=== PATIENT | female | born 1950 | race Caucasian/White ===

== ENCOUNTER 2020-03-13 23:54 | Inpatient (IN) | payer OTHER, SELFPAY ==
--- NOTE | ~2020-03-13 | XR_ITS ---
XR wrist RT 2V DATE: 03/14/2020 13:12 INDICATION: Pain and swelling, rash. No injury. TECHNIQUE: AP and lateral views COMPARISON: None FINDINGS: Diffuse osteopenia. Osteoarthritic change at the first carpometacarpal joint, first digit interphalangeal joint. No fracture or dislocation, periosteal reaction or bone destruction. IMPRESSION: Diffuse osteopenia Osteoarthritis Reviewed, dictated and finalized at location A. INE OPERATOR
--- NOTE | ~2020-03-13 | US_ITS ---
EXAMINATION: US venous doppler UE RT DATE: 03/16/2020 09:18 INDICATION: Right upper limb pain and swelling. TECHNIQUE: Grayscale ultrasound images without and with compression and Doppler ultrasound images of the right upper extremity veins were obtained. COMPARISON: None. FINDINGS: The visualized portions of the right internal jugular vein, subclavian vein, axillary vein, brachial veins, basilic vein, cephalic vein, radial vein, and ulnar vein are patent. IMPRESSION: 1. No deep venous thrombosis. Reviewed, dictated and finalized at location A. STERED PHYSICAL THERAPIST
[2020-03-13 23:54] VITALS: BP 172/69; PULSE 91; RESP 18; TEMP 36.4; O2SAT 96
--- NOTE | 2020-03-14 00:01 | ED.SKABFB ---
HPI - Skin/Abscess/Foreign Bdy General Chief complaint: Skin/Abscess/Foreign Body Stated complaint: Right arm pain History of Present Illness HPI narrative: History limited by extremely poor historian. Brought in by EMS for hand pain. She reports that she has severe pain in the right hand for 1 day. She is not able to provide any further useful history. The snf provides somewhat inconsistent history. She is currently on what seems to be treatment for dermatitis. She may have been treated for cellulitis at some point. The snf reported that her hand was hot and painful, which was new tonight. Related Data Home Medications Medication Instructions Recorded Confirmed Medrol (Alejandro) 03/14/20 03/14/20 acetaminophen 325 mg PO PRN 03/14/20 albuterol sulfate 2.5 mg INHALATION Q4H PRN 03/14/20 aspirin mg PO 03/14/20 benzonatate 100 mg PO TID 03/14/20 benztropine 1 mg PO BID 03/14/20 cholecalciferol (vitamin D3) 125 mcg PO DAILY 03/14/20 [Vitamin D3] diphenhydramine HCl [Benadryl] 25 mg PO HS PRN 03/14/20 docusate sodium 100 mg PO BID 03/14/20 famotidine [Pepcid] 20 mg PO HS 03/14/20 fluoxetine 10 mg PO DAILY 03/14/20 fluticasone propionate [Flovent 1 puff INHALATION Q12H 03/14/20 HFA] furosemide 60 mg PO DAILY 03/14/20 hydroxyzine pamoate 25 mg PO HS 03/14/20 insulin glargine [Lantus Solostar SUBCUT 03/14/20 U-100 Insulin] insulin lispro 03/14/20 ipratropium-albuterol 3 ml INHALATION Q6H PRN 03/14/20 loperamide 2 mg PO Q6H PRN 03/14/20 losartan-hydrochlorothiazide tablet 03/14/20 meclizine 25 mg PO TID PRN 03/14/20 meloxicam 15 mg PO DAILY 03/14/20 montelukast 10 mg PO HS 03/14/20 nifedipine 30 mg PO DAILY 03/14/20 olanzapine 15 mg PO HS 03/14/20 omeprazole 20 mg PO DAILY 03/14/20 pen needle, diabetic [NovoFine 30] 03/14/20 03/14/20 potassium chloride 20 meq PO DAILY 03/14/20 pravastatin 40 mg PO HS 03/14/20 risperidone 6 mg PO HS 03/14/20 sodium chloride 1,000 mg PO DAILY 03/14/20 tetrahydrozoline [Visine] drp 03/14/20 Allergies Allergy/AdvReac Type Severity Reaction Status Date / Time No Known Allergies Allergy Verified 03/14/20 00:03 Review of Systems Review of Systems: All systems reviewed & are unremarkable except as noted in HPI and below Constitutional: Constitutional: Denies fever(s) Cardiovascular: Cardiovascular: Denies chest pain Respiratory: Respiratory: Denies dyspnea Gastrointestinal: Gastrointestinal: Denies nausea Integumentary/Breasts: Skin/Breast: Reports rash Neurologic: Denies numbness and Denies weakness [facility] Past Medical History Medical History (Updated 03/14/20 @ 02:33 by Matty France MD) Hypertension Schizophrenia Type 1 diabetes mellitus without complications Social History Social History (Updated 03/14/20 @ 01:25 by Matty France MD) Living arrangements: snf Exam Const: General: no acute distress and alert Orientation/consciousness: patient oriented x3 HENMT: Head: normal to inspection Resp: Effort & Inspection: normal respiratory effort Auscultation: clear to auscultation bilaterally Cardio: Rate: regular rate Rhythm: regular rhythm GI: GI Palp: Yes Soft to palpation and No Tenderness to palpation present (GI) Skin: Other: erythematous rash to hands and wrists bilaterally Course Vital Signs Vital signs: Vital Signs Temperature 36.4 C L 03/13/20 23:54 Pulse Rate 91 03/13/20 23:54 Respiratory Rate 18 03/13/20 23:54 Blood Pressure 172/69 H 03/13/20 23:54 Pulse Oximetry 96 03/13/20 23:54 Temperature 36.4 C L 03/13/20 23:54 Pulse Rate 72 03/14/20 01:47 Respiratory Rate 18 03/14/20 01:47 Blood Pressure 148/65 H 03/14/20 01:47 Pulse Oximetry 97 03/14/20 01:47 MDM - Skin/Abscess/Foreign Bdy MDM Narrative Medical decision making narrative: Exam more consistent with dermatitis than cellulitis, but given the unreliable history and report acute onse
--- NOTE | 2020-03-14 00:51 | PC.NURSE ---
This nurse contacted Leelee from patient's [place] to get info. She stated the patient has been treated for cellulitis with bactrim, cephalexin , hydrocortisone cream, steroids, benadryl , and doxycycline. Leelee stated the patient did not complain of any pain until tonight. She stated the patient was diagnosed 02/19/20 with cellulitis on her arms.
[2020-03-14 01:46] LABS: Anion Gap 7 mmol/L (8-16); Blood Urea Nitrogen 12 mg/dL (7-17); Calcium 9.6 mg/dL (8.4-10.2); Carbon Dioxide 36 mmol/L (22-30); Chloride 82 mmol/L (98-107); Estimated Glomerular Filt Rate > 60; Glucose 236 mg/dL (65-105); Potassium 4.6 mmol/L (3.4-5.0); Sodium 125 mmol/L (137-145)
[2020-03-14 01:47] VITALS: BP 148/65; PULSE 72; RESP 18; O2SAT 97
[2020-03-14 02:02] LABS: Basophils Absolute Auto 0.1 K/mm3 (0.0-0.1); Basophils Percent Auto 0.5 % (0.2-1.2); Eosinophils Absolute Auto 0.1 K/mm3 (0-0.3); Eosinophils Percent Auto 1.3 % (0-4.4); Hematocrit 38.8 % (37.0-47.0); Hemoglobin 12.7 g/dL (12.0-15.0); Immature Granulocyte Absolute 0.09 K/mm3 (0.00-0.031); Immature Granulocyte Percent A 0.9 % (0-0.5); Lymphocytes Absolute Auto 1.55 K/mm3 (0.9-3.2); Mean Corpuscular HGB Conc 32.7 g/dl (32-36); Mean Corpuscular Hemoglobin 26.1 pg (26-34); Mean Corpuscular Volume 79.8 fl (80-100); Mean Platelet Volume 9.5 fl (7.4-10.4); Monocytes Absolute Auto 0.6 K/mm3 (0.1-0.6); Monocytes Percent Auto 5.3 % (2.6-8.5); Platelet Count Result 352 k/mm3 (150-375); Red Blood Count 4.86 M/mm3 (4.2-5.4); Red Cell Distribution Width 12.6 % (11.5-14.5); White Blood Count 10.3 K/mm3 (4.5-10.0)
[2020-03-14 02:26] LABS: CRP < 0.5 mg/dL (<1.0)
[2020-03-14 03:05] VITALS: BP 153/66; PULSE 65; RESP 19; TEMP 36.7; O2SAT 97
[2020-03-14 03:11] LABS: Erythrocyte Sedimentation Rate 23 mm/hr (0-20)
[2020-03-14 03:15] VITALS: BP 163/63; PULSE 72; RESP 20; TEMP 36.1; O2SAT 93; BMI 40.6
--- NOTE | 2020-03-14 03:44 | ADMGEN ---
This patient, Nona Florez, was admitted to 2 Medical Room 259-. Patient/family oriented to hospital policies and general routines including ID bracelet, bed and alarms, visiting hours, pain management, procedures, bathroom and other care routines, personal items, smoking policy, room service/diet, and visiting hours. Information on how to activate the Rapid Response Team has been discussed. Patient/Family are encouraged to report perceived risks to care and to ask questions if they do not understand what they are told or what they should do.
[2020-03-14 07:57] LABS: Glucose Point of Care 144 (65-105)
--- NOTE | 2020-03-14 08:36 | PM.IMHP ---
H&P: HPI History of Present Illness Date/Time: 03/14/20 08:36 Chief Complaint: Bilateral arm rash Narrative: Nona Florez is a 69 year old female with a past medical history of diabetes, hypertension, schizophrenia, and hyperlipidemia who presented emergency room from [facility] due to erythema of her right arm. I spoke to the detention staff who states this started in the middle of February and she was initially prescribed doxycycline 100 mg b.i.d. and she completed 10 days of this. This did not help a rash so they started a Medrol Dosepak, Benadryl cream, and Pepcid which did not seem to help either. The ER reports that the patient has had severe pain for 1 day but the detention states this is not necessarily true and has been going on for a while. The detention does not think the rash has worsened, it just has not gotten better. The patient is a fair historian and but is not always able to tell me accurate information. She confirms that she has had this rash since last month but it just started hurting in the last few days. She says it itches and hurts bowl. It does not appear to be getting worse or better. She has not used any new products or medications that she is aware of. She has had no neck pain, neck stiffness, change in vision, nausea, vomiting, fevers, chills, abdominal pain, chest pain or shortness of breath. No signs of COVID-19. She had diarrhea yesterday but was only 1 occurrence and had has not recurred. She has no history of autoimmune disease although again, she is not the greatest historian. Review of Systems Review of Systems: All systems reviewed & are unremarkable except as noted in HPI and below PMFSH Past Medical History Medical History (Updated 03/14/20 @ 13:25 by Lynda Cuba PA-C) Asthma GERD (gastroesophageal reflux disease) Hyperlipemia Hypertension Schizophrenia Type 1 diabetes mellitus without complications Surgical History Surgical History (Updated 03/14/20 @ 13:20 by Lynda Cuba PA-C) History of cholecystectomy Family History Family History (Updated 03/14/20 @ 13:21 by Lynda Cuba PA-C) Mother , Patient states she diet pneumonia, unknown other family history including children. No problems noted. Social History Social History (Updated 03/14/20 @ 13:21 by Lynda Cuba PA-C) Social History: Patient does not smoke or drink. She would like to be a full code. She is a long-term resident of [facility] Smoking status: Never smoker Alcohol intake: never Substance use: never Substance use type: does not use Living arrangements: detention Spiritual care concerns: No Meds Home Medications and Allergies Home Medications Medication Instructions Recorded Confirmed Type Medrol (Alejandro) See Rx Instructions .ROUTE .COMPLEX 03/14/20 03/14/20 History acetaminophen 325 mg PO Q4-6H PRN 03/14/20 03/14/20 History albuterol sulfate 2.5 mg INHALATION Q4H PRN 03/14/20 03/14/20 History aspirin 81 mg PO DAILY 03/14/20 03/14/20 History benzonatate 100 mg PO TID 03/14/20 03/14/20 History benztropine 1 mg PO BID 03/14/20 03/14/20 History cholecalciferol (vitamin D3) 125 mcg PO DAILY 03/14/20 03/14/20 History [Vitamin D3] diphenhydramine HCl [Benadryl] 25 mg PO HS PRN 03/14/20 03/14/20 History docusate sodium 100 mg PO BID 03/14/20 03/14/20 History famotidine [Pepcid] 20 mg PO HS 03/14/20 03/14/20 History fluoxetine 10 mg PO DAILY 03/14/20 03/14/20 History fluticasone propionate [Flovent 1 puff INHALATION Q12H 03/14/20 03/14/20 History HFA] furosemide 60 mg PO DAILY 03/14/20 03/14/20 History hydroxyzine pamoate 25 mg PO HS 03/14/20 03/14/20 History insulin glargine [Lantus Solostar 55 unit SUBCUT QA 03/14/20 03/14/20 History U-100 Insulin] insulin glargine [Lantus Solostar 80 unit SUBCUT HS 03/14/20 03/14/20 History U-100 Insulin] insulin lispro See Rx Instructions .ROUTE .COMPLEX 03/14
[2020-03-14 09:24] LABS: Anion Gap 2 mmol/L (8-16); Blood Urea Nitrogen 12 mg/dL (7-17); Calcium 9.4 mg/dL (8.4-10.2); Carbon Dioxide 37 mmol/L (22-30); Chloride 86 mmol/L (98-107); Estimated CRCL calculation 96 ml/min; Estimated Glomerular Filt Rate > 60; Glucose 116 mg/dL (65-105); Hemoglobin A1C 8.4 % (<5.7); Potassium 4.1 mmol/L (3.4-5.0); Sodium 125 mmol/L (137-145)
[2020-03-14 12:06] LABS: Glucose Point of Care 181 (65-105)
[2020-03-14] MEDS: SODIUM CHLORIDE 1 GM TABLET PO (12:15)
[2020-03-14] MEDS: LOSARTAN POTASSIUM 100 MG TABLET PO (12:15)
[2020-03-14] MEDS: NIFEdipine 30 MG TAB.ER.24 PO (12:15)
[2020-03-14] MEDS: MELOXICAM 7.5 MG TABLET 15 MG PO (12:15)
[2020-03-14] MEDS: BENZTROPINE MESYLATE 1 MG TABLET PO ×2 (12:15→17:50)
[2020-03-14] MEDS: PANTOPRAZOLE 40 MG TABLET PO (12:15)
[2020-03-14] MEDS: ASPIRIN 81 MG ENTERIC TABLET PO (12:15)
[2020-03-14] MEDS: methylPREDNISolone 2 MG TABLET 4 MG PO (12:16)
[2020-03-14 13:50] VITALS: BP 169/69; PULSE 104; RESP 17; TEMP 36.7; O2SAT 92
[2020-03-14 16:57] LABS: Glucose Point of Care 200 (65-105)
--- NOTE | 2020-03-14 18:00 | PC.NURSE ---
Dr. Hernandez performed excisional skin biopsy of left arm at bedside. Patient tolerated procedure well. Specimen sent to pathology. Bandaid applied to site.
--- NOTE | 2020-03-14 18:23 | WPDCN ---
Assessment and Plan Assessment and plan (1) Rash of both hands: Code(s): R21 - Rash and other nonspecific skin eruption Status: Acute Assessment and Plan: Skin biopsy tonight. I will be available for additional evaluation if needed. HPI Data of Consult Date/Time: 03/14/20 18:23 Requesting Physician: Lynda Cuba PA-C Primary Care Provider: MANAGER CASE PHYSICIAN Consult Narrative Narrative: Nona Florez is a 69 year old very agreeable female from a [facility] who is admitted due to macular rash of the hands and forearms of unknown duration. The patient is not a good historian but seems to represent that this rash has been on her for months. She says the rash vee and is uncomfortable. She believes it is due to chemicals . She has not been Covi tested as far as I know. She has been treated with Doxycycline, Prednisone and Benadryl to no avail. She has a lengthy list of prescribed medications. Her CRP is 0.5. WBC is 10.3 with slight neutrophilia. I am requested to take a skin biopsy. The patient has no objections to that. She says she is right handed, but has been using her left hand to eat because the right hurts too much. She did not flinch when i briefly examined her right hand. X-ray report suggests only mild osteoarthritis as visible pathology. I agree. The rash encompasses both entire hands and most of the entire forearms, but diminishes proximally. Does not extend above the elbows. There are no sores. The skin is smooth. The color is slightly scott. The patient does not withdraw to exam. She has mild eczema of the palms. Nails are unremarkable. [facility] Past Medical History Medical History (Updated 03/14/20 @ 18:59 by Himanshu Hernandez MD) Asthma GERD (gastroesophageal reflux disease) Hyperlipemia Hypertension Rash of both hands Burning macular rash of both hands and forearms. Not responding to usual treatment. Distribution suggests contact by normal daily activities such as hand washing. Schizophrenia Type 1 diabetes mellitus without complications Surgical History Surgical History (Updated 03/14/20 @ 13:20 by Lynda Cuba PA-C) History of cholecystectomy Family History Family History (Updated 03/14/20 @ 13:21 by Lynda Cuab PA-C) Mother , Patient states she diet pneumonia, unknown other family history including children. No problems noted. Social History Social History (Updated 03/14/20 @ 13:21 by Lynda Cuba PA-C) Social History: Patient does not smoke or drink. She would like to be a full code. She is a long-term resident of [facility] Smoking status: Never smoker Alcohol intake: never Substance use: never Substance use type: does not use Living arrangements: [facility] Spiritual care concerns: No Meds Home Medications and Allergies Home Medications Medication Instructions Recorded Confirmed Type Medrol (Alejandro) See Rx Instructions .ROUTE .COMPLEX 03/14/20 03/14/20 History acetaminophen 325 mg PO Q4-6H PRN 03/14/20 03/14/20 History albuterol sulfate 2.5 mg INHALATION Q4H PRN 03/14/20 03/14/20 History aspirin 81 mg PO DAILY 03/14/20 03/14/20 History benzonatate 100 mg PO TID 03/14/20 03/14/20 History benztropine 1 mg PO BID 03/14/20 03/14/20 History cholecalciferol (vitamin D3) 125 mcg PO DAILY 03/14/20 03/14/20 History [Vitamin D3] diphenhydramine HCl [Benadryl] 25 mg PO HS PRN 03/14/20 03/14/20 History docusate sodium 100 mg PO BID 03/14/20 03/14/20 History famotidine [Pepcid] 20 mg PO HS 03/14/20 03/14/20 History fluoxetine 10 mg PO DAILY 03/14/20 03/14/20 History fluticasone propionate [Flovent 1 puff INHALATION Q12H 03/14/20 03/14/20 History HFA] furosemide 60 mg PO DAILY 03/14/20 03/14/20 History hydroxyzine pamoate 25 mg PO HS 03/14/20 03/14/20 History insulin glargine [Lantus Solostar 55 unit SUBCUT QAM 03/14/20 03/14/20 History U-100 Insulin] insulin glargine [Lantus S
--- NOTE | 2020-03-14 19:03 | PM.PROC ---
Procedure Note - Detailed Date of procedure: 03/14/20 Pre-op diagnosis: Dermatitis/cellulitis of hands Procedure performed: Open 1 x 0.5 cm skin biopsy from left extensor forearm at bedside. Description of procedure: The patient had signed consent for this biopsy. The skin was prepped with alcohol. Anesthesia was given with 1% lidocaine with epinephrine. The full thickness biopsy was taken with a #11 blade. The skin was closed with intradermal 4-0 Vicryl sutures. Tolerated well. Specimen sent to Pathology in [place]. Anesthesia: local Surgeon: Himanshu Hernandez MD
[2020-03-14 20:00] VITALS: PULSE 100; RESP 17; O2SAT 92
[2020-03-14] MEDS: FAMOTIDINE 20 MG TABLET PO (20:44)
[2020-03-14] MEDS: risperiDONE 1 MG TABLET 6 MG PO (20:44)
[2020-03-14] MEDS: PRAVASTATIN SODIUM 20 MG TABLET 40 MG PO (20:45)
[2020-03-14] MEDS: MONTELUKAST SODIUM 10 MG TABLET PO (20:45)
[2020-03-14] MEDS: diphenhydrAMINE HCl CAP 25 MG CAPSULE PO (20:48)
[2020-03-14 21:05] LABS: Glucose Point of Care 276 (65-105)
[2020-03-14] MEDS: INSULIN GLARGINE (*BKC) 100 UNITS/ML 55 UNITS SUB-Q (21:05)
[2020-03-14 21:42] VITALS: BP 157/65; PULSE 100; RESP 17; TEMP 36.7; O2SAT 92
[2020-03-15 05:40] LABS: Hemoglobin 12.2 g/dL (12.0-15.0); Mean Corpuscular HGB Conc 32.1 g/dl (32-36); Mean Corpuscular Hemoglobin 26.5 pg (26-34); Mean Corpuscular Volume 82.6 fl (80-100); Mean Platelet Volume 8.9 fl (7.4-10.4); Platelet Count Result 293 k/mm3 (150-375); White Blood Count 8.7 K/mm3 (4.5-10.0)
[2020-03-15 05:50] LABS: Alanine Aminotransferase 17 U/L (4-35); Albumin Level 3.6 g/dL (3.5-5.1); Alkaline Phosphatase 67 U/L (38-126); Anion Gap 3 mmol/L (8-16); Aspartate Amino Transferase 16 U/L (14-36); Bilirubin,Total 0.3 mg/dL (0.2-1.3); Blood Urea Nitrogen 15 mg/dL (7-17); CRP < 0.5 mg/dL (<1.0); Calcium 9.1 mg/dL (8.4-10.2); Carbon Dioxide 35 mmol/L (22-30); Chloride 88 mmol/L (98-107); Estimated CRCL calculation 96 ml/min; Estimated Glomerular Filt Rate > 60; Glucose 181 mg/dL (65-105); Potassium 4.2 mmol/L (3.4-5.0); Sodium 126 mmol/L (137-145)
[2020-03-15 05:56] VITALS: BP 149/64; PULSE 78; RESP 18; TEMP 36.5; O2SAT 94
[2020-03-15] MEDS: ASPIRIN 81 MG ENTERIC TABLET PO (08:41)
[2020-03-15] MEDS: BETAMETHASONE/CLOTRIMAZOLE CR 15 GM TUBE 1 APPLIC TOPICAL ×2 (08:42→20:13)
[2020-03-15] MEDS: BENZTROPINE MESYLATE 1 MG TABLET PO ×2 (08:42→17:23)
[2020-03-15] MEDS: SODIUM CHLORIDE 1 GM TABLET PO (08:42)
[2020-03-15] MEDS: LOSARTAN POTASSIUM 100 MG TABLET PO (08:43)
[2020-03-15] MEDS: PANTOPRAZOLE 40 MG TABLET PO (08:43)
[2020-03-15] MEDS: MELOXICAM 7.5 MG TABLET 15 MG PO (08:43)
[2020-03-15] MEDS: NIFEdipine 30 MG TAB.ER.24 PO (08:43)
[2020-03-15] MEDS: INSULIN GLARGINE (*BKC) 100 UNITS/ML 35 UNITS SUB-Q (08:54)
[2020-03-15 09:20] VITALS: O2SAT 96
--- NOTE | 2020-03-15 10:47 | PM.IMPN ---
Progress Note: A&P Assessment and Plan (1) Rash of both hands: Code(s): R21 - Rash and other nonspecific skin eruption Status: Acute Assessment and Plan: As stated above, the papular blanchable rash affects both of her upper extremities -unclear etiology at this time -patient states that she uses Dermasil that has done so for years. I advised her to stop using it at this time while we try to sort things out -according to the detention doxycycline, Benadryl, Pepcid and methylprednisone did not improve the rash -and the rash has many differentials which can include dermatitis, psoriasis, fungal infection, sweets etc -patient had an excisional biopsy by Plastic surgery, awaiting pathology -x-ray of the right wrist without osseous abnormalities -I do not suspect systemic infection since her CRP is normal, no fever, and white blood cell count is now normal -no new medications or products (2) Hyponatremia: Code(s): E87.1 - Hypo-osmolality and hyponatremia Status: Acute Assessment and Plan: Patient's sodium is 125 on admission and still 126 -this is actually what is keeping her hospitalized at this time -detention states that her sodium on March 06, 2020 was 131 -she is currently on salt tablets so I am going to continue with this at this time -I have held Lasix, hydrochlorothiazide and Prozac -will order urine sodium tomorrow once she has been off her diuretics -fluid restriction in place (3) Type 1 diabetes mellitus without complications: Code(s): E10.9 - Type 1 diabetes mellitus without complications Status: Inactive Assessment and Plan: Patient's last glucose was 181 -patient takes a high dose of Lantus: 55 units in the morning and 80 units at bedtime at home. Which have been confirmed -continue sliding scale insulin (will start lower than her normal but will likely have to increase) -adjust as necessary (4) Hypertension: Code(s): I10 - Essential (primary) hypertension Status: Inactive Assessment and Plan: Last blood pressure 149/64 -continue losartan and nifedipine -will hold hydrochlorothiazide and Lasix due to hyponatremia -hydralazine p.r.n. will be available as needed for systolic greater than 170 (5) Schizophrenia: Code(s): F20.9 - Schizophrenia, unspecified Status: Inactive Assessment and Plan: Chronic and stable -she has been in the detention since 2017 for this -continue benztropine, olanzapine, and risperidone -will hold the fluoxetine due to hyponatremia (6) GERD (gastroesophageal reflux disease): Code(s): K21.9 - Gastro-esophageal reflux disease without esophagitis Status: Acute Assessment and Plan: Continue Protonix (7) Asthma: Code(s): J45.909 - Unspecified asthma, uncomplicated Status: Inactive Assessment and Plan: Chronic and stable -p.r.n. Inhalers -continue singular Time Spent With Patient Time with patient: 25 - 35 minutes Subjective Date/time seen: 03/15/20 10:47 Interval history: Pt is a 69-year-old female here for hyponatremia and rash. Patient was seen today and states her right hand still feels very painful and she cannot do much with it. She says both arms do itch a little bit. They have not gotten better or worse. Pt denies nausea, vomiting, fevers, chills, constipation, diarrhea, chest pain, sob, cough, or abdominal pain. Review of Systems Review of Systems: All systems reviewed & are unremarkable except as noted in HPI and below Exam Narrative: Exam Narrative: General:Well developed well nourished patient HEENT: Normocephalic, atraumatic, PERRL, Sclerae anicteric, oral mucosa moist. Neck: Supple, no meningeal signs Resp: CTA Heart: RRR with no murmurs Abd: Soft, nontender. No pain to palpation. Positive bowel sounds Skin: Bilateral upper extremity rash. The rash appears papular and blanchable. D
[2020-03-15 11:53] LABS: Glucose Point of Care 371 (65-105)
[2020-03-15 11:53] LABS: Glucose Point of Care 162 (65-105)
[2020-03-15] MEDS: INSULIN ASPART (*BKC) 100 UNITS/ML SUB-Q ×2 (11:53→17:23)
[2020-03-15 14:00] VITALS: BP 134/59; PULSE 102; RESP 20; TEMP 36.6; O2SAT 95
[2020-03-15 17:27] LABS: Glucose Point of Care 270 (65-105)
[2020-03-15 18:11] LABS: SARS-CoV-2 RNA PCR Negative
[2020-03-15 20:00] VITALS: BP 144/56; PULSE 107; RESP 22; TEMP 37.3; O2SAT 92
[2020-03-15] MEDS: diphenhydrAMINE HCl CAP 25 MG CAPSULE PO ×2 (20:13→20:16)
[2020-03-15] MEDS: risperiDONE 1 MG TABLET 6 MG PO (20:13)
[2020-03-15] MEDS: MONTELUKAST SODIUM 10 MG TABLET PO (20:13)
[2020-03-15] MEDS: PRAVASTATIN SODIUM 20 MG TABLET 40 MG PO (20:14)
[2020-03-15] MEDS: FAMOTIDINE 20 MG TABLET PO (20:15)
[2020-03-15] MEDS: ACETAMINOPHEN 325 MG TABLET PO (20:16)
[2020-03-15] MEDS: INSULIN GLARGINE (*BKC) 100 UNITS/ML 55 UNITS SUB-Q (20:21)
[2020-03-15 20:36] LABS: Glucose Point of Care 233 (65-105)
[2020-03-16 04:00] VITALS: BP 162/79; PULSE 93; RESP 22; TEMP 36.1; O2SAT 92
[2020-03-16 06:46] LABS: Anion Gap 1 mmol/L (8-16); Blood Urea Nitrogen 14 mg/dL (7-17); Calcium 8.7 mg/dL (8.4-10.2); Carbon Dioxide 36 mmol/L (22-30); Chloride 92 mmol/L (98-107); Estimated CRCL calculation 96 ml/min; Estimated Glomerular Filt Rate > 60; Glucose 155 mg/dL (65-105); Potassium 4.3 mmol/L (3.4-5.0); Sodium 129 mmol/L (137-145)
[2020-03-16 08:55] LABS: Glucose Point of Care 157 (65-105)
[2020-03-16] MEDS: ASPIRIN 81 MG ENTERIC TABLET PO (09:28)
[2020-03-16] MEDS: MELOXICAM 7.5 MG TABLET 15 MG PO (09:29)
[2020-03-16] MEDS: LOSARTAN POTASSIUM 100 MG TABLET PO (09:29)
[2020-03-16] MEDS: PANTOPRAZOLE 40 MG TABLET PO (09:29)
[2020-03-16] MEDS: BETAMETHASONE/CLOTRIMAZOLE CR 15 GM TUBE 1 APPLIC TOPICAL ×2 (09:29→20:34)
[2020-03-16] MEDS: SODIUM CHLORIDE 1 GM TABLET PO (09:29)
[2020-03-16] MEDS: BENZTROPINE MESYLATE 1 MG TABLET PO ×2 (09:29→17:56)
[2020-03-16] MEDS: NIFEdipine 30 MG TAB.ER.24 PO (09:29)
[2020-03-16] MEDS: INSULIN GLARGINE (*BKC) 100 UNITS/ML 35 UNITS SUB-Q (09:35)
--- NOTE | 2020-03-16 10:13 | PM.IMPN ---
Progress Note: A&P Assessment and Plan (1) Rash of both hands: Code(s): R21 - Rash and other nonspecific skin eruption Status: Acute Assessment and Plan: As stated above, the papular blanchable rash affects both of her upper extremities -unclear etiology at this time -patient states that she uses Dermasil that has done so for years. I advised her to stop using it at this time while we try to sort things out -according to the correction doxycycline, Benadryl, Pepcid and methylprednisone did not improve the rash - the rash has many differentials which can include dermatitis, psoriasis, fungal infection, sweets etc -patient had an excisional biopsy by Plastic surgery, awaiting pathology -x-ray of the right wrist without osseous abnormalities and u/s shows no clot -I do think the pain is getting a little better. Will elevate -Continue ancef -I do not suspect systemic infection since her CRP is normal, no fever, and white blood cell count is now normal -no new medications or products (2) Hyponatremia: Code(s): E87.1 - Hypo-osmolality and hyponatremia Status: Acute Assessment and Plan: Patient's sodium is 125 on admission and better today at 129 -this is actually what is keeping her hospitalized at this time -correction states that her sodium on March 06, 2020 was 131 -she is currently on salt tablets so I am going to continue with this at this time -I have held Lasix, hydrochlorothiazide and Prozac -fluid restriction in place -no need for urine sodium at this time since it is improving and etiology likely from diuretics (3) Type 1 diabetes mellitus without complications: Code(s): E10.9 - Type 1 diabetes mellitus without complications Status: Inactive Assessment and Plan: Patient's last glucose was 157 -patient takes a high dose of Lantus: 55 units in the morning and 80 units at bedtime at home. Which have been confirmed -continue insulin but at a lower dose -continue sliding scale insulin -adjust as necessary (4) Hypertension: Code(s): I10 - Essential (primary) hypertension Status: Inactive Assessment and Plan: Last blood pressure 162/79 prior to home medications -continue losartan and nifedipine -will hold hydrochlorothiazide and Lasix due to hyponatremia -hydralazine p.r.n. will be available as needed for systolic greater than 170 (5) Schizophrenia: Code(s): F20.9 - Schizophrenia, unspecified Status: Inactive Assessment and Plan: Chronic and stable -she has been in the correction since 2017 for this -continue benztropine, olanzapine, and risperidone -will hold the fluoxetine due to hyponatremia (6) GERD (gastroesophageal reflux disease): Code(s): K21.9 - Gastro-esophageal reflux disease without esophagitis Status: Acute Assessment and Plan: Continue Protonix (7) Asthma: Code(s): J45.909 - Unspecified asthma, uncomplicated Status: Inactive Assessment and Plan: Chronic and stable -p.r.n. Inhalers -continue singular Additional Plan hopefully home in 1-2 days Subjective Date/time seen: 03/16/20 10:13 Interval history: Pt is a 69-year-old female here for hyponatremia and rash. Patient was seen today and states her right hand still feels very painful and itchy. She has not been keeping it elevated. She says the pain is slightly better than it was before. Pt denies nausea, vomiting, fevers, chills, constipation, diarrhea, chest pain, sob, cough, or abdominal pain. Exam Narrative: Exam Narrative: General:Well developed well nourished patient HEENT: Normocephalic, atraumatic, PERRL, Sclerae anicteric, oral mucosa moist. Neck: Supple, no meningeal signs Resp: CTA Heart: RRR with no murmurs Abd: Soft, nontender. No pain to palpation. Positive bowel sounds Skin: Bilateral upper extremity rash. The rash appears papular and blanchable. Desq
[2020-03-16 11:37] LABS: Glucose Point of Care 233 (65-105)
[2020-03-16] MEDS: INSULIN ASPART (*BKC) 100 UNITS/ML SUB-Q (11:38)
[2020-03-16 12:57] VITALS: PULSE 101; RESP 18; O2SAT 93
[2020-03-16 14:00] VITALS: BP 153/67; PULSE 101; RESP 20; TEMP 36.5; O2SAT 93
[2020-03-16 17:22] LABS: Glucose Point of Care 161 (65-105)
[2020-03-16 20:00] VITALS: BP 135/49; PULSE 79; RESP 22; TEMP 36.1; O2SAT 92
[2020-03-16] MEDS: risperiDONE 1 MG TABLET 6 MG PO (20:33)
[2020-03-16] MEDS: PRAVASTATIN SODIUM 20 MG TABLET 40 MG PO (20:33)
[2020-03-16] MEDS: FAMOTIDINE 20 MG TABLET PO (20:35)
[2020-03-16] MEDS: MONTELUKAST SODIUM 10 MG TABLET PO (20:36)
[2020-03-16] MEDS: INSULIN GLARGINE (*BKC) 100 UNITS/ML 55 UNITS SUB-Q (20:36)
[2020-03-16 20:45] LABS: Glucose Point of Care 144 (65-105)
[2020-03-17 04:00] VITALS: BP 156/63; PULSE 96; RESP 20; TEMP 36.5; O2SAT 94
[2020-03-17 06:00] LABS: Anion Gap 0 mmol/L (8-16); Blood Urea Nitrogen 12 mg/dL (7-17); Calcium 8.8 mg/dL (8.4-10.2); Carbon Dioxide 38 mmol/L (22-30); Chloride 95 mmol/L (98-107); Estimated CRCL calculation 82 ml/min; Estimated Glomerular Filt Rate > 60; Glucose 98 mg/dL (65-105); Potassium 4.1 mmol/L (3.4-5.0); Sodium 133 mmol/L (137-145)
[2020-03-17 07:45] LABS: Glucose Point of Care 95 (65-105)
[2020-03-17] MEDS: ASPIRIN 81 MG ENTERIC TABLET PO (08:03)
[2020-03-17] MEDS: BETAMETHASONE/CLOTRIMAZOLE CR 15 GM TUBE 1 APPLIC TOPICAL (08:04)
[2020-03-17] MEDS: LOSARTAN POTASSIUM 100 MG TABLET PO (08:04)
[2020-03-17] MEDS: SODIUM CHLORIDE 1 GM TABLET PO (08:04)
[2020-03-17] MEDS: PANTOPRAZOLE 40 MG TABLET PO (08:04)
[2020-03-17] MEDS: MELOXICAM 7.5 MG TABLET 15 MG PO (08:04)
[2020-03-17] MEDS: NIFEdipine 30 MG TAB.ER.24 PO (08:04)
[2020-03-17] MEDS: BENZTROPINE MESYLATE 1 MG TABLET PO (08:04)
[2020-03-17] MEDS: INSULIN GLARGINE (*BKC) 100 UNITS/ML 35 UNITS SUB-Q (08:13)
--- NOTE | 2020-03-17 09:02 | PM.DS ---
DS: Admitting Diagnosis Admitting Diagnosis Admitting Diagnosis: Rash, hyponatremia DS: Discharge Diagnosis Discharge Diagnosis (1) Rash of both hands: Code(s): R21 - Rash and other nonspecific skin eruption Status: Acute Assessment and Plan: As stated above, the papular blanchable rash affects both of her upper extremities -unclear etiology at this time but it did improve with Lotrisone, suspect fungal. -patient states that she uses Dermasil that has done so for years. I advised her to stop using it at this time while we try to sort things out -according to the long-term doxycycline, Benadryl, Pepcid and methylprednisone did not improve the rash - the rash has many differentials which can include dermatitis, psoriasis, fungal infection, sweets etc -patient had an excisional biopsy by Plastic surgery, awaiting pathology -x-ray of the right wrist without osseous abnormalities and u/s shows no clot -I do think the pain is getting a little better and improved with elevation -covered with ancef while here, no need for further abx -I do not suspect systemic infection since her CRP is normal, no fever, and white blood cell count is normal -no new medications or products (2) Hyponatremia: Code(s): E87.1 - Hypo-osmolality and hyponatremia Status: Acute Assessment and Plan: Patient's sodium is 125 on admission and better today at 133 -long-term states that her sodium on March 06, 2020 was 131 -she is currently on salt tablets so I am going to continue with this at this time -I have discontinued hctz and continue lasix and prozac -I have asked the NH to repeat the sodium in one week (3) Type 1 diabetes mellitus without complications: Code(s): E10.9 - Type 1 diabetes mellitus without complications Status: Inactive Assessment and Plan: Patient's last glucose was 163 -continue home insulin -A1c 8.4 (4) Hypertension: Code(s): I10 - Essential (primary) hypertension Status: Inactive Assessment and Plan: Last blood pressure 156/63 -continue losartan, lasix and nifedipine (5) Schizophrenia: Code(s): F20.9 - Schizophrenia, unspecified Status: Inactive Assessment and Plan: Chronic and stable -she has been in the long-term since 2017 for this -continue benztropine, olanzapine, and risperidone -will hold the fluoxetine due to hyponatremia (6) GERD (gastroesophageal reflux disease): Code(s): K21.9 - Gastro-esophageal reflux disease without esophagitis Status: Acute Assessment and Plan: Continue Protonix (7) Asthma: Code(s): J45.909 - Unspecified asthma, uncomplicated Status: Inactive Assessment and Plan: Chronic and stable -continue home treatment DS: Summary Hospital Course Hospital Course: Pt is a 69 y/o female who presented to the ED for arm pain and rash found to have hyponatremia. Vitals in the ER was temp 36.4, pulse 91, RR 18, bp 172/69, pulse 96. WBC 10.3, 12.7 hgb hct 38.8, platelets 352. Sodium 125, potassium 4.6, cl 82, co2 36, bun 12, cr 0.5, glucose 236. CRP normal. Patient was admitted to the hospitalist service and started on Ancef and was given antifungal cream with steroid cream. She underwent a right wrist x-ray as well as the right arm ultrasound to evaluate for DVTs and both were negative for acute pathology. The antifungal and steroid cream, as well as elevation, did help improve the pain and the erythema. A biopsy was taken but is still pending. As for her hyponatremia, her Lasix, Prozac, and hydrochlorothiazide was held and her sodium improved to 133 at the day of discharge. Because she was on Lasix and hydrochlorothiazide, the hydrochlorothiazide was discontinued and she should continue Lasix as well as her Prozac. I recommended her get a repeat sodium in 1 week and adjust medications further as needed. I do not think she need any more
[2020-03-17] MEDS: INSULIN GLARGINE (*BKC) 100 UNITS/ML 20 UNITS SUB-Q (10:32)
[2020-03-17 12:09] LABS: Glucose Point of Care 163 (65-105)
== END 2020-03-17 12:47 | DRG 426 ==
LOC: ANHED 03-14 02:33 → ANH2MED 03-14 02:45
PROVIDERS: Internal Medicine; Physician Assistant; Admitting Provider Family Medicine; Emergency Provider Emergency Medicine; Visit Provider Internal Medicine
DX: E87.1 Hypo-osmolality and hyponatremia (principal); B36.9 Superficial mycosis, unspecified; Z20.822 Contact with and (suspected) exposure to COVID-19; E10.9 Type 1 diabetes mellitus without complications; I10 Essential (primary) hypertension; F20.9 Schizophrenia, unspecified; K21.9 Gastro-esophageal reflux disease without esophagitis; J45.909 Unspecified asthma, uncomplicated; E78.5 Hyperlipidemia, unspecified; Z28.21 Immunization not carried out because of patient refusal; Z79.4 Long term (current) use of insulin; Z79.82 Long term (current) use of aspirin
CPT/HCPCS: 36415; 73100; 80048; 80076; 82948; 83036; 85025; 85027; 85652; 86140; 87040; 88305; 88312; 93971; 96365; 96366; 96367; 96376; 97110; 97116; 97161; 97165; 97530; 97535; 99285; A9270; C9803; G0378; G0379; J0131; J0690; J1815; U0003; U0005

== ENCOUNTER 2020-05-10 22:28 | Inpatient (IN) | payer OTHER, SELFPAY ==
--- NOTE | ~2020-05-10 | XR_ITS ---
EXAMINATION: XR chest 1V portable DATE: 05/10/2020 23:34 INDICATION: Shortness of breath. TECHNIQUE: A single frontal view of the chest was obtained. COMPARISON: None. FINDINGS: There are mild airspace opacities in the mid and lower lung zones. No pleural effusion or p neumothorax. Cardiomegaly is noted. IMPRESSION: 1. Mild airspace opacities in the mid and lower lung zones, consistent with atelectasis versus pneumo omar. 2. Cardiomegaly. Reviewed, dictated and finalized at location A. IMPRESSION: 1. Mild airspace opacities in the mid and lower lung zones, consistent with ate lectasis versus pneumonia. 2. Cardiomegaly.
[2020-05-10 22:30] VITALS: BP 142/59; PULSE 96; RESP 25; O2SAT 99
[2020-05-10 22:39] VITALS: BP 142/59; PULSE 95; RESP 25; O2SAT 97; O2SAT 98
--- NOTE | 2020-05-10 22:50 | ECG_ITS ---
Measurements Intervals [place] Rate: 96 P: 50 OR: 172 QRS: -45 QRSD: 92 T: 48 QT: 337 QTc: 427 Interpretive Statements SINUS RHYTHM VENTRICULAR PREMATURE COMPLEX AND FREQUENT ATRIAL PREMATURE COMPLEXES LOW QRS VOLTAGE IN PRECORDIAL LEADS ANTEROSEPTAL INFARCT, AGE INDETERMINATE INFERIOR INFARCT, AGE INDETERMINATE ABNORMAL ECG Electronically Signed On 05-11-2020 7:22:15 CDT by Ignacio Claire D.O.
[2020-05-10 22:51] VITALS: PULSE 96; RESP 22
--- NOTE | 2020-05-10 22:51 | ED.SOB ---
HPI - SOB/Dyspnea General Chief Complaint: Shortness of Breath/Dyspnea Stated Complaint: difficulty breathing Time Seen by Provider: 05/10/20 22:38 History of Present Illness HPI Narrative: History limited by poor historian. 69 yo female w/ h/o COPD, schizophrenia, hyponatremia brought in by EMS from care home for SOB. She reports that she has been SOB for at least 1 month. Much worse over the past few days. Primary with exertion. She also is not able to tolerate prone position. She does have a mild cough. She also reports worsening emeda throughout BLE and into her abdomen. No CP. She is on a salt pill as well as diuretics. She reports that she used to be on supplemental oxygen, but she does not need it any more. Related Data Home Medications Medication Instructions Recorded Confirmed Flovent HFA 1 puff INHALATION Q12H 03/14/20 03/14/20 Lantus Solostar U-100 Insulin 55 unit SUBCUT QA 03/14/20 03/14/20 Lantus Solostar U-100 Insulin 80 unit SUBCUT HS 03/14/20 03/14/20 acetaminophen 325 mg PO Q4-6H PRN 03/14/20 03/14/20 albuterol sulfate 2.5 mg INHALATION Q4H PRN 03/14/20 03/14/20 aspirin 81 mg PO DAILY 03/14/20 03/14/20 benzonatate 100 mg PO TID 03/14/20 03/14/20 benztropine 1 mg PO BID 03/14/20 03/14/20 cholecalciferol (vitamin D3) 125 mcg PO DAILY 03/14/20 03/14/20 [Vitamin D3] diphenhydramine HCl [Benadryl] 25 mg PO HS PRN 03/14/20 03/14/20 docusate sodium 100 mg PO BID 03/14/20 03/14/20 famotidine [Pepcid] 20 mg PO HS 03/14/20 03/14/20 fluoxetine 10 mg PO DAILY 03/14/20 03/14/20 hydroxyzine pamoate 25 mg PO HS 03/14/20 03/14/20 insulin lispro See Rx Instructions .ROUTE .COMPLEX 03/14/20 03/14/20 ipratropium-albuterol 3 ml INHALATION Q6H PRN 03/14/20 03/14/20 loperamide 2 mg PO Q6H PRN 03/14/20 03/14/20 meclizine 25 mg PO TID PRN 03/14/20 03/14/20 meloxicam 15 mg PO DAILY 03/14/20 03/14/20 montelukast 10 mg PO HS 03/14/20 03/14/20 nifedipine 30 mg PO DAILY 03/14/20 03/14/20 olanzapine 15 mg PO HS 03/14/20 03/14/20 omeprazole 20 mg PO DAILY 03/14/20 03/14/20 pen needle, diabetic 03/14/20 03/14/20 potassium chloride 20 meq PO DAILY 03/14/20 03/14/20 pravastatin 40 mg PO HS 03/14/20 03/14/20 risperidone 6 mg PO HS 03/14/20 03/14/20 sodium chloride 1,000 mg PO DAILY 03/14/20 03/14/20 tetrahydrozoline 1 drp EACH EYE DIRECTED 03/14/20 03/14/20 Allergies Allergy/AdvReac Type Severity Reaction Status Date / Time No Known Allergies Allergy Verified 03/14/20 00:03 Review of Systems Review of Systems: All systems reviewed & are unremarkable except as noted in HPI and below Constitutional: Constitutional: Reports fatigue, Denies fever(s) and Reports weakness Cardiovascular: Cardiovascular: Denies chest pain Respiratory: Respiratory: Reports cough and Reports dyspnea Gastrointestinal: Gastrointestinal: Denies abdominal pain, Reports bloating, Denies nausea and Denies vomiting Genitourinary: Genitourinary: Reports no additional female genitourinary complaints Musculoskeletal: Musculoskeletal: Denies back pain Neurologic: Reports system reviewed and no additional complaints, except as documented PMF Past Medical History Medical History Asthma GERD (gastroesophageal reflux disease) Hyperlipemia Hypertension Rash of both hands Burning macular rash of both hands and forearms. Not responding to usual treatment. Distribution suggests contact by normal daily activities such as hand washing. Schizophrenia Type 1 diabetes mellitus without complications Surgical History Surgical History History of cholecystectomy Family History Family History Mother , Patient states she diet pneumonia, unknown other family history including children. No problems noted. Social History Social History (Reviewed 05/11/20 @ 02:31 by Matty Kirby
[2020-05-10] MEDS: ALBUTEROL SULFATE NEB 2.5 MG/0.5 ML INH 5 MG INHALATION (23:04)
[2020-05-10] MEDS: IPRATROPIUM BR 0.02% INH SOLN 0.5 MG/2.5 ML VIAL INHALATION (23:04)
[2020-05-10 23:13] LABS: Alveolar/Arterial O2 Gradient 57.4 mmHg; Base Excess ABG 2.8 mEq/l (+/-2.0); Carboxyhemoglobin 0.8 % THb (0-2.0); Fractional Inspired Oxygen 28 %; HCO3 ABG 28.4 mEq/l (22.0-26.0); Methemoglobin ABG 0.4 %THb (0-1.5); Oxygen Content ABG 16.2 %vol (16.0-22.0); Oxygen Saturation ABG 96.4 % (95.0-100.0); PCO2 ABG 47.7 mmHg (35.0-45.0); PO2 FiO2 Ratio Arterial Blood 3.07 %; Reduced Hemoglobin 3.8 %THb (0-5.0); Total Hemoglobin 12.1 g/dL (12.0-18.0); pH ABG 7.392 (7.350-7.450)
[2020-05-10 23:14] LABS: Basophils Percent Auto 0.3 % (0.2-1.2); Eosinophils Absolute Auto 0.4 K/mm3 (0-0.3); Eosinophils Percent Auto 3.7 % (0-4.4); Hematocrit 35.9 % (37.0-47.0); Hemoglobin 11.2 g/dL (12.0-15.0); Immature Granulocyte Absolute 0.04 K/mm3 (0.00-0.031); Immature Granulocyte Percent A 0.3 % (0-0.5); Lymphocytes Absolute Auto 2.97 K/mm3 (0.9-3.2); Lymphocytes Percent Auto 25.1 % (18.3-44.2); Mean Corpuscular HGB Conc 31.2 g/dl (32-36); Mean Corpuscular Hemoglobin 26.2 pg (26-34); Mean Corpuscular Volume 84.1 fl (80-100); Mean Platelet Volume 9.7 fl (7.4-10.4); Monocytes Absolute Auto 0.8 K/mm3 (0.1-0.6); Monocytes Percent Auto 6.9 % (2.6-8.5); Neutrophils Absolute Auto 7.5 K/mm3 (1.3-6.7); Neutrophils Percent Auto 63.7 % (45.5-73.1); Platelet Count Result 241 k/mm3 (150-375); Red Blood Count 4.27 M/mm3 (4.2-5.4); Red Cell Distribution Width 12.7 % (11.5-14.5); White Blood Count 11.9 K/mm3 (4.5-10.0)
[2020-05-10 23:14] LABS: Device NASAL CANNULA; Modified Allen's Test Pass; Site Drawn RIGHT RADIAL
[2020-05-10 23:16] VITALS: PULSE 96; RESP 24
[2020-05-10 23:24] LABS: INR 0.9; Prothrombin Time 12.2 Seconds (11.1-14.7)
[2020-05-10 23:25] LABS: Partial Thromboplastin Time 45.3 SECONDS (22.3-36.8)
[2020-05-10 23:27] LABS: Anion Gap 5 mmol/L (8-16); Blood Urea Nitrogen 12 mg/dL (7-17); Carbon Dioxide 32 mmol/L (22-30); Chloride 91 mmol/L (98-107); Estimated CRCL calculation 74 ml/min; Estimated Glomerular Filt Rate > 60; Glucose 323 mg/dL (65-105); Potassium 3.9 mmol/L (3.4-5.0); Sodium 128 mmol/L (137-145)
[2020-05-10 23:39] LABS: NT Pro B Type Natriuretic Pept 24 PG/ML (5-100); Troponin I < 0.012 ng/mL (0.000-0.034)
[2020-05-11] VITALS (14 sets, daily range): BP systolic 111–183; BP diastolic 59–74; PULSE 79–114; RESP 17–24; TEMP 36.1–36.5; O2SAT 95–99; BMI 43.3
[2020-05-11 04:08] LABS: Glucose Point of Care 229 (65-105)
--- NOTE | 2020-05-11 04:17 | ADMGEN ---
This patient, Nona Florez, was admitted to Medical Room 348-. Patient/family oriented to hospital policies and general routines including ID bracelet, bed and alarms, visiting hours, pain management, procedures, bathroom and other care routines, personal items, smoking policy, room service/diet, and visiting hours. Information on how to activate the Rapid Response Team has been discussed. Patient/Family are encouraged to report perceived risks to care and to ask questions if they do not understand what they are told or what they should do.
[2020-05-11 08:40] LABS: Glucose Point of Care 149 (65-105)
[2020-05-11] MEDS: BENZONATATE 100 MG CAPSULE PO ×2 (10:16→17:26)
[2020-05-11] MEDS: ASPIRIN 81 MG ENTERIC TABLET PO (10:16)
[2020-05-11] MEDS: FLUTICASONE PROP 220 MCG (*SP) 12 GM INHALER 1 PUFF INHALATION ×2 (10:16→21:36)
[2020-05-11] MEDS: BENZTROPINE MESYLATE 1 MG TABLET PO ×2 (10:16→17:26)
[2020-05-11] MEDS: FUROSEMIDE INJ 40 MG/4 ML VIAL IV PUSH (10:17)
[2020-05-11] MEDS: DOCUSATE SODIUM 100 MG CAPSULE PO ×2 (10:17→17:26)
[2020-05-11] MEDS: MELOXICAM 7.5 MG TABLET 15 MG PO (10:17)
[2020-05-11] MEDS: FLUoxetine HCL 10 MG CAPSULE PO (10:17)
[2020-05-11] MEDS: CHOLECALCIFEROL 1,000 UNITS TABLET 5000 UNITS PO (10:17)
[2020-05-11] MEDS: PANTOPRAZOLE 40 MG TABLET PO (10:18)
[2020-05-11] MEDS: NIFEdipine 30 MG TAB.ER.24 PO (10:19)
[2020-05-11] MEDS: POTASSIUM CHLORIDE 20 MEQ PACKET (FOR LIQUID) PO (10:21)
[2020-05-11 12:04] LABS: Glucose Point of Care 161 (65-105)
[2020-05-11 12:22] LABS: Alveolar/Arterial O2 Gradient 63.6 mmHg; Base Excess ABG 8.4 mEq/l (+/-2.0); Fractional Inspired Oxygen 28 %; HCO3 ABG 34.7 mEq/l (22.0-26.0); Oxygen Content ABG 17.4 %vol (16.0-22.0); Oxygen Saturation ABG 94.2 % (95.0-100.0); Oxyhemoglobin 94.2 % THb (90.0-100.0); PCO2 ABG 55.2 mmHg (35.0-45.0); PO2 ABG 70.9 mmHg (80.0-100.0); PO2 FiO2 Ratio Arterial Blood 2.53 %; Total Hemoglobin 13.1 g/dL (12.0-18.0); pH ABG 7.416 (7.350-7.450)
[2020-05-11 12:24] LABS: Device NASAL CANNULA; Modified Allen's Test Pass; Site Drawn RIGHT RADIAL
--- NOTE | 2020-05-11 12:44 | PM.IMHP ---
H&P: HPI History of Present Illness Date/Time: 05/11/20 12:44 patient is 69-year-old female with history schizophrenia, morbidly obese, sleep apnea on CPAP presented to emergency department with a complaint shortness of breath patient been persisting for over a month and now getting progressively worse with exertion, patient denies any chest pain, shortness of breath, palpitation fever or chills, patient states see uses CPAP at a [facility], suspect most likely patient congestive heart failure I have started the patient on IV Lasix will do the cardiac echo to further evaluate, will continue to monitor. Chief Complaint: Shortness of breath Review of Systems Review of Systems: All systems reviewed & are unremarkable except as noted in HPI and below PMFSH Past Medical History Medical History Asthma GERD (gastroesophageal reflux disease) Hyperlipemia Hypertension Rash of both hands Burning macular rash of both hands and forearms. Not responding to usual treatment. Distribution suggests contact by normal daily activities such as hand washing. Schizophrenia Type 1 diabetes mellitus without complications Surgical History Surgical History History of cholecystectomy Family History Family History Mother , Patient states she diet pneumonia, unknown other family history including children. No problems noted. Social History Social History Social History: Patient does not smoke or drink. She would like to be a full code. She is a long-term resident of [facility] Smoking status: Never smoker Alcohol intake: never Substance use: never Substance use type: does not use Gender identity (if verbalized by the patient): Female Spiritual care concerns: No Meds Home Medications and Allergies Home Medications Medication Instructions Recorded Confirmed Type Flovent HFA 1 puff INHALATION Q12H 03/14/20 05/11/20 History Lantus Solostar U-100 Insulin 55 unit SUBCUT QAM 03/14/20 05/11/20 History Lantus Solostar U-100 Insulin 80 unit SUBCUT HS 03/14/20 05/11/20 History acetaminophen 325 mg PO Q4-6H PRN 03/14/20 05/11/20 History albuterol sulfate 2.5 mg INHALATION Q4H PRN 03/14/20 05/11/20 History aspirin 81 mg PO DAILY 03/14/20 05/11/20 History benzonatate 100 mg PO TID 03/14/20 05/11/20 History benztropine 1 mg PO BID 03/14/20 05/11/20 History cholecalciferol (vitamin D3) 125 mcg PO DAILY 03/14/20 05/11/20 History [Vitamin D3] diphenhydramine HCl [Benadryl] 25 mg PO HS PRN 03/14/20 05/11/20 History docusate sodium 100 mg PO BID 03/14/20 05/11/20 History famotidine [Pepcid] 20 mg PO HS 03/14/20 05/11/20 History fluoxetine 10 mg PO DAILY 03/14/20 05/11/20 History hydroxyzine pamoate 25 mg PO HS 03/14/20 05/11/20 History insulin lispro See Rx Instructions .ROUTE .COMPLEX 03/14/20 05/11/20 History ipratropium-albuterol 3 ml INHALATION Q6H PRN 03/14/20 05/11/20 History loperamide 2 mg PO Q6H PRN 03/14/20 05/11/20 History meclizine 25 mg PO TID PRN 03/14/20 05/11/20 History meloxicam 15 mg PO DAILY 03/14/20 05/11/20 History montelukast 10 mg PO HS 03/14/20 05/11/20 History nifedipine 30 mg PO DAILY 03/14/20 05/11/20 History olanzapine 15 mg PO HS 03/14/20 05/11/20 History omeprazole 20 mg PO DAILY 03/14/20 05/11/20 History potassium chloride 20 meq PO DAILY 03/14/20 05/11/20 History pravastatin 40 mg PO HS 03/14/20 05/11/20 History risperidone 6 mg PO HS 03/14/20 05/11/20 History sodium chloride 1,000 mg PO DAILY 03/14/20 05/11/20 History tetrahydrozoline 1 drp EACH EYE DIRECTED 03/14/20 05/11/20 History furosemide 40 mg PO DAILY #0 tablet 03/17/20 05/11/20 Rx Allergies Allergy/AdvReac Type Severity Reaction Status Date / Time No Known Allergies Allergy Verified
[2020-05-11] MEDS: ENOXAPARIN 40 MG/0.4 ML SYRINGE SUB-Q (15:32)
[2020-05-11 16:11] LABS: Glucose Point of Care 235 (65-105)
[2020-05-11] MEDS: INSULIN ASPART (*BKC) 100 UNITS/ML SUB-Q (16:21)
[2020-05-11] MEDS: MECLIZINE HCL 25 MG TABLET PO (21:28)
[2020-05-11] MEDS: MONTELUKAST SODIUM 10 MG TABLET PO (21:28)
[2020-05-11] MEDS: hydrOXYzine pamoate 25 MG CAPSULE PO (21:28)
[2020-05-11] MEDS: FAMOTIDINE 20 MG TABLET PO (21:29)
[2020-05-11] MEDS: PRAVASTATIN SODIUM 20 MG TABLET 40 MG PO (21:29)
[2020-05-11] MEDS: risperiDONE 1 MG TABLET 6 MG PO (21:30)
[2020-05-11] MEDS: INSULIN GLARGINE (*BKC) 100 UNITS/ML 16 UNITS SUB-Q (21:40)
[2020-05-11 21:43] LABS: Glucose Point of Care 120 (65-105)
[2020-05-11 22:40] LABS: SARS-CoV-2 RNA PCR Negative
[2020-05-12] VITALS (12 sets, daily range): BP systolic 122–132; BP diastolic 62–78; PULSE 84–121; RESP 18; TEMP 35.9–36.6; O2SAT 94–97
[2020-05-12 08:20] LABS: Hematocrit 39.6 % (37.0-47.0); Hemoglobin 12.2 g/dL (12.0-15.0); Mean Corpuscular HGB Conc 30.8 g/dl (32-36); Mean Corpuscular Hemoglobin 26.3 pg (26-34); Mean Corpuscular Volume 85.3 fl (80-100); Mean Platelet Volume 9.4 fl (7.4-10.4); Platelet Count Result 243 k/mm3 (150-375); Red Blood Count 4.64 M/mm3 (4.2-5.4); Red Cell Distribution Width 12.9 % (11.5-14.5)
[2020-05-12 08:33] LABS: Anion Gap 2 mmol/L (8-16); Blood Urea Nitrogen 14 mg/dL (7-17); Carbon Dioxide 38 mmol/L (22-30); Chloride 95 mmol/L (98-107); Estimated CRCL calculation 100 ml/min; Estimated Glomerular Filt Rate > 60; Glucose 133 mg/dL (65-105); Magnesium 1.7 mg/dL (1.6-2.3); Sodium 135 mmol/L (137-145)
[2020-05-12] MEDS: FLUTICASONE PROP 220 MCG (*SP) 12 GM INHALER 1 PUFF INHALATION ×2 (08:37→20:06)
[2020-05-12] MEDS: ENOXAPARIN 40 MG/0.4 ML SYRINGE SUB-Q (08:38)
[2020-05-12] MEDS: FUROSEMIDE INJ 40 MG/4 ML VIAL IV PUSH (08:38)
[2020-05-12] MEDS: ASPIRIN 81 MG ENTERIC TABLET PO (08:39)
[2020-05-12] MEDS: BENZTROPINE MESYLATE 1 MG TABLET PO ×2 (08:39→16:30)
[2020-05-12] MEDS: CHOLECALCIFEROL 1,000 UNITS TABLET 5000 UNITS PO (08:39)
[2020-05-12] MEDS: NIFEdipine 30 MG TAB.ER.24 PO (08:39)
[2020-05-12] MEDS: DOCUSATE SODIUM 100 MG CAPSULE PO ×2 (08:39→16:30)
[2020-05-12] MEDS: FLUoxetine HCL 10 MG CAPSULE PO (08:39)
[2020-05-12] MEDS: BENZONATATE 100 MG CAPSULE PO ×3 (08:39→16:30)
[2020-05-12] MEDS: MELOXICAM 7.5 MG TABLET 15 MG PO (08:39)
[2020-05-12] MEDS: PANTOPRAZOLE 40 MG TABLET PO (08:39)
[2020-05-12] MEDS: POTASSIUM CHLORIDE 20 MEQ PACKET (FOR LIQUID) PO (08:40)
[2020-05-12 08:50] LABS: Glucose Point of Care 138 (65-105)
--- NOTE | 2020-05-12 10:23 | PM.IMPN ---
Progress Note: A&P Assessment and Plan (1) Shortness of breath on exertion: Code(s): R06.02 - Shortness of breath Status: Acute Assessment and Plan: 05/12/20 10:23 05/11 patient is 69-year-old female with history schizophrenia, morbidly obese, sleep apnea on CPAP presented to emergency department with a complaint shortness of breath patient been persisting for over a month and now getting progressively worse with exertion, patient denies any chest pain, shortness of breath, palpitation fever or chills, patient states see uses CPAP at a senior care, suspect most likely patient congestive heart failure I have started the patient on IV Lasix will do the cardiac echo to further evaluate, will continue to monitor. 05/12 patient refused to wear CPAP last night, however is feeling not as short of breath, patient being diuresed with IV Lasix 40 mg q.day and urinated 6.6 L of urine, will follow-up on a cardiac echo to further evaluate, will continue present management, patient is encouraged to wear her CPAP, will have a PT OT evaluate the patient and further recommendation to follow. Patient with psychiatrist illness patient is mildly mentally challenged. Patient with hyponatremia most likely secondary to psychiatric medication however sodium level is improving. (2) COPD (chronic obstructive pulmonary disease): Code(s): J44.9 - Chronic obstructive pulmonary disease, unspecified Status: Acute Assessment and Plan: Will continue updraft and monitor (3) Hyponatremia: Code(s): E87.1 - Hypo-osmolality and hyponatremia Status: Acute Assessment and Plan: Chronic most likely secondary to psychotic medication will continue to monitor (4) Diabetes: Code(s): E11.9 - Type 2 diabetes mellitus without complications Status: Acute Assessment and Plan: Will resume home medication and monitor with sliding scale Subjective Date/time seen: 05/12/20 10:23 05/11 patient is 69-year-old female with history schizophrenia, morbidly obese, sleep apnea on CPAP presented to emergency department with a complaint shortness of breath patient been persisting for over a month and now getting progressively worse with exertion, patient denies any chest pain, shortness of breath, palpitation fever or chills, patient states see uses CPAP at a senior care, suspect most likely patient congestive heart failure I have started the patient on IV Lasix will do the cardiac echo to further evaluate, will continue to monitor. 05/12 patient refused to wear CPAP last night, however is feeling not as short of breath, patient being diuresed with IV Lasix 40 mg q.day and urinated 6.6 L of urine, will follow-up on a cardiac echo to further evaluate, will continue present management, patient is encouraged to wear her CPAP, will have a PT OT evaluate the patient and further recommendation to follow. Patient with psychiatrist illness patient is mildly mentally challenged. Review of Systems Review of Systems: All systems reviewed & are unremarkable except as noted in HPI and below Exam Narrative: Exam Narrative: Morbidly obese Patient is comfortable, NAD HEENT: eyes are clear and none icteric LUNGS:Bilateral fair air entry with rales and rhonchi HEART: RR S1S2 ABD: BS+, Soft and nontender Lower extremities: no edema SKIN: nonjaundiced Neuro: grossly intact. Objective Data Vital Signs Vital Signs: Vital Signs - 24 hr 05/11/20 12:00 05/11/20 14:00 05/11/20 16:00 Temperature 97.0 F L Pulse Rate 114 H 87 108 H Respiratory Rate 18 Blood Pressure 133/64 Pulse Oximetry 98 05/11/20 20:00 05/11/20 21:35 05/12/20 00:00 Temperature 97.5 F L Pulse Rate 111 H 108 H Respiratory Rate 18 Blood Pressure 144/68 H Pulse Oximetry 95 95 05/12/20 03:23 05/12/20 04:00 05/12/20 06:00 Temperature 96.7 F L Pulse Rate 105 H 112 H Respiratory Rate 18 Blood Pressure 122/62 Pulse Oxi
[2020-05-12 11:28] LABS: Glucose Point of Care 298 (65-105)
[2020-05-12] MEDS: INSULIN ASPART (*BKC) 100 UNITS/ML SUB-Q ×2 (11:29→16:30)
[2020-05-12 17:07] LABS: Glucose Point of Care 230 (65-105)
[2020-05-12] MEDS: INSULIN GLARGINE (*BKC) 100 UNITS/ML 16 UNITS SUB-Q (20:05)
[2020-05-12] MEDS: FAMOTIDINE 20 MG TABLET PO (20:05)
[2020-05-12] MEDS: MONTELUKAST SODIUM 10 MG TABLET PO (20:05)
[2020-05-12] MEDS: hydrOXYzine pamoate 25 MG CAPSULE PO (20:05)
[2020-05-12] MEDS: risperiDONE 1 MG TABLET 6 MG PO (20:05)
[2020-05-12] MEDS: PRAVASTATIN SODIUM 20 MG TABLET 40 MG PO (20:05)
[2020-05-12 20:15] LABS: Glucose Point of Care 237 (65-105)
[2020-05-13] VITALS (14 sets, daily range): BP systolic 118–155; BP diastolic 55–85; PULSE 77–105; RESP 13–20; TEMP 35.7–36.6; O2SAT 92–98
--- NOTE | 2020-05-13 | ECHO_ITS ---
Patient Info Name: Nona Florez Age: 69 years : 1950 Gender: Female Ht: 61 in Wt: 229 lbs BSA: 2.18 m2 HR: 82 bpm BP: 155 / 82 mmHg Technical Quality: Good Exam Date: 05/13/2020 10:07 AM Exam Location: [facility] Patient Status: Inpatient Admit Date: 05/12/2020 Staff Ordering Physician: Sheila Oliva MD Class A Regional Truck Driver: Izaeblla Shelton RDCS Attending Provider: Brenden Macias MD Exam Type: CA echo doppler color flow Study Info Indications R06.02 - Shortness of breath Complete two-dimensional, color flow and Doppler transthoracic echocardiogram is performed. Summary 1. Complete two-dimensional, color flow and Doppler transthoracic echocardiogram is performed. 2. Left ventricular chamber dimension is normal. 3. Left ventricular systolic function is normal, estimated at 60-65%. 4. The left ventricular diastolic function is grade II diastolic dysfunction. 5. E/e' 13 is mildly elevated. 6. Global longitudinal strain is abnormal at -14.2%. 7. The mitral valve has mildly calcified annulus. 8. No pulmonary hypertension, estimated pulmonary arterial systolic pressure is 17 mmHg. Left Ventricle E/e' 13 is mildly elevated. Global longitudinal strain is abnormal at -14.2%. Left ventricular chamber dimension is normal. Left ventricular systolic function is normal, estimated at 60-65%. The left ventricular diastolic function is grade II diastolic dysfunction. Right Ventricle Right ventricular chamber dimension is normal. Right ventricular systolic function is normal. Left Atria Left atrial chamber dimension is normal. Right Atria Right atrial chamber dimension is normal. Aortic Valve The aortic valve is trileaflet. There is no aortic valve stenosis. There is no aortic valve regurgitation. Pulmonic Valve There is no pulmonic regurgitation. Mitral Valve The mitral valve has mildly calcified annulus. There is no mitral valve stenosis. There is no mitral valve regurgitation. Tricuspid Valve There is no tricuspid valve regurgitation. No pulmonary hypertension, estimated pulmonary arterial systolic pressure is 17 mmHg. Pericardium/Pleural There is no pericardial effusion. Inferior Vena Cava Normal inferior vena cava with >50% collapse upon inspiration consistent with normal right atrial pressure, 5 mmHg. Aorta The aortic root size at the sinus of Valsalva is normal. Left Ventricular Outflow Tract Name Value Normal LVOT 2D LVOT Diameter 1.9 cm LVOT Doppler LVOT Peak Gradient 5 mmHg LVOT Mean Gradient 3 mmHg LVOT VTI 25 cm LVOT VTI/AV VTI Ratio 0.8 LVOT Stroke Volume 71 ml LVOT CO 5.7 l/min LVOT CI 2.6 l/min/m2 Pulmonic Valve Name Value Normal RVOT Doppler
[2020-05-13 05:50] LABS: Hemoglobin 11.9 g/dL (12.0-15.0); Mean Corpuscular HGB Conc 30.5 g/dl (32-36); Mean Corpuscular Hemoglobin 26.3 pg (26-34); Mean Corpuscular Volume 86.1 fl (80-100); Mean Platelet Volume 9.4 fl (7.4-10.4); Platelet Count Result 232 k/mm3 (150-375); Red Blood Count 4.53 M/mm3 (4.2-5.4); Red Cell Distribution Width 12.8 % (11.5-14.5); White Blood Count 8.7 K/mm3 (4.5-10.0)
[2020-05-13 06:06] LABS: Potassium 3.8 mmol/L (3.4-5.0)
[2020-05-13 06:10] LABS: Anion Gap 2 mmol/L (8-16); Blood Urea Nitrogen 18 mg/dL (7-17); Carbon Dioxide 39 mmol/L (22-30); Chloride 98 mmol/L (98-107); Estimated CRCL calculation 85 ml/min; Estimated Glomerular Filt Rate > 60; Glucose 191 mg/dL (65-105); Sodium 139 mmol/L (137-145)
[2020-05-13 07:26] LABS: Glucose Point of Care 184 (65-105)
[2020-05-13] MEDS: FLUTICASONE PROP 220 MCG (*SP) 12 GM INHALER 1 PUFF INHALATION ×2 (09:17→20:07)
[2020-05-13] MEDS: ASPIRIN 81 MG ENTERIC TABLET PO (09:19)
[2020-05-13] MEDS: NIFEdipine 30 MG TAB.ER.24 PO (09:19)
[2020-05-13] MEDS: BENZONATATE 100 MG CAPSULE PO ×3 (09:19→16:49)
[2020-05-13] MEDS: POTASSIUM CHLORIDE 20 MEQ PACKET (FOR LIQUID) PO (09:19)
[2020-05-13] MEDS: CHOLECALCIFEROL 1,000 UNITS TABLET 5000 UNITS PO (09:19)
[2020-05-13] MEDS: FLUoxetine HCL 10 MG CAPSULE PO (09:19)
[2020-05-13] MEDS: BENZTROPINE MESYLATE 1 MG TABLET PO ×2 (09:19→16:49)
[2020-05-13] MEDS: DOCUSATE SODIUM 100 MG CAPSULE PO ×2 (09:19→16:49)
[2020-05-13] MEDS: acetaZOLAMIDE TAB 250 MG TABLET PO (09:19)
[2020-05-13] MEDS: PANTOPRAZOLE 40 MG TABLET PO (09:19)
[2020-05-13] MEDS: FUROSEMIDE INJ 40 MG/4 ML VIAL IV PUSH (09:20)
[2020-05-13] MEDS: MELOXICAM 7.5 MG TABLET 15 MG PO (09:20)
[2020-05-13] MEDS: ENOXAPARIN 40 MG/0.4 ML SYRINGE SUB-Q (09:20)
--- NOTE | 2020-05-13 10:07 | PCOTNOTE ---
Attempted OT evaluation, patient getting ECHO at this time, will attempt at later time
--- NOTE | 2020-05-13 10:15 | PCPTNOTE ---
Attempted to see patient this AM for PT evaluation, patient just starting ECHO will attempt later.
[2020-05-13] MEDS: ALBUTEROL SULFATE NEB 2.5 MG/3 ML INH INHALATION (11:12)
[2020-05-13 11:59] LABS: Glucose Point of Care 249 (65-105)
[2020-05-13] MEDS: INSULIN ASPART (*BKC) 100 UNITS/ML SUB-Q ×2 (12:11→17:02)
--- NOTE | 2020-05-13 13:07 | PM.IMPN ---
Progress Note: A&P Assessment and Plan (1) Shortness of breath on exertion: Code(s): R06.02 - Shortness of breath Status: Acute Assessment and Plan: 05/13/20 13:07 05/11 patient is 69-year-old female with history schizophrenia, morbidly obese, sleep apnea on CPAP presented to emergency department with a complaint shortness of breath patient been persisting for over a month and now getting progressively worse with exertion, patient denies any chest pain, shortness of breath, palpitation fever or chills, patient states see uses CPAP at a long term, suspect most likely patient congestive heart failure I have started the patient on IV Lasix will do the cardiac echo to further evaluate, will continue to monitor. 05/12 patient refused to wear CPAP last night, however is feeling not as short of breath, patient being diuresed with IV Lasix 40 mg q.day and urinated 6.6 L of urine, will follow-up on a cardiac echo to further evaluate, will continue present management, patient is encouraged to wear her CPAP, will have a PT OT evaluate the patient and further recommendation to follow. Patient with psychiatrist illness patient is mildly mentally challenged. Patient with hyponatremia most likely secondary to psychiatric medication however sodium level is improving. 05/13 patient wore her CPAP last night, patient is being diuresed and has urinated close to 12 L of urine and states feeling much better not a short of breath, her BUN and creatinine remains stable her sodium is close to normal, will continue present managed will continue to diurese as patient can tolerate and her kidney function remains stable, will continue PT OT and further recommendation to follow (2) COPD (chronic obstructive pulmonary disease): Code(s): J44.9 - Chronic obstructive pulmonary disease, unspecified Status: Acute Assessment and Plan: Will continue updraft and monitor (3) Hyponatremia: Code(s): E87.1 - Hypo-osmolality and hyponatremia Status: Acute Assessment and Plan: Chronic most likely secondary to psychotic medication will continue to monitor (4) Diabetes: Code(s): E11.9 - Type 2 diabetes mellitus without complications Status: Acute Assessment and Plan: Will resume home medication and monitor with sliding scale Subjective Date/time seen: 05/13/20 13:07 05/11 patient is 69-year-old female with history schizophrenia, morbidly obese, sleep apnea on CPAP presented to emergency department with a complaint shortness of breath patient been persisting for over a month and now getting progressively worse with exertion, patient denies any chest pain, shortness of breath, palpitation fever or chills, patient states see uses CPAP at a long term, suspect most likely patient congestive heart failure I have started the patient on IV Lasix will do the cardiac echo to further evaluate, will continue to monitor. 05/12 patient refused to wear CPAP last night, however is feeling not as short of breath, patient being diuresed with IV Lasix 40 mg q.day and urinated 6.6 L of urine, will follow-up on a cardiac echo to further evaluate, will continue present management, patient is encouraged to wear her CPAP, will have a PT OT evaluate the patient and further recommendation to follow. Patient with psychiatrist illness patient is mildly mentally challenged. Patient with hyponatremia most likely secondary to psychiatric medication however sodium level is improving. 05/13 patient wore her CPAP last night, patient is being diuresed and has urinated close to 12 L of urine and states feeling much better not a short of breath, her BUN and creatinine remains stable her sodium is close to normal, will continue present managed will continue to diurese as patient can tolerate and her kidney function remains stable, will continue PT OT and further recommendation to follow Review of Systems Review of Systems: All systems re
[2020-05-13 17:02] LABS: Glucose Point of Care 256 (65-105)
[2020-05-13] MEDS: risperiDONE 1 MG TABLET 6 MG PO (20:08)
[2020-05-13] MEDS: hydrOXYzine pamoate 25 MG CAPSULE PO (20:08)
[2020-05-13] MEDS: PRAVASTATIN SODIUM 20 MG TABLET 40 MG PO (20:08)
[2020-05-13] MEDS: MONTELUKAST SODIUM 10 MG TABLET PO (20:08)
[2020-05-13] MEDS: FAMOTIDINE 20 MG TABLET PO (20:08)
[2020-05-13] MEDS: INSULIN GLARGINE (*BKC) 100 UNITS/ML 16 UNITS SUB-Q (20:10)
[2020-05-13 20:15] LABS: Glucose Point of Care 245 (65-105)
[2020-05-14] VITALS: PULSE 97
[2020-05-14 00:42] LABS: SARS-CoV-2 RNA PCR Negative
[2020-05-14 04:00] VITALS: PULSE 80
[2020-05-14 05:48] VITALS: BP 151/71; PULSE 88; RESP 16; TEMP 36.4; O2SAT 91
[2020-05-14 05:51] LABS: Hematocrit 39.7 % (37.0-47.0); Mean Corpuscular HGB Conc 30.2 g/dl (32-36); Mean Corpuscular Hemoglobin 25.5 pg (26-34); Mean Corpuscular Volume 84.5 fl (80-100); Mean Platelet Volume 9.6 fl (7.4-10.4); Platelet Count Result 252 k/mm3 (150-375); Red Cell Distribution Width 12.4 % (11.5-14.5); White Blood Count 9.2 K/mm3 (4.5-10.0)
[2020-05-14 06:06] LABS: Anion Gap 4 mmol/L (8-16); Blood Urea Nitrogen 22 mg/dL (7-17); Calcium 9.4 mg/dL (8.4-10.2); Carbon Dioxide 33 mmol/L (22-30); Chloride 99 mmol/L (98-107); Estimated CRCL calculation 85 ml/min; Estimated Glomerular Filt Rate > 60; Glucose 252 mg/dL (65-105); Sodium 136 mmol/L (137-145)
[2020-05-14 08:00] VITALS: PULSE 97
[2020-05-14 08:11] LABS: Glucose Point of Care 272 (65-105)
[2020-05-14] MEDS: ENOXAPARIN 40 MG/0.4 ML SYRINGE SUB-Q (08:25)
[2020-05-14] MEDS: PANTOPRAZOLE 40 MG TABLET PO (08:26)
[2020-05-14] MEDS: POTASSIUM CHLORIDE 20 MEQ PACKET (FOR LIQUID) PO (08:26)
[2020-05-14] MEDS: NIFEdipine 30 MG TAB.ER.24 PO (08:26)
[2020-05-14] MEDS: DOCUSATE SODIUM 100 MG CAPSULE PO (08:26)
[2020-05-14] MEDS: BENZTROPINE MESYLATE 1 MG TABLET PO (08:27)
[2020-05-14] MEDS: BENZONATATE 100 MG CAPSULE PO ×2 (08:27→12:16)
[2020-05-14] MEDS: ASPIRIN 81 MG ENTERIC TABLET PO (08:27)
[2020-05-14] MEDS: FLUoxetine HCL 10 MG CAPSULE PO (08:27)
[2020-05-14] MEDS: MELOXICAM 7.5 MG TABLET 15 MG PO (08:27)
[2020-05-14] MEDS: CHOLECALCIFEROL 1,000 UNITS TABLET 5000 UNITS PO (08:27)
[2020-05-14] MEDS: FUROSEMIDE INJ 40 MG/4 ML VIAL IV PUSH (08:28)
[2020-05-14] MEDS: FLUTICASONE PROP 220 MCG (*SP) 12 GM INHALER 1 PUFF INHALATION (08:28)
[2020-05-14] MEDS: INSULIN ASPART (*BKC) 100 UNITS/ML SUB-Q ×2 (08:35→12:16)
--- NOTE | 2020-05-14 09:34 | PM.DS ---
DS: Admitting Diagnosis Admitting Diagnosis Admitting Diagnosis: Chief Complaint: Shortness of breath DS: Discharge Diagnosis Discharge Diagnosis (1) Shortness of breath on exertion: Code(s): R06.02 - Shortness of breath Status: Acute Assessment and Plan: 05/13/20 13:07 05/11 patient is 69-year-old female with history schizophrenia, morbidly obese, sleep apnea on CPAP presented to emergency department with a complaint shortness of breath patient been persisting for over a month and now getting progressively worse with exertion, patient denies any chest pain, shortness of breath, palpitation fever or chills, patient states see uses CPAP at a assisted, suspect most likely patient congestive heart failure I have started the patient on IV Lasix will do the cardiac echo to further evaluate, will continue to monitor. 05/12 patient refused to wear CPAP last night, however is feeling not as short of breath, patient being diuresed with IV Lasix 40 mg q.day and urinated 6.6 L of urine, will follow-up on a cardiac echo to further evaluate, will continue present management, patient is encouraged to wear her CPAP, will have a PT OT evaluate the patient and further recommendation to follow. Patient with psychiatrist illness patient is mildly mentally challenged. Patient with hyponatremia most likely secondary to psychiatric medication however sodium level is improving. 05/13 patient wore her CPAP last night, patient is being diuresed and has urinated close to 12 L of urine and states feeling much better not a short of breath, her BUN and creatinine remains stable her sodium is close to normal, will continue present managed will continue to diurese as patient can tolerate and her kidney function remains stable, will continue PT OT and further recommendation to follow (2) COPD (chronic obstructive pulmonary disease): Code(s): J44.9 - Chronic obstructive pulmonary disease, unspecified Status: Acute Assessment and Plan: Will continue updraft and monitor (3) Hyponatremia: Code(s): E87.1 - Hypo-osmolality and hyponatremia Status: Acute Assessment and Plan: Chronic most likely secondary to psychotic medication will continue to monitor (4) Diabetes: Code(s): E11.9 - Type 2 diabetes mellitus without complications Status: Acute Assessment and Plan: Will resume home medication and monitor with sliding scale DS: Summary Hospital Course Reason for hospitalization: patient is 69-year-old female with history schizophrenia, morbidly obese, sleep apnea on CPAP presented to emergency department with a complaint shortness of breath patient been persisting for over a month and now getting progressively worse with exertion, patient denies any chest pain, shortness of breath, palpitation fever or chills, patient states see uses CPAP at a assisted, suspect most likely patient congestive heart failure I have started the patient on IV Lasix will do the cardiac echo to further evaluate, will continue to monitor. Chief Complaint: Shortness of breath Hospital Course: patient is 69-year-old female with history schizophrenia, morbidly obese, sleep apnea on CPAP presented to emergency department with a complaint shortness of breath patient been persisting for over a month and now getting progressively worse with exertion, patient denies any chest pain, shortness of breath, palpitation fever or chills, patient states see uses CPAP at a assisted, suspect most likely patient congestive heart failure I have started the patient on IV Lasix will do the cardiac echo to further evaluate, will continue to monitor. 05/12 patient refused to wear CPAP last night, however is feeling not as short of breath, patient being diuresed with IV Lasix 40 mg q.day and urinated 6.6 L of urine, will follow-up on a cardiac echo to further evaluate, will continue present management, patient is encouraged to wear her CPAP
[2020-05-14 12:13] LABS: Glucose Point of Care 315 (65-105)
== END 2020-05-14 13:32 | DRG 194 ==
LOC: ANHED 05-11 02:07 → ANH3MED 05-11 02:15
PROVIDERS: Physician Assistant; Admitting Provider Family Medicine; Emergency Provider Emergency Medicine; Visit Provider Family Medicine
DX: I11.0 Hypertensive heart disease with heart failure (principal); I50.33 Acute on chronic diastolic (congestive) heart failure; J44.9 Chronic obstructive pulmonary disease, unspecified; Z20.828 Contact with and (suspected) exposure to other viral communicable diseases; E87.1 Hypo-osmolality and hyponatremia; T43.505A Adverse effect of unspecified antipsychotics and neuroleptics, initial encounter; E11.9 Type 2 diabetes mellitus without complications; F20.9 Schizophrenia, unspecified; G47.30 Sleep apnea, unspecified; F70 Mild intellectual disabilities; E66.01 Morbid (severe) obesity due to excess calories; Z68.41 Body mass index [BMI] 40.0-44.9, adult
CPT/HCPCS: 36415; 36600; 71045; 80048; 82375; 82805; 83050; 83735; 83880; 84484; 85025; 85027; 85610; 85730; 93005; 93306; 94640; 94667; 96372; 96374; 97110; 97116; 97161; 97165; 99285; A9270; C9803; G0378; G0379; J1650; J1815; J1940; U0003; U0005

== ENCOUNTER 2020-06-07 08:16 | Outpatient (CLI) | payer OTHER, SELFPAY ==
--- NOTE | ~2020-06-07 | MM_ITS ---
EXAMINATION: MM screening anne BI w diamond HISTORY: Screening mammogram TECHNIQUE: Craniocaudal and mediolateral oblique 3-D tomosynthesis images were obtained and synthetic 2-D images were generated. CAD analysis was submitted and interpreted. COMPARISON: No prior mammogram is available for comparison at this institution. BREAST PARENCHYMAL COMPOSITION: There are scattered areas of fibroglandular density. FINDINGS: There are scattered bilateral benign calcifications. There are scattered bilateral small nodular densities. Bilateral diagnostic mammography and breast ul trasound examination are recommended. IMPRESSION: 1. Scattered bilateral nodular densities 2. Bilateral diagnostic mammography and breast ultrasound examination are recommended. BI-RADS Category 0: Incomplete: Needs additional imaging evaluation. Reviewed, dictated and finalized at location A. IMPRESSION: 1. Scattered bilateral nodular densities 2. Bilateral diagnostic mammography and breast ultrasound examination are recom mended. BI-RADS Category 0: Incomplete: Needs additional imaging evaluation.
== END 2020-06-07 08:17 | disposition home or self-care (01) ==
LOC: ANHIMG 08:19
DX: Z12.31 Encounter for screening mammogram for malignant neoplasm of breast (principal); R92.8 Other abnormal and inconclusive findings on diagnostic imaging of breast
CPT/HCPCS: 77063; 77067

== ENCOUNTER 2020-09-03 22:21 | Emergency (ER) | payer OTHER, SELFPAY ==
--- NOTE | ~2020-09-03 | XR_ITS ---
EXAMINATION: XR chest 1V portable INDICATION: Shortness of breath TECHNIQUE: Portable AP chest at 2235 hours COMPARISON: None available FINDINGS: Cardiomegaly is noted. There is a mild diffuse interstitial pattern. No pleural effusion or pneumothorax is identified. An azygos fissure is noted. IMPRESSION: 1. Cardiomegaly with likely mild pulmonary edema. Reviewed, dictated and finalized at location A.
--- NOTE | 2020-09-03 22:21 | ECG_ITS ---
Measurements Intervals [place] Rate: 83 P: -11 FL: 152 QRS: -46 QRSD: 93 T: 32 QT: 361 QTc: 425 Interpretive Statements SINUS OR ECTOPIC ATRIAL RHYTHM ATRIAL PREMATURE COMPLEX ANTEROSEPTAL INFARCT, AGE INDETERMINATE INFERIOR INFARCT, AGE INDETERMINATE BASELINE WANDER- I, II, III, AVR, AVL, AVF, V1-V3 ABNORMAL ECG Electronically Signed On 09-04-2020 6:19:51 CDT by Ignacio Claire D.O.
--- NOTE | 2020-09-03 22:23 | ED.SOB ---
HPI - SOB/Dyspnea General Chief Complaint: Shortness of Breath/Dyspnea Stated Complaint: COPD EXAC History of Present Illness HPI Narrative: 69 yo female w/ h/i COPD presents to the ED c/o SOB. SOB for the past few days. Associated with cough. Not improving with COPD meds. No fever, nausea, vomiting, chest pain. Review of Systems Review of Systems: All systems reviewed & are unremarkable except as noted in HPI and below PMFSH Past Medical History Medical History (Updated 09/12/20 @ 07:28 by Matty France MD) COPD (chronic obstructive pulmonary disease) Social History Social History (Updated 09/12/20 @ 07:29 by Matty France MD) Gender identity (if verbalized by the patient): Female Exam Const: General: no acute distress and alert Orientation/consciousness: patient oriented x3 HENMT: Head: normal to inspection Neck: Neck: normal visual inspection and no lymphadenopathy Resp: Effort & Inspection: normal respiratory effort Auscultation: rhonchi Cardio: Jugular venous distension: no JVD Rate: regular rate Rhythm: regular rhythm Heart sounds: no murmurs GI: Inspection: non-distended GI Palp: Yes Soft to palpation and No Tenderness to palpation present (GI) Skin: General skin exam: normal color Neuro: General: patient oriented x3 and moves all extremities Speech: normal speech Psych: Appearance: well kempt Affect: normal affect Course Vital Signs Vital signs: Vital Signs Temperature 36.6 C 09/03/20 22:24 Pulse Rate 83 09/03/20 22:24 Respiratory Rate 20 09/03/20 22:24 Blood Pressure 123/61 09/03/20 22:24 Pulse Oximetry 94 09/03/20 22:24 Temperature 36.6 C 09/03/20 22:24 Pulse Rate 77 09/04/20 10:01 Respiratory Rate 18 09/04/20 10:01 Blood Pressure 134/54 L 09/04/20 10:01 Pulse Oximetry 97 09/04/20 10:01 MDM - SOB/Dyspnea Differential Diagnosis Differential diagnosis: Likely acute exacerbation of chronic obstructive airways disease, congestive heart failure and community acquired pneumonia Medical Records Attestation: I reviewed the patient's medical records. Lab Data Attestation: I reviewed the patient's lab results. Result diagrams: 09/03/20 22:43 09/03/20 22:43 Labs: Lab Results 09/03/20 09/03/20 09/03/20 Range/Units 22:43 22:43 22:43 WBC 8.7 (4.5-10.0) K/mm3 RBC 5.07 (4.2-5.4) M/mm3 Hgb 12.7 (12.0-15.0) g/dL Hct 42.9 (37.0-47.0) % MCV 84.6 (80-100) fl MCH 25.0 L (26-34) pg MCHC 29.6 L (32-36) g/dl RDW 13.4 (11.5-14.5) % Plt Count 242 (150-375) k/mm3 MPV 10.0 (7.4-10.4) fl Immature Gran % (Auto) 0.2 (0-0.5) % Neut % (Auto) 61.8 (45.5-73.1) % Lymph % (Auto) 25.0 (18.3-44.2) % Keith % (Auto) 7.3 (2.6-8.5) % Eos % (Auto) 5.1 H (0-4.4) % Baso % (Auto) 0.6 (0.2-1.2) % Lymph # (Auto) 2.18 (0.9-3.2) K/mm3 Keith # (Auto) 0.6 (0.1-0.6) K/mm3 Eos # (Auto) 0.4 H (0-0.3) K/mm3 Baso # (Auto) 0.1 (0.0-0.1) K/mm3 Abs Immat Gran (auto) 0.02 (0.00-0.031) K/mm3 Absolute Neuts (auto) 5.4 (1.3-6.7) K/mm3 Absolute Nucleated RBC 0.0 (0.0-0.012) K/mm3 Nucleated RBC % 0.0 (0.0-0.2) % PT 11.7 (11.1-14.7) Seconds INR 0.9 APTT 43.5 H (22.3-36.8) SECONDS Sodium 136 L (137-145) mmol/L Potassium 4.0 (3.4-5.0) mmol/L Chloride 94 L (98-107) mmol/L Carbon Dioxide 35 H (22-30) mmol/L Anion Gap 7 L (8-16) mmol/L BUN 18 H (7-17) mg/dL Creatinine 0.70 (0.7-1.0) mg/dL Estim Creat Clear Calc 73 ml/min Estimated GFR > 60 (59 - ) Glucose 275 H (65-110) mg/dL Calcium 9.5 (8.4-10.2) mg/dL Troponin I < 0.012 (0.000-0.034) ng/mL NT-Pro-B Natriuret Pep 25 (5-100) pg/mL Imaging Data Radiologist's impression: ITS Impressions Chest X-Ray 09/03/20 22:49 IMPRESSION: 1. Cardiomegaly with likely mild pulmonary edema. Discharge Pl
[2020-09-03 22:24] VITALS: BP 123/61; PULSE 83; RESP 20; TEMP 36.6; O2SAT 94
[2020-09-03 22:51] LABS: Basophils Absolute Auto 0.1 K/mm3 (0.0-0.1); Basophils Percent Auto 0.6 % (0.2-1.2); Eosinophils Absolute Auto 0.4 K/mm3 (0-0.3); Eosinophils Percent Auto 5.1 % (0-4.4); Hematocrit 42.9 % (37.0-47.0); Hemoglobin 12.7 g/dL (12.0-15.0); Immature Granulocyte Absolute 0.02 K/mm3 (0.00-0.031); Immature Granulocyte Percent A 0.2 % (0-0.5); Lymphocytes Absolute Auto 2.18 K/mm3 (0.9-3.2); Mean Corpuscular HGB Conc 29.6 g/dl (32-36); Mean Corpuscular Volume 84.6 fl (80-100); Monocytes Absolute Auto 0.6 K/mm3 (0.1-0.6); Monocytes Percent Auto 7.3 % (2.6-8.5); Neutrophils Absolute Auto 5.4 K/mm3 (1.3-6.7); Neutrophils Percent Auto 61.8 % (45.5-73.1); Platelet Count Result 242 k/mm3 (150-375); Red Blood Count 5.07 M/mm3 (4.2-5.4); Red Cell Distribution Width 13.4 % (11.5-14.5); White Blood Count 8.7 K/mm3 (4.5-10.0)
[2020-09-03 23:26] LABS: INR 0.9; Prothrombin Time 11.7 Seconds (11.1-14.7)
[2020-09-03 23:27] LABS: Partial Thromboplastin Time 43.5 SECONDS (22.3-36.8)
[2020-09-03 23:28] LABS: Anion Gap 7 mmol/L (8-16); Blood Urea Nitrogen 18 mg/dL (7-17); Calcium 9.5 mg/dL (8.4-10.2); Carbon Dioxide 35 mmol/L (22-30); Chloride 94 mmol/L (98-107); Estimated CRCL calculation 73 ml/min; Estimated Glomerular Filt Rate > 60; Glucose 275 mg/dL (65-110); Sodium 136 mmol/L (137-145)
[2020-09-03 23:40] LABS: NT Pro B Type Natriuretic Pept 25 pg/mL (5-100); Troponin I < 0.012 ng/mL (0.000-0.034)
[2020-09-03] MEDS: FUROSEMIDE INJ 40 MG/4 ML VIAL IV PUSH (23:46)
[2020-09-04] VITALS (7 sets, daily range): BP systolic 100–134; BP diastolic 46–67; PULSE 74–87; RESP 18–20; O2SAT 94–97
--- NOTE | 2020-09-04 02:07 | PC.NURSE ---
pt walk with pulse-ox ra @ 91
--- NOTE | 2020-09-04 02:46 | PC.NURSE ---
Addendum entered by Luna Cantu 09/04/20 02:47: made contact with shirley to transfer pt back to [facility] eta [id number] Original Note: made contact with shirley to transfer
== END 2020-09-04 10:00 ==
PROVIDERS: Emergency Provider Emergency Medicine
DX: J44.9 Chronic obstructive pulmonary disease, unspecified (principal); I51.7 Cardiomegaly; I49.1 Atrial premature depolarization; R94.31 Abnormal electrocardiogram [ECG] [EKG]
CPT/HCPCS: 36415; 71045; 80048; 83880; 84484; 85025; 85610; 85730; 93005; 96365; 96366; 96375; 99284; J0131; J1940

== ENCOUNTER 2020-09-26 11:52 | Inpatient (IN) | payer OTHER, SELFPAY ==
--- NOTE | ~2020-09-26 | XR_ITS ---
XR chest 1V portable DATE: 09/28/2020 10:26 INDICATION: Chest pain, shortness of breath, difficulty breathing TECHNIQUE: Portable upright AP views on 09/28/2020 at 1019 hours COMPARISON: 09/26/2020 AP and lateral chest 09/26/2020 CT pulmonary scan FINDINGS: Cardiomegaly. There is pulmonary vascular redistribution suggesting pulmonary venous hypert ension. There is mild prominence of the minor fissure. There is mild atelectasis in the lower lung zones. The lungs otherwise appear clear of infiltrate or consolidation. No pleural effusion or pneumothorax is detected. Azygos lobe, normal variant. Degenerative spurring of the thoracic spine. Diffuse osteopenia. IMPRESSION: Cardiomegaly, pulmonary vascular redistribution, mild prominence of minor fissure; these findings may be consistent with mild congestive heart failure Mild atelectasis in the lower lung zones Reviewed, dictated and finalized at location A. IMPRESSION: Cardiomegaly, pulmonary vascular redistribution, mild prominence of minor fissure; these findings may be consistent with mild congestive heart ida lure Mild atelectasis in the lower lung zones
--- NOTE | ~2020-09-26 | CT_ITS ---
EXAMINATION: CTA chest PE protocol DATE: 09/26/2020 17:20 INDICATION: Shortness of breath TECHNIQUE: Computed tomography angiography (CTA) of the chest was performed with 100 mL Omnipaque-350 intravenous contrast timed to evaluate the pulmonary arteries. Coronal maximum intensity projection 3D-reconstructions were created by the technologist. Automated exposure control and iterative reconst ruction technique were employed. Exam dose: 694.50 mGy-cm total exam DLP. COMPARISON: 09/26/2020 2 view chest FINDINGS: There is diagnostic contrast enhancement of the pulmonary arteries and no evidence of pulmo nary embolism. Cardiomegaly. Coronary artery calcifications. No pericardial effusion. No thoracic aortic aneurysm or dissection. No hilar or mediastinal mass lesion or lymphadenopathy. Azygos lobe, normal variant. Scattered up to approximately 12 mm thyroid masses are suggested. Scattered patchy groundglass infiltrates may represent mild bilateral pneumonia versus small airways disease. There is mild discoid atelectasis or scarring at the lingula. Small sliding hiatal hernia. Degenerative spurring of the cervical and thoracic spine; diffuse idiopathic skeletal hyperostosis of the thoracic spine.. No suspicious osteolytic or osteoblastic lesions are noted. IMPRESSION: Cardiomegaly Patchy bilateral groundglass infiltrates which may be secondary to mild pneumonitis or small airways disease Reviewed, dictated and finalized at Location A. Reviewed, dictated and finalized at location A. IMPRESSION: Cardiomegaly Patchy bilateral groundglass infiltrates which may be secondary to mild pneumon itis or small airways disease
--- NOTE | ~2020-09-26 | XR_ITS ---
EXAMINATION: XR chest 2V DATE: 09/26/2020 14:09 INDICATION: Dyspnea on exertion. TECHNIQUE: Frontal and lateral views of the chest were obtained. COMPARISON: Chest single view 09/03/2020 FINDINGS: Sensitivity is decreased by obesity. There is no pneumonia, pleural effusion, or pneumothor ax. Cardiomegaly is noted. IMPRESSION: 1. Cardiomegaly. Reviewed, dictated and finalized at location B. IMPRESSION: 1. Cardiomegaly.
--- NOTE | ~2020-09-26 | XR_ITS ---
XR abdomen/kub 1V DATE: 10/01/2020 16:58 INDICATION: Abdominal distention TECHNIQUE: Supine AP views COMPARISON: 09/30/2020 KUB FINDINGS: The abdomen is relatively gasless, limiting evaluation of the intestinal tract. No apparent visceromegaly is noted. No intraperitoneal free air is detected. IMPRESSION: Relatively gasless abdomen Reviewed, dictated and finalized at Location A. Reviewed, dictated and finalized at location A. IMPRESSION: Relatively gasless abdomen
--- NOTE | ~2020-09-26 | XR_ITS ---
EXAMINATION: XR chest 2V DATE: 09/30/2020 11:17 INDICATION: Pneumonia. Difficulty breathing. TECHNIQUE: frontal and lateral views of the chest were obtained. COMPARISON: Chest radiograph dated 09/28/2020 FINDINGS: Sensitivity decreased by obesity. Azygos lobe and fissure. No definitive airspace opacities, pulmonar y edema, pleural effusion or pneumothorax. Cardiomegaly. IMPRESSION: 1. Cardiomegaly. Reviewed, dictated and finalized at location B. IMPRESSION: 1. Cardiomegaly.
--- NOTE | ~2020-09-26 | XR_ITS ---
EXAMINATION: XR abdomen/kub 1V DATE: 09/30/2020 14:20 INDICATION: Distended abdomen. TECHNIQUE: A supine view of the abdomen on 2 radiographs was obtained. COMPARISON: Chest CT 09/26/2020 FINDINGS: There are no dilated loops of small or large bowel. There is a paucity of stool in the colo n. The stomach is distended, new from 09/26/2020. IMPRESSION: 1. Distended stomach, new from 09/26/2020. Reviewed, dictated and finalized at location A.
--- NOTE | 2020-09-26 12:46 | ECG_ITS ---
Measurements Intervals [place] Rate: 83 P: -32 AR: 152 QRS: -44 QRSD: 98 T: 19 QT: 342 QTc: 403 Interpretive Statements SINUS OR ECTOPIC ATRIAL RHYTHM ANTEROSEPTAL INFARCT, AGE INDETERMINATE INFERIOR INFARCT, AGE INDETERMINATE BASELINE ARTIFACT- I, III, AVR, AVL, AVF, V1-V3 ABNORMAL ECG Electronically Signed On 09-26-2020 13:04:35 CDT by Ignacio Claire D.O.
[2020-09-26 12:58] VITALS: BP 147/41; PULSE 82; RESP 18; TEMP 36.8; O2SAT 98
[2020-09-26 15:04] VITALS: BP 161/68; PULSE 79; RESP 24; O2SAT 96
--- NOTE | 2020-09-26 15:21 | ED.GENADULT ---
HPI - General Adult General Chief complaint: Shortness of Breath/Dyspnea <Aung Metz PA-C - Last Filed: 09/26/20 19:49> Stated complaint: SOB <Aung Metz PA-C - Last Filed: 09/26/20 19:49> Time Seen by Provider: 09/26/20 15:18 <Aung Metz PA-C - Last Filed: 09/26/20 19:49> History of Present Illness HPI narrative: Patient is a 69-year-old female with history of chronic respiratory failure on 3 L nasal cannula chronically, COPD, diabetes who comes to the emergency room today complaining of shortness of breath. She is somewhat of a poor historian. Says that the shortness of breath has been present for a while but she came to the emergency room today because it became worse over the last couple days. Shortness of breath is much worse with exertion, patient says that she can barely walk from her room to another without needing to take a break. There is no chest pain. No lower extremity edema. No coughing or fevers. Denies any other symptoms or concerns. <CJ Liu Last Filed: 09/26/20 19:49> Related Data Home medications: Home Medications Medication Instructions Recorded Confirmed Flovent HFA 1 puff INHALATION Q12H 03/14/20 09/26/20 Lantus Solostar U-100 Insulin 55 unit SUBCUT QAM 03/14/20 09/26/20 Lantus Solostar U-100 Insulin 80 unit SUBCUT HS 03/14/20 09/26/20 acetaminophen 325 mg PO Q4-6H PRN 03/14/20 09/26/20 benzonatate 100 mg PO TID 03/14/20 09/26/20 benztropine 1 mg PO BID 03/14/20 09/26/20 cholecalciferol (vitamin D3) 125 mcg PO DAILY 03/14/20 09/26/20 [Vitamin D3] diphenhydramine HCl [Benadryl] 50 mg PO HS PRN 03/14/20 09/26/20 docusate sodium 100 mg PO BID 03/14/20 09/26/20 famotidine [Pepcid] 20 mg PO HS 03/14/20 09/26/20 hydroxyzine pamoate 25 mg PO HS 03/14/20 09/26/20 insulin lispro See Rx Instructions .ROUTE .COMPLEX 03/14/20 09/26/20 ipratropium-albuterol 3 ml INHALATION Q6H PRN 03/14/20 09/26/20 loperamide 2 mg PO Q6H PRN 03/14/20 09/26/20 meclizine 25 mg PO TID PRN 03/14/20 09/26/20 meloxicam 15 mg PO DAILY 03/14/20 09/26/20 montelukast 10 mg PO HS 03/14/20 09/26/20 nifedipine 30 mg PO DAILY 03/14/20 09/26/20 olanzapine 15 mg PO HS 03/14/20 09/26/20 omeprazole 20 mg PO DAILY 03/14/20 09/26/20 potassium chloride 20 meq PO DAILY 03/14/20 09/26/20 pravastatin 40 mg PO HS 03/14/20 09/26/20 risperidone 6 mg PO HS 03/14/20 09/26/20 sodium chloride 1,000 mg PO DAILY 03/14/20 09/26/20 tetrahydrozoline 1 drp EACH EYE BID PRN 03/14/20 09/26/20 aspirin [Adult Aspirin] 81 mg PO DAILY 09/26/20 09/26/20 furosemide 40 mg PO BID 09/26/20 09/26/20 hydrocortisone 2.5 applic TOPICAL BID PRN 09/26/20 09/26/20 lisinopril 5 mg PO DAILY 09/26/20 09/26/20 losartan 100 mg PO DAILY 09/26/20 09/26/20 nystatin [Nystop] 1 applic TOPICAL TID PRN 09/26/20 09/26/20 triamcinolone acetonide 0.1 applic TOPICAL DAILY PRN 09/26/20 09/26/20 <Aung Metz PA-C - Last Filed: 09/26/20 19:49> Allergies/adverse reactions: Allergies Allergy/AdvReac Type Severity Reaction Status Date / Time No Known Allergies Allergy Verified 03/14/20 00:03 <Aung Metz PA-C - Last Filed: 09/26/20 19:49> Review of Systems Constitutional: Constitutional: Reports as per HPI, Denies fever(s), Denies night sweats and Denies weakness <CJ Liu Last Filed: 09/26/20 19:49> Cardiovascular: Cardiovascular: Denies chest pain, Denies edema, Denies leg edema, Denies dyspnea and Denies orthopnea <CJ Liu Last Filed: 09/26/20 19:49> Respiratory: Respiratory: Reports as per HPI, Denies cough and Reports dyspnea <CJ Liu Last Filed: 09/26/20 19:49> Comments: See HPI for shortness of breath. <CJ Liu Last Filed: 09/26/20 19:49> Gastrointestinal: Gastrointestinal: Denies abdominal pain, Denies constipation, Denies diarrhea, Denies nausea and Denies vomiting <CJ Liu Roberto
[2020-09-26 15:27] LABS: Basophils Absolute Auto 0.1 K/mm3 (0.0-0.1); Basophils Percent Auto 0.8 % (0.2-1.2); Eosinophils Absolute Auto 0.5 K/mm3 (0-0.3); Hemoglobin 13.5 g/dL (12.0-15.0); Immature Granulocyte Absolute 0.03 K/mm3 (0.00-0.031); Immature Granulocyte Percent A 0.3 % (0-0.5); Lymphocytes Absolute Auto 2.21 K/mm3 (0.9-3.2); Lymphocytes Percent Auto 24.3 % (18.3-44.2); Mean Corpuscular HGB Conc 29.3 g/dl (32-36); Mean Corpuscular Hemoglobin 25.2 pg (26-34); Mean Corpuscular Volume 85.8 fl (80-100); Monocytes Absolute Auto 0.6 K/mm3 (0.1-0.6); Monocytes Percent Auto 6.6 % (2.6-8.5); Neutrophils Absolute Auto 5.7 K/mm3 (1.3-6.7); Platelet Count Result 237 k/mm3 (150-375); Red Blood Count 5.36 M/mm3 (4.2-5.4); Red Cell Distribution Width 13.4 % (11.5-14.5); White Blood Count 9.1 K/mm3 (4.5-10.0)
[2020-09-26 15:44] LABS: Anion Gap 4 mmol/L (8-16); Blood Urea Nitrogen 19 mg/dL (7-17); Calcium 9.9 mg/dL (8.4-10.2); Carbon Dioxide 39 mmol/L (22-30); Chloride 90 mmol/L (98-107); Estimated CRCL calculation 85 ml/min; Estimated Glomerular Filt Rate > 60; Glucose 241 mg/dL (65-110); Sodium 133 mmol/L (137-145)
[2020-09-26 16:03] LABS: Hypochromasia 1+ (NORMAL); Platelet Estimate Adequate (Adequate)
[2020-09-26 16:51] LABS: Alveolar/Arterial O2 Gradient 19.4 mmHg; Base Excess ABG 8.5 mEq/l (+/-2.0); Fractional Inspired Oxygen 32 %; HCO3 ABG 34.9 mEq/l (22.0-26.0); Oxygen Content ABG 19.3 %vol (16.0-22.0); Oxygen Saturation ABG 98.8 % (95.0-100.0); Oxyhemoglobin 97.5 % THb (90.0-100.0); PCO2 ABG 55.1 mmHg (35.0-45.0); PO2 ABG 144.3 mmHg (80.0-100.0); PO2 FiO2 Ratio Arterial Blood 4.51 %; Total Hemoglobin 13.9 g/dL (12.0-18.0); pH ABG 7.419 (7.350-7.450)
[2020-09-26 16:52] LABS: Device NASAL CANNULA; Modified Allen's Test Pass; Site Drawn RIGHT RADIAL
[2020-09-26 16:55] VITALS: PULSE 68; RESP 20
[2020-09-26] MEDS: ALBUTEROL SULFATE NEB 2.5 MG/3 ML INH 1.25 MG INHALATION (16:55)
[2020-09-26 16:56] LABS: Add Urine Microscopic? YES; Appearance Urine Clear (Clear); Bacteria Urine Trace /hpf; Bilirubin Urine Negative (Negative); Blood Urine Negative (Negative); Color Urine Yellow (Yellow); Glucose Urine UA 2+ mg/dL (Negative); Ketones Urine Negative (Negative); Leukocyte Esterase Ur Negative LEU/UL (Negative); Mucus Urine Rare /lpf; Nitrate Urine Negative (Negative); Protein Urine Negative (Negative); Specific Grav Ur 1.015 (1.001-1.035); Squamous Epithelial Cell Urine Few /hpf (Few); Urobilinogen Urine Negative mg/dL (<2.0); WBC Urine 0-3 /hpf
[2020-09-26 17:04] VITALS: PULSE 75; RESP 20
[2020-09-26 17:16] LABS: NT Pro B Type Natriuretic Pept 23 pg/mL (5-100); Troponin I < 0.012 ng/mL (0.000-0.034)
[2020-09-26 17:27] VITALS: BP 126/86; PULSE 84; RESP 20; O2SAT 97
[2020-09-26] MEDS: methylPREDNISolone SOD SUCC 40 MG VIAL IV PUSH ×2 (19:06→23:48)
[2020-09-26 20:06] LABS: EDCOVIDSCREEN Negative (Negative)
--- NOTE | 2020-09-26 20:40 | PM.IMHP ---
H&P: HPI History of Present Illness Date/Time: 09/26/20 20:40 Chief Complaint: Shortness of breath Narrative: This is a 69-year-old female with past medical history significant for COPD/emphysema, bipolar disorder, dyslipidemia, hypertension, type 2 diabetes mellitus insulin dependent, on supplemental home oxygen 3 L, GERD. Patient presented to the emergency room due to worsening shortness of breath for a week or so but worse in the last couple of days cough productive of clear phlegm. Shortness of breath is worse at exertion even when walking short distances within the house has to stop to take a break. She denies any fevers rigors or chills, no nausea no vomiting no abdominal pain no diarrhea, no leg swelling. Preliminary workup was significant for infiltrates present on CT PE protocol which was negative for acute PE. In emergency room patient got nebulizer treatment and states that she feels much better. Review of Systems Review of Systems: Worsening shortness of breath productive cough of clear phlegm Constitutional: Constitutional: Denies chills, Denies fatigue, Denies fever(s), Denies poor appetite and Denies weakness Eyes: Eyes: Denies change in vision ENT: Denies dysphagia, Denies nasal congestion, Denies nasal discharge, Denies nasal obstruction and Denies odynophagia Cardiovascular: Cardiovascular: Denies chest pain, Denies irregular heart rhythm, Denies claudication, Denies lightheadedness, Denies radiating jaw, neck or arm pain and Denies palpitations Respiratory: Respiratory: Denies change in phlegm color, Reports cough, Reports excessive phlegm production and Reports dyspnea Gastrointestinal: Gastrointestinal: Denies abdominal pain, Denies diarrhea, Denies nausea and Denies vomiting Genitourinary: Genitourinary: Reports no additional female genitourinary complaints Musculoskeletal: Musculoskeletal: Reports no additional musculoskeletal complaints Integumentary/Breasts: Skin/Breast: Reports system reviewed and no additional complaints, except as docu Neurologic: Reports system reviewed and no additional complaints, except as documented Psychiatric: Psychiatric: Reports no additional psychiatric complaints Endocrine: Endocrine: Reports no additional endocrine complaints Hematologic/Lymphatic: Hematologic/Lymphatic: Reports no additional hematologic/lymphatic complaints Allergic/Immunologic: Allergic/Immunologic: Reports no additional allergic/immunologic complaints PMFSH Past Medical History Medical History (Updated 09/26/20 @ 22:24 by Isis Cristobal MD) Asthma Back pain Diabetes GERD (gastroesophageal reflux disease) Hyperlipemia Hypertension Rash of both hands Burning macular rash of both hands and forearms. Not responding to usual treatment. Distribution suggests contact by normal daily activities such as hand washing. Schizophrenia Type 1 diabetes mellitus without complications Surgical History Surgical History History of cholecystectomy Family History Family History Mother , Patient states she diet pneumonia, unknown other family history including children. No problems noted. Social History Social History Social History: Patient does not smoke or drink. She would like to be a full code. She is a long-term resident of [facility] Smoking status: Former smoker Alcohol intake: former Substance use: never Substance use type: does not use Gender identity (if verbalized by the patient): Female Spiritual care concerns: No Meds Home Medications and Allergies Home Medications Medication Instructions Recorded Confirmed Type Flovent HFA 1 puff INHALATION Q12H 03/14/20 05/11/20 History Lantus Solostar U-100 Insulin 55 unit SUBCUT QAM 03/14/20 05/11/20 History Lantus Solo
--- NOTE | 2020-09-26 22:02 | ADMGEN ---
This patient, Nona Florez, was admitted to [facility] Surg Room 310-01. Patient/family oriented to hospital policies and general routines including ID bracelet, bed and alarms, visiting hours, pain management, procedures, bathroom and other care routines, personal items, smoking policy, room service/diet, and visiting hours. Information on how to activate the Rapid Response Team has been discussed. Patient/Family are encouraged to report perceived risks to care and to ask questions if they do not understand what they are told or what they should do.
[2020-09-26 23:06] VITALS: PULSE 92; RESP 20
[2020-09-26] MEDS: IPRATROPIUM BR 0.02% INH SOLN 0.5 MG/2.5 ML VIAL 1.5 MG INHALATION (23:06)
[2020-09-27] VITALS (11 sets, daily range): BP systolic 124–140; BP diastolic 49–68; PULSE 61–91; RESP 14–24; TEMP 36.1–36.8; O2SAT 91–97
[2020-09-27 01:23] LABS: Glucose Point of Care 213 mg/dl (65-105)
[2020-09-27] MEDS: ACETAMINOPHEN 325 MG TABLET PO (03:31)
[2020-09-27] MEDS: methylPREDNISolone SOD SUCC 40 MG VIAL IV PUSH ×3 (05:33→17:34)
[2020-09-27] MEDS: ALBUTEROL SULFATE NEB 2.5 MG/0.5 ML INH INHALATION ×3 (08:43→21:47)
[2020-09-27] MEDS: IPRATROPIUM BR 0.02% INH SOLN 0.5 MG/2.5 ML VIAL INHALATION ×3 (08:44→21:47)
[2020-09-27 08:59] LABS: Glucose Point of Care 292 mg/dl (65-105)
[2020-09-27] MEDS: DOCUSATE SODIUM 100 MG CAPSULE PO ×2 (09:20→16:05)
[2020-09-27] MEDS: INSULIN ASPART (*BKC) 100 UNITS/ML SUB-Q ×3 (09:55→17:32)
[2020-09-27] MEDS: BENZTROPINE MESYLATE 1 MG TABLET PO ×2 (09:56→16:06)
[2020-09-27] MEDS: CHOLECALCIFEROL 1,000 UNITS TABLET 5000 UNITS PO (09:56)
[2020-09-27] MEDS: INSULIN GLARGINE (*BKC) 100 UNITS/ML 45 UNITS SUB-Q (09:57)
[2020-09-27] MEDS: BENZONATATE 100 MG CAPSULE PO ×3 (09:59→16:05)
[2020-09-27] MEDS: ASPIRIN 81 MG CHEWABLE TABLET PO (09:59)
[2020-09-27] MEDS: NIFEdipine 30 MG TAB.ER.24 PO (09:59)
[2020-09-27] MEDS: MELOXICAM 7.5 MG TABLET 15 MG PO (09:59)
[2020-09-27] MEDS: FUROSEMIDE 40 MG TABLET PO ×2 (10:00→16:05)
[2020-09-27] MEDS: POTASSIUM CHLORIDE 20 MEQ TABLET.ER PO (10:00)
[2020-09-27] MEDS: lisinopriL 5 MG TABLET PO (10:00)
[2020-09-27] MEDS: SODIUM CHLORIDE 1 GM TABLET PO (10:00)
[2020-09-27] MEDS: PANTOPRAZOLE 40 MG TABLET PO (10:00)
[2020-09-27] MEDS: LOSARTAN POTASSIUM 100 MG TABLET PO (10:00)
--- NOTE | 2020-09-27 12:37 | PM.IMPN ---
Progress Note: A&P Assessment and Plan (1) Pneumonia: Code(s): J18.9 - Pneumonia, unspecified organism Status: Acute Assessment and Plan: Patient with any shortness of breath over the last 3 days and CTA of her chest showing patchy bilateral groundglass infiltrates which may be secondary to mild pneumonitis or small airways disease. She had a rapid COVID swab in the emergency room which was negative. The patient does states she was vaccinated for COVID since he lives in a living facility. Concerned could be caused from aspiration. Will order a bedside swallow evaluation from speech therapy. Will continue Levaquin that was started by the admitting provider and had metronidazole for aspiration coverage. Will order aspiration precautions Will obtain sputum culture Blood cultures pending Breathing treatments will be switched from p.r.n. to every 6 hours. P.r.n. Tessalon Perles for cough. Continue monitoring respiratory symptoms and status. Currently she is 91% on her home 3 L. (2) COPD exacerbation: Code(s): J44.1 - Chronic obstructive pulmonary disease with (acute) exacerbation Status: Acute Assessment and Plan: She was placed on IV Solu-Medrol from the emergency room 40 mg q.6 hours. Will wean as tolerated Continue DuoNeb treatments. Continue monitoring respiratory status. Consider pulmonology consultation if she has no improvement with therapy. (3) GERD (gastroesophageal reflux disease): Code(s): K21.9 - Gastro-esophageal reflux disease without esophagitis Status: Acute Assessment and Plan: Continue pantoprazole (4) Diabetes: Code(s): E11.9 - Type 2 diabetes mellitus without complications Status: Acute Assessment and Plan: Will continue patient's Lantus twice daily and sliding scale insulin with meals. Will decrease them slightly due to hospitalization and controlling her diet. Continue Accu-Cheks AC and HS. Sliding scale insulin ordered. Hypoglycemic protocol in place. (5) Hypertension: Code(s): I10 - Essential (primary) hypertension Status: Acute Assessment and Plan: Blood pressure this morning was 136/49. Stable Continue home meds. Continue to monitor Time Spent With Patient Time with patient: 25 - 35 minutes Subjective Date/time seen: 09/27/20 12:37 Interval history: Date of service 09/27/2020: Patient reports not much change her breathing since arrival. She reports not sleeping well last night because she was up coughing. She denies any productive miss to her cough, but does feel like she has slight chest congestion. She denies any fevers, chills. Patient reported having loose stools 1 last night and this morning and she received Imodium for this this morning. She does report a little more abdominal distension She denies any chest pain, nausea, vomiting, abdominal pain, leg swelling, calf pain, any other symptoms at this time. Review of Systems Review of Systems: All systems reviewed & are unremarkable except as noted in HPI and below Exam Narrative: General: 69-year-old woman laying flat in bed with elevation at 30 degrees. Appears slightly dyspnic with conversation, able to talk in 3-4 word sentences. Otherwise comfortable. In no acute respiratory distress. Skin: No jaundice or cyanosis. Good skin turgor. Neck: Full range of motion. Supple. Respiratory: Decrease breath sounds to bilateral lung ward. Little air movement noted. No significant wheezing, rales or rhonchi auscultated. No bony chest wall tenderness. Cardiovascular: The heart has a regular rate and rhythm without murmur. Lower extremities: No lower extremity edema. Distal pulses are easily palpate
[2020-09-27 12:41] LABS: Glucose Point of Care 367 mg/dl (65-105)
[2020-09-27 13:41] LABS: Anion Gap 7 mmol/L (8-16); Blood Urea Nitrogen 21 mg/dL (7-17); Calcium 10.2 mg/dL (8.4-10.2); Carbon Dioxide 35 mmol/L (22-30); Chloride 93 mmol/L (98-107); Estimated CRCL calculation 74 ml/min; Estimated Glomerular Filt Rate > 60; Glucose 330 mg/dL (65-110); Potassium 4.5 mmol/L (3.4-5.0); Sodium 135 mmol/L (137-145)
--- NOTE | 2020-09-27 14:52 | PCSTNOTE ---
Please refer to the Bedside Swallow Evaluation in the EMR. Please note, silent aspiration cannot be ruled out at bedside.
[2020-09-27] MEDS: metroNIDAZOLE 500 MG/ISO 100ML 500 MG/100 ML BAG 100 MG IVPB ×2 (16:00→18:32)
[2020-09-27] MEDS: ENOXAPARIN 40 MG/0.4 ML SYRINGE SUB-Q (16:00)
[2020-09-27 17:29] LABS: Glucose Point of Care 261 mg/dl (65-105)
[2020-09-27] MEDS: risperiDONE 1 MG TABLET 6 MG PO (20:37)
[2020-09-27] MEDS: MONTELUKAST SODIUM 10 MG TABLET PO (20:38)
[2020-09-27] MEDS: OLANZapine 5 MG TABLET 15 MG PO (20:38)
[2020-09-27] MEDS: PRAVASTATIN SODIUM 20 MG TABLET 40 MG PO (20:38)
[2020-09-27] MEDS: FAMOTIDINE 20 MG TABLET PO (20:38)
[2020-09-27] MEDS: hydrOXYzine pamoate 25 MG CAPSULE PO (20:38)
[2020-09-27] MEDS: INSULIN GLARGINE (*BKC) 100 UNITS/ML 80 UNITS SUB-Q (20:46)
[2020-09-27] MEDS: FLUTICASONE PROP 220 MCG (*SP) 12 GM INHALER 1 PUFF INHALATION ×2 (21:30→21:47)
[2020-09-27 21:38] LABS: Glucose Point of Care 253 mg/dl (65-105)
[2020-09-28] VITALS (15 sets, daily range): BP systolic 121–135; BP diastolic 47–61; PULSE 68–88; RESP 14–22; TEMP 36.8–37.1; O2SAT 95–97
[2020-09-28] MEDS: methylPREDNISolone SOD SUCC 40 MG VIAL IV PUSH ×2 (00:40→11:47)
[2020-09-28] MEDS: metroNIDAZOLE 500 MG/ISO 100ML 500 MG/100 ML BAG 100 MG IVPB ×3 (00:41→17:00)
[2020-09-28] MEDS: ALBUTEROL SULFATE NEB 2.5 MG/0.5 ML INH INHALATION ×2 (02:12→08:51)
[2020-09-28] MEDS: IPRATROPIUM BR 0.02% INH SOLN 0.5 MG/2.5 ML VIAL INHALATION ×4 (02:12→20:08)
[2020-09-28 06:53] LABS: Hematocrit 39.9 % (37.0-47.0); Mean Corpuscular HGB Conc 30.1 g/dl (32-36); Mean Corpuscular Volume 83.1 fl (80-100); Mean Platelet Volume 10.4 fl (7.4-10.4); Platelet Count Result 256 k/mm3 (150-375); Red Cell Distribution Width 13.2 % (11.5-14.5); White Blood Count 8.3 K/mm3 (4.5-10.0)
[2020-09-28 07:08] LABS: Anion Gap 10 mmol/L (8-16); Blood Urea Nitrogen 29 mg/dL (7-17); Calcium 9.9 mg/dL (8.4-10.2); Carbon Dioxide 31 mmol/L (22-30); Chloride 90 mmol/L (98-107); Estimated CRCL calculation 74 ml/min; Estimated Glomerular Filt Rate > 60; Glucose 361 mg/dL (65-110); Potassium 4.4 mmol/L (3.4-5.0); Sodium 131 mmol/L (137-145)
[2020-09-28 08:16] LABS: Glucose Point of Care 363 mg/dl (65-105)
[2020-09-28] MEDS: CHOLECALCIFEROL 1,000 UNITS TABLET 5000 UNITS PO (08:49)
[2020-09-28] MEDS: BENZONATATE 100 MG CAPSULE PO ×3 (08:50→16:51)
[2020-09-28] MEDS: POTASSIUM CHLORIDE 20 MEQ TABLET.ER PO (08:50)
[2020-09-28] MEDS: MELOXICAM 7.5 MG TABLET 15 MG PO (08:50)
[2020-09-28] MEDS: BENZTROPINE MESYLATE 1 MG TABLET PO ×2 (08:50→16:52)
[2020-09-28] MEDS: ASPIRIN 81 MG CHEWABLE TABLET PO (08:51)
[2020-09-28] MEDS: lisinopriL 5 MG TABLET PO (08:51)
[2020-09-28] MEDS: NIFEdipine 30 MG TAB.ER.24 PO (08:51)
[2020-09-28] MEDS: PANTOPRAZOLE 40 MG TABLET PO (08:51)
[2020-09-28] MEDS: SODIUM CHLORIDE 1 GM TABLET PO (08:51)
[2020-09-28] MEDS: FLUTICASONE PROP 220 MCG (*SP) 12 GM INHALER 1 PUFF INHALATION (08:51)
[2020-09-28] MEDS: LOSARTAN POTASSIUM 100 MG TABLET PO (08:51)
[2020-09-28] MEDS: ENOXAPARIN 40 MG/0.4 ML SYRINGE SUB-Q (08:52)
[2020-09-28] MEDS: INSULIN ASPART (*BKC) 100 UNITS/ML SUB-Q ×2 (08:52→11:42)
[2020-09-28] MEDS: FUROSEMIDE 40 MG TABLET PO ×2 (08:52→16:53)
[2020-09-28] MEDS: DOCUSATE SODIUM 100 MG CAPSULE PO (08:52)
[2020-09-28] MEDS: INSULIN GLARGINE (*BKC) 100 UNITS/ML 55 UNITS SUB-Q (08:54)
--- NOTE | 2020-09-28 10:12 | ECG_ITS ---
Measurements Intervals [place] Rate: 153 P: [place]: 0 QRS: -42 QRSD: 86 T: 59 QT: 255 QTc: 408 Interpretive Statements ATRIAL FIBRILLATION WITH RAPID VENTRICULAR RESPONSE CONSIDER INFERIOR INFARCT, AGE INDETERMINATE ANTEROSEPTAL INFARCT, AGE INDETERMINATE BASELINE ARTIFACT- I, III, AVL ABNORMAL ECG Electronically Signed On 09-28-2020 16:10:49 CDT by Ignacio Claire D.O.
--- NOTE | 2020-09-28 10:15 | PM.IMPN ---
Progress Note: A&P Assessment and Plan (1) Atrial fibrillation with RVR: Code(s): I48.91 - Unspecified atrial fibrillation Status: Acute Assessment and Plan: Due to the patient's shortness of breath and chest pain I ordered a stat EKG, troponin, chest x-ray, ABG. EKG showed atrial fibrillation with RVR with heart rate 153 beats per minute. By the time the placed was placed on telemetry she had converted back into normal sinus rhythm with few PVCs and PACs with a normal heart rate. She did not receive any intervention before she had converted. Repeat EKG showed normal sinus rhythm with HR 90 bpm with few PAC. I consult cardiology for further evaluation and monitoring. I talked to Dr. Charla Ray who will come see the patient. Continue Tele. Appreciate cardiology input. (2) Chest pain: Code(s): R07.9 - Chest pain, unspecified Status: Acute Assessment and Plan: Patient reported chest pain which is tender to palpation. Will give Tylenol as needed for chest pain Could be from atrial fibrillation with RVR CXR showed Cardiomegaly, pulmonary vascular redistribution, mild prominence of minor fissure; these findings may be consistent with mild congestive heart failure Mild atelectasis in the lower lung zones Troponin was normal. Continue monitoring. Appreciate cardiology's input. (3) Pneumonia: Code(s): J18.9 - Pneumonia, unspecified organism Status: Acute Assessment and Plan: Patient with any shortness of breath over the last 3 days and CTA of her chest showing patchy bilateral groundglass infiltrates which may be secondary to mild pneumonitis or small airways disease. She had a rapid COVID swab in the emergency room which was negative. The patient does states she was vaccinated for COVID since he lives in a living facility. Concerned could be caused from aspiration, but bedside swallow evaluation from speech therapy was normal Continue Levaquin that was started by the admitting provider and had metronidazole (#2) for aspiration coverage. Will order aspiration precautions Will obtain sputum culture not completed. Blood cultures were never completed. Breathing treatments will be switched from p.r.n. to every 6 hours. P.r.n. Tessalon Perles for cough. Continue monitoring respiratory symptoms and status. Currently she is 91% on her home 3 L. (4) COPD exacerbation: Code(s): J44.1 - Chronic obstructive pulmonary disease with (acute) exacerbation Status: Acute Assessment and Plan: She was placed on IV Solu-Medrol from the emergency room 40 mg q.6 hours. Will wean as tolerated Continue DuoNeb treatments. Continue monitoring respiratory status. Consider pulmonology consultation if she has no improvement with therapy. (5) GERD (gastroesophageal reflux disease): Code(s): K21.9 - Gastro-esophageal reflux disease without esophagitis Status: Acute Assessment and Plan: Continue pantoprazole (6) Diabetes: Code(s): E11.9 - Type 2 diabetes mellitus without complications Status: Acute Assessment and Plan: Will continue patient's Lantus twice daily and sliding scale insulin with meals. Will decrease them slightly due to hospitalization and controlling her diet. Elevated glucose from IV Solu-medrol. She is on Home Insulin a this time. Solu-medrol was stopped and now started on oral prednisone. Continue Accu-Cheks AC and HS. Sliding scale insulin ordered. Hypoglycemic protocol in place. (7) Hypertension: Code(s): I10 - Essential (primary) hypertension Status: Acute Assessment and Plan: Blood pressure this morning was 1
[2020-09-28 10:49] LABS: Alveolar/Arterial O2 Gradient 97.2 mmHg; Base Excess ABG 4.4 mEq/l (+/-2.0); Carboxyhemoglobin 0.3 % THb (0-2.0); Fractional Inspired Oxygen 32 %; HCO3 ABG 30.4 mEq/l (22.0-26.0); Methemoglobin ABG 0.4 %THb (0-1.5); Oxygen Content ABG 17.8 %vol (16.0-22.0); Oxyhemoglobin 93.1 % THb (90.0-100.0); PCO2 ABG 51.1 mmHg (35.0-45.0); PO2 ABG 71.2 mmHg (80.0-100.0); PO2 FiO2 Ratio Arterial Blood 2.22 %; Reduced Hemoglobin 6.2 %THb (0-5.0); Total Hemoglobin 13.6 g/dL (12.0-18.0); pH ABG 7.393 (7.350-7.450)
[2020-09-28 10:50] LABS: Device NASAL CANNULA; Site Drawn LEFT BRACHIAL
[2020-09-28 10:58] LABS: Troponin I < 0.012 ng/mL (0.000-0.034)
--- NOTE | 2020-09-28 11:02 | ECG_ITS ---
Measurements Intervals [place] Rate: 90 P: 50 NV: 169 QRS: -37 QRSD: 89 T: 19 QT: 340 QTc: 416 Interpretive Statements SINUS RHYTHM SUPRAVENTRICULAR TRIGEMINY POOR R WAVE PROGRESSION, ANTERIOR LEADS INFERIOR INFARCT, AGE INDETERMINATE BASELINE WANDER- I, III, AVL ABNORMAL ECG Electronically Signed On 09-28-2020 16:11:48 CDT by Ignacio Claire D.O.
[2020-09-28 11:36] LABS: Glucose Point of Care 369 mg/dl (65-105)
[2020-09-28] MEDS: ACETAMINOPHEN 325 MG TABLET 650 MG PO (11:40)
--- NOTE | 2020-09-28 12:25 | PM.CNPUL ---
Assessment and Plan Assessment and plan (1) Shortness of breath: Code(s): R06.02 - Shortness of breath Status: Acute Assessment and Plan: Patient's complaint is shortness of breath and this is been going on for years and worse over the last 2 weeks. Patient carries a history of hypoxemic respiratory [facility] Patient also carries a history of COPD and asthma which are both written in the chart. Patient denies having COPD or asthma or ever been told she has COPD or asthma to me today. She has a minimal smoking history of 3 pack years with secondhand exposure from her father and from a live-in partner for 10 years up until 20 years ago and none in the last 20 years. etiology of patient's shortness of breath includes asthma exacerbation, pneumonia, Afib/RVR, fluid overload on todays CXR, COPD morbid obesity. I am not convinced she has COPD as there are no emphysematous changes on her CT scan of the chest. I have no PFTs at this time. asthma has been written in the chart and she does have 5% eosinophils on presentation with a total eosinophil count of 455 per micro L. At this time I will change her Solu-Medrol (started 09/26) to prednisone 40 mg p.o. q.day and continue her ipratropium nebulizers at 0.5 mg nebs q.6 hours. Given that she has a tachyarrhythmia will discontinue all beta agonist. Will DC flovent as on systemic steroids. She has diffuse ground-glass infiltrates throughout her chest on CT scan from 09/26/2020 with no white blood cell count and no fevers, cough and minimal phlegm production. Possible pneumonia, COVDI negative and no cultures obtained. Patient is currently on Levaquin and Flagyl at this time (antibiotics started 09/26) and will add back ceftriaixone. ABG performed today demonstrates a pH of 7.39/51/71 on 3 L nasal cannula. There is mild chronic hypercarbic respiratory failure from COPD or obesity hypoventilation syndrome but at this time she would not qualify for or BiPAP or noninvasive ventilation. Patient carries a diagnosis of obstructive sleep apnea and was prescribed CPAP in the past. I have no records supporting this and patient does not know where she had her sleep study. She will need an outpatient sleep study. Discussed wtjulia Whittington, will follow with you. History of Present Illness History of Present Illness Consult date: 09/28/20 Reason for consult: dyspnea Chief complaint: SOB Narrative: 09/28/2020 this is a new Pulmonary consult for shortness of breath 69-year-old woman with a history of schizophrenia, bipolar, hypertension, diabetes, asthma, COPD on 3L NC, obstructive sleep apnea prescribed CPAP in the past but not using it now presented to the hospital for shortness of breath. patient is unable to verify her past medical history and she tells me no one has ever told her she has had asthma or COPD. Patient did tell me she did a sleep study in the past and that she was prescribed a CPAP mask. She does not know where this study was performed but stated that she only wear the mask for few weeks and then she was told that she should just wear oxygen. Patient does not know who told her this. 09/26/20 Presented to the ER with shortness of breath. Patient has had shortness of breath for many years but states that it has been worse over the last 2 weeks. Patient denies any fever, chills, rigors, phlegm production or hemoptysis. Patient does states she has a dry cough that occurs maybe once an hour in the morning. Patient presented to the emergency department on 09/26 with shortness of breath, and was found to have wheezing on exam. Her white blood cell count was 9.1K, blood gas on 3 L nasal cannula was 7.42/55 / 144. she was COVID negative by rapid test. Her CT angiogram showed no PE but diffuse ground-glass infiltrates and she was given ceftriaxone and azithromycin in the emergency department and admitted to the floor. Ish
[2020-09-28] MEDS: predniSONE 20 MG TABLET 40 MG PO (15:13)
[2020-09-28 16:56] LABS: Glucose Point of Care 187 mg/dl (65-105)
[2020-09-28] MEDS: risperiDONE 1 MG TABLET 6 MG PO (20:43)
[2020-09-28] MEDS: FAMOTIDINE 20 MG TABLET PO (20:44)
[2020-09-28] MEDS: APIXABAN 5 MG TABLET PO (20:45)
[2020-09-28] MEDS: hydrOXYzine pamoate 25 MG CAPSULE PO (20:47)
[2020-09-28] MEDS: INSULIN GLARGINE (*BKC) 100 UNITS/ML 80 UNITS SUB-Q (20:47)
[2020-09-28] MEDS: PRAVASTATIN SODIUM 20 MG TABLET 40 MG PO (20:48)
[2020-09-28] MEDS: MONTELUKAST SODIUM 10 MG TABLET PO (20:48)
[2020-09-28] MEDS: OLANZapine 5 MG TABLET 15 MG PO (20:48)
[2020-09-28 21:35] LABS: Glucose Point of Care 239 mg/dl (65-105)
[2020-09-29] VITALS (20 sets, daily range): BP systolic 107–123; BP diastolic 63–84; PULSE 62–92; RESP 14–24; TEMP 36.3–36.7; O2SAT 85–100
--- NOTE | 2020-09-29 | ECHO_ITS ---
Patient Info Name: Nona Florez Age: 69 years : 1950 Gender: Female Ht: 61 in Wt: 219 lbs BSA: 2.12 m2 HR: 74 bpm BP: 123 / 63 mmHg Heart Rhythm: Sinus Rhythm Technical Quality: Poor Exam Date: 09/29/2020 8:08 AM Exam Location: [facility] Pulmonary Patient Status: Inpatient Admit Date: 09/28/2020 Staff Ordering Physician: Roberto Edward MD [place]er Pick: Jagruti Morillo RDCS Attending Provider: Nelsy Joseph PA-C Exam Type: CA echo dop color flow w con Study Info Indications I48.1 - Persistent atrial fibrillation R06.02 - Shortness of breath Complete two-dimensional, color flow and Doppler transthoracic echocardiogram is performed with contrast to opacify the left ventricle and to improve the deliniation of the left ventricle endocardial borders. Contrast/Agitated Saline Contrast/Ag. Saline: Definity Amount: 4.00 ml Reason for Poor Study: patient body habitus Summary 1. Left ventricular chamber dimension is normal. 2. Left ventricular systolic function is normal, estimated at 55-60%. 3. Right ventricular chamber dimension is normal. 4. Normal atrial dimension. 5. No valvular abnormalities. Left Ventricle Left ventricular chamber dimension is normal. Left ventricular systolic function is normal, estimated at 55-60%. The left ventricular diastolic function is normal. Right Ventricle Right ventricular chamber dimension is normal. Left Atria Left atrial chamber dimension is normal. Right Atria Right atrial chamber dimension is normal. Aortic Valve The aortic valve is normal. Pulmonic Valve The pulmonic valve is not well visualized. Mitral Valve The mitral valve has normal leaflets. Tricuspid Valve The tricuspid valve leaflets are not well visualized. Pericardium/Pleural The pericardium appears normal. Aorta The aortic root size at the sinus of Valsalva is normal. Left Ventricular Outflow Tract Name Value Normal LVOT 2D LVOT Diameter 1.96 cm LVOT Doppler LVOT Peak Gradient 2 mmHg LVOT Mean Gradient 1 mmHg LVOT VTI 17.96 cm LVOT VTI/AV VTI Ratio 0.92 LVOT Stroke Volume 54.37 ml LVOT CO 3.09 l/min LVOT CI 1.46 L/min/m2 Pulmonic Valve Name Value Normal PV Doppler PV Peak Gradient 5 mmHg Mitral Valve Name Value Normal MV Doppler MV Decel Mckenzie 849.68 cm/s2 M
[2020-09-29] MEDS: metroNIDAZOLE 500 MG/ISO 100ML 500 MG/100 ML BAG 100 MG IVPB ×4 (01:20→17:14)
[2020-09-29] MEDS: IPRATROPIUM BR 0.02% INH SOLN 0.5 MG/2.5 ML VIAL INHALATION ×4 (02:15→20:52)
[2020-09-29] MEDS: ACETAMINOPHEN 325 MG TABLET 650 MG PO (03:27)
--- NOTE | 2020-09-29 07:21 | PM.CNCAR ---
Assessment and Plan Additional Plan paroxysmal AF, patient may have similar episodes in past, it could have been triggered by current medical illness or therapy including nebulized therapy, morbid obesity, [id number] score 4, HTN, DM, plan start oral anticoagulation and observe in tele, may consider event monitor on D/C to assess AF burden, TTE, stop ASA since started on OAC, don't see reason for having ARB and ACEI at same time, cont oral lasix and CCB History of Present Illness History of Present Illness Consult date/time: 09/29/20 07:21 Consult reason: atrial fibrillation Reason For Visit: SOB Narrative: Patient presented to hospital with progressive SOB for last 2 week and has been SOB with mild activity and sometimes while at rest in bed, associated with cough that is dry. She had no chest pain or palpitations on admission. Her SOB has been chronic symptom for her. She had no fever, cough or exposure to infected personnel. She was admitted with Dx of COPD exacerbation and had partial improvement in her symptoms with nebulizer therapy, however yesterday she developed feeling of palpitations that was mild and noted to have AF with RVR on Tele. HR was upto 150 bpm. This lasted for 30 to 45 min and resolved spontaneously. She doesn't recall similar symptoms but not sure. Review of Systems Review of Systems: All systems reviewed & are unremarkable except as noted in HPI and below PMFSH Past Medical History Medical History (Updated 09/28/20 @ 13:20 by Nelsy Joseph PA-C) Asthma Back pain Diabetes GERD (gastroesophageal reflux disease) Hyperlipemia Hypertension Rash of both hands Burning macular rash of both hands and forearms. Not responding to usual treatment. Distribution suggests contact by normal daily activities such as hand washing. Schizophrenia Type 1 diabetes mellitus without complications Surgical History Surgical History History of cholecystectomy Family History Family History Mother , Patient states she diet pneumonia, unknown other family history including children. No problems noted. Social History Social History Social History: Patient does not smoke or drink. She would like to be a full code. She is a long-term resident of [facility] Smoking status: Former smoker Alcohol intake: former Substance use: never Substance use type: does not use Gender identity (if verbalized by the patient): Female Spiritual care concerns: No Meds Home Medications and Allergies Home Medications Medication Instructions Recorded Confirmed Type Flovent HFA 1 puff INHALATION Q12H 03/14/20 09/26/20 History Lantus Solostar U-100 Insulin 55 unit SUBCUT QA 03/14/20 09/26/20 History Lantus Solostar U-100 Insulin 80 unit SUBCUT HS 03/14/20 09/26/20 History acetaminophen 325 mg PO Q4-6H PRN 03/14/20 09/26/20 History benzonatate 100 mg PO TID 03/14/20 09/26/20 History benztropine 1 mg PO BID 03/14/20 09/26/20 History cholecalciferol (vitamin D3) 125 mcg PO DAILY 03/14/20 09/26/20 History [Vitamin D3] diphenhydramine HCl [Benadryl] 50 mg PO HS PRN 03/14/20 09/26/20 History docusate sodium 100 mg PO BID 03/14/20 09/26/20 History famotidine [Pepcid] 20 mg PO HS 03/14/20 09/26/20 History hydroxyzine pamoate 25 mg PO HS 03/14/20 09/26/20 History insulin lispro See Rx Instructions .ROUTE .COMPLEX 03/14/20 09/26/20 History ipratropium-albuterol 3 ml INHALATION Q6H PRN 03/14/20 09/26/20 History loperamide 2 mg PO Q6H PRN 03/14/20 09/26/20 History meclizine 25 mg PO TID PRN 03/14/20 09/26/20 History meloxicam 15 mg PO DAILY 03/14/20 09/26/20 History montelukast 10 mg PO HS 03/14/20 09/26/20 History nifedipine 30 mg PO DAILY 03/14/20 09/26/20 History olanzapine 15 mg PO HS 03/14/20 09/26/20 History omeprazole 20 mg
[2020-09-29 07:43] LABS: Hematocrit 42.3 % (37.0-47.0); Hemoglobin 12.5 g/dL (12.0-15.0); Mean Corpuscular HGB Conc 29.6 g/dl (32-36); Mean Corpuscular Volume 84.4 fl (80-100); Mean Platelet Volume 10.2 fl (7.4-10.4); Platelet Count Result 227 k/mm3 (150-375); Red Blood Count 5.01 M/mm3 (4.2-5.4); Red Cell Distribution Width 13.5 % (11.5-14.5); White Blood Count 9.8 K/mm3 (4.5-10.0)
[2020-09-29 08:09] LABS: Anion Gap 5 mmol/L (8-16); Blood Urea Nitrogen 35 mg/dL (7-17); Calcium 9.9 mg/dL (8.4-10.2); Carbon Dioxide 34 mmol/L (22-30); Chloride 92 mmol/L (98-107); Estimated CRCL calculation 74 ml/min; Estimated Glomerular Filt Rate > 60; Glucose 241 mg/dL (65-110); Potassium 4.1 mmol/L (3.4-5.0); Sodium 131 mmol/L (137-145)
--- NOTE | 2020-09-29 08:23 | PM.PNPUL ---
Progress Note: A&P Assessment and Plan (1) Shortness of breath: Code(s): R06.02 - Shortness of breath Status: Acute Assessment and Plan: 09/28 Patient's complaint is shortness of breath and this is been going on for years and worse over the last 2 weeks. Patient carries a history of hypoxemic respiratory failure on 3 L nasal cannula at the care home. Patient also carries a history of COPD and asthma which are both written in the chart. Patient denies having COPD or asthma or never been told she has COPD or asthma. She has a minimal smoking history of 3 pack years (quit at age 20) with secondhand exposure from her father and from a live-in partner for 10 years up until 20 years ago and none in the last 20 years. She tells me she had no asthma like symptoms as a child and only started having shortness of breath over the last few years. etiology of patient's shortness of breath includes asthma exacerbation, pneumonia, Afib/RVR, fluid overload on todays CXR, COPD morbid obesity. I am not convinced she has COPD as there are no emphysematous changes on her CT scan of the chest. I have no PFTs at this time. asthma has been written in the chart and she does have 5% eosinophils on presentation with a total eosinophil count of 455 per micro L. At this time I will change her Solu-Medrol (started 09/26) to prednisone 40 mg p.o. q.day and continue her ipratropium nebulizers at 0.5 mg nebs q.6 hours. Given that she has a tachyarrhythmia will discontinue all beta agonist. Will DC flovent as on systemic steroids. She has diffuse ground-glass infiltrates throughout her chest on CT scan from 09/26/2020 with no white blood cell count and no fevers, cough and minimal phlegm production. Possible pneumonia, COVDI negative and no cultures obtained. Patient is currently on Levaquin and Flagyl at this time (antibiotics started 09/26) and will add back ceftriaixone. ABG performed today demonstrates a pH of 7.39/51/71 on 3 L nasal cannula. There is mild chronic hypercarbic respiratory failure from COPD or obesity hypoventilation syndrome but at this time she would not qualify for or BiPAP or noninvasive ventilation. Patient carries a diagnosis of obstructive sleep apnea and was prescribed CPAP in the past. I have no records supporting this and patient does not know where she had her sleep study. She will need an outpatient sleep study. 09/29 patient states that she is breathing little bit better. She states that she still has dyspnea on exertion and mild shortness of breath at rest. Current saturations on 3 L were 100%. I placed her on room air and her saturations were 94%. No wheezes on exam. she is on day 4 antibiotics, will check a chest x-ray in the morning and if she is clinically stable will consider deescalation of antibiotics on 09/30. Today is day 4 of systemic steroids and patient has no wheezing today. Will add moderate dose ICS with fluticasone propionate 110 mcg at 2 puffs q.12 hours in anticipation of discontinuing systemic steroids on 09/30. Continue ipratropium 0.5 mg nebs q.6 hours and avoid beta agonists as has tachyarrhythmia this admission. Patient was apparently on 3 L nasal nasal cannula 247 at the care home and currently is on room air with sats 94%. I will obtain an overnight oximetry on room air to assess her oxygen needs at night. She will ultimately need an outpatient sleep study to assess for obstructive sleep apnea. Will follow with you. Subjective Date/time seen: 09/29/20 08:23 Interval history: 09/28/2020 this is a new Pulmonary consult for shortness of breath 69-year-old woman with a history of schizophrenia, bipolar, hypertension, diabetes, asthma, COPD on 3L NC, obstructive sleep apnea prescribed CPAP in the past but not using it now presented to the hospital for shortness of breath. patient is unable to verify her past medical history and she tells me no one has ever told he
--- NOTE | 2020-09-29 08:25 | PCOTNOTE ---
Attempted OT evaluation. Pt in ECHO procedure. Will continue to attempt.
[2020-09-29 08:35] LABS: Glucose Point of Care 218 mg/dl (65-105)
[2020-09-29] MEDS: INSULIN ASPART (*BKC) 100 UNITS/ML SUB-Q ×3 (08:58→17:13)
[2020-09-29] MEDS: APIXABAN 5 MG TABLET PO ×2 (08:59→20:32)
[2020-09-29] MEDS: DOCUSATE SODIUM 100 MG CAPSULE PO ×2 (08:59→16:17)
[2020-09-29] MEDS: BENZTROPINE MESYLATE 1 MG TABLET PO ×2 (08:59→16:16)
[2020-09-29] MEDS: CHOLECALCIFEROL 1,000 UNITS TABLET 5000 UNITS PO (08:59)
[2020-09-29] MEDS: SODIUM CHLORIDE 1 GM TABLET PO (08:59)
[2020-09-29] MEDS: NIFEdipine 30 MG TAB.ER.24 PO (09:00)
[2020-09-29] MEDS: BENZONATATE 100 MG CAPSULE PO ×3 (09:00→16:16)
[2020-09-29] MEDS: predniSONE 20 MG TABLET 40 MG PO (09:00)
[2020-09-29] MEDS: PANTOPRAZOLE 40 MG TABLET PO (09:00)
[2020-09-29] MEDS: LOSARTAN POTASSIUM 100 MG TABLET PO (09:01)
[2020-09-29] MEDS: POTASSIUM CHLORIDE 20 MEQ TABLET.ER PO (09:01)
[2020-09-29] MEDS: FUROSEMIDE 40 MG TABLET PO ×2 (09:01→16:17)
[2020-09-29] MEDS: INSULIN GLARGINE (*BKC) 100 UNITS/ML 55 UNITS SUB-Q (09:09)
[2020-09-29 12:04] LABS: Glucose Point of Care 294 mg/dl (65-105)
--- NOTE | 2020-09-29 13:07 | P.PNIM_ITS ---
Progress Note: A&P Assessment and Plan (1) Atrial fibrillation with RVR: Code(s): I48.91 - Unspecified atrial fibrillation Status: Acute Assessment and Plan: Due to the patient's shortness of breath and chest pain I ordered a stat EKG, troponin, chest x-ray, ABG. * EKG showed atrial fibrillation with RVR with heart rate 153 beats per minute. By the time the placed was placed on telemetry she had converted back into normal sinus rhythm with few PVCs and PACs with a normal heart rate. * She did not receive any intervention before she had converted. * Repeat EKG showed normal sinus rhythm with HR 90 bpm with few PAC. * Cardiology evaluated the patient in reports paroxysmal atrial fibrillation. He states she has had a similar episode in the past and could been triggered by her nebulizer treatment. Patient's chads Vasc score is 4. He did recommend starting on anticoagulation so Eliquis was initiated. Cardiology wants patient's aspirin to be stopped since starting Eliquis. * Do monitoring on telemetry for any more episodes of AFib. * Recommends continuing on her nifedipine for rate control without any adjustments at this time * She will need outpatient follow-up with possible Holter monitor upon discharge to continue monitoring how many times she goes in and out of AFib. Continue Tele. Appreciate cardiology input. (2) Chest pain: Code(s): R07.9 - Chest pain, unspecified Status: Acute Assessment and Plan: Patient reported chest pain which is tender to palpation. Will give Tylenol as needed for chest pain * Could be from atrial fibrillation with RVR * CXR showed Cardiomegaly, pulmonary vascular redistribution, mild prominence of minor fissure; these findings may be consistent with mild congestive heart failure * Mild atelectasis in the lower lung zones * Troponin was normal. Continue monitoring. Appreciate cardiology's input. (3) Pneumonia: Code(s): J18.9 - Pneumonia, unspecified organism Status: Acute Assessment and Plan: Patient with any shortness of breath over the last 3 days and CTA of her chest showing patchy bilateral groundglass infiltrates which may be secondary to mild pneumonitis or small airways disease. * She had a rapid COVID swab in the emergency room which was negative. The patient does states she was vaccinated for COVID since he lives in a living facility. * Concerned could be caused from aspiration, but bedside swallow evaluation from speech therapy was normal * Continue Levaquin that was started by the admitting provider and had metronidazole (#3) for aspiration coverage. * Will order aspiration precautions * Will obtain sputum culture not completed. * Blood cultures were never completed. * Breathing treatments will be switched from p.r.n. to every 6 hours. * P.r.n. Tessalon Perles for cough. * * pulmonology would like to get a repeat chest x-ray in the morning and will consider deescalating antibiotics at that time Continue monitoring respiratory symptoms and status. Currently she is 91% on her home 3 L. (4) COPD exacerbation: Code(s): J44.1 - Chronic obstructive pulmonary disease with (acute) exacerbation Status: Acute Assessment and Plan: She was placed on IV Solu-Medrol from the emergency room 40 mg q.6 hours. * Will wean oxygen as tolerated * Since the patient wanted AFib RVR, pulmonology discontinue the patient's albuterol. Continued ipratropium q.6 hours. Switch the patient's s
--- NOTE | 2020-09-29 13:07 | PM.IMPN ---
Progress Note: A&P Assessment and Plan (1) Atrial fibrillation with RVR: Code(s): I48.91 - Unspecified atrial fibrillation Status: Acute Assessment and Plan: Due to the patient's shortness of breath and chest pain I ordered a stat EKG, troponin, chest x-ray, ABG. EKG showed atrial fibrillation with RVR with heart rate 153 beats per minute. By the time the placed was placed on telemetry she had converted back into normal sinus rhythm with few PVCs and PACs with a normal heart rate. She did not receive any intervention before she had converted. Repeat EKG showed normal sinus rhythm with HR 90 bpm with few PAC. Cardiology evaluated the patient in reports paroxysmal atrial fibrillation. He states she has had a similar episode in the past and could been triggered by her nebulizer treatment. Patient's chads Vasc score is 4. He did recommend starting on anticoagulation so Eliquis was initiated. Cardiology wants patient's aspirin to be stopped since starting Eliquis. Do monitoring on telemetry for any more episodes of AFib. Recommends continuing on her nifedipine for rate control without any adjustments at this time She will need outpatient follow-up with possible Holter monitor upon discharge to continue monitoring how many times she goes in and out of AFib. Continue Tele. Appreciate cardiology input. (2) Chest pain: Code(s): R07.9 - Chest pain, unspecified Status: Acute Assessment and Plan: Patient reported chest pain which is tender to palpation. Will give Tylenol as needed for chest pain Could be from atrial fibrillation with RVR CXR showed Cardiomegaly, pulmonary vascular redistribution, mild prominence of minor fissure; these findings may be consistent with mild congestive heart failure Mild atelectasis in the lower lung zones Troponin was normal. Continue monitoring. Appreciate cardiology's input. (3) Pneumonia: Code(s): J18.9 - Pneumonia, unspecified organism Status: Acute Assessment and Plan: Patient with any shortness of breath over the last 3 days and CTA of her chest showing patchy bilateral groundglass infiltrates which may be secondary to mild pneumonitis or small airways disease. She had a rapid COVID swab in the emergency room which was negative. The patient does states she was vaccinated for COVID since he lives in a living facility. Concerned could be caused from aspiration, but bedside swallow evaluation from speech therapy was normal Continue Levaquin that was started by the admitting provider and had metronidazole (#3) for aspiration coverage. Will order aspiration precautions Will obtain sputum culture not completed. Blood cultures were never completed. Breathing treatments will be switched from p.r.n. to every 6 hours. P.r.n. Tessalon Perles for cough. * pulmonology would like to get a repeat chest x-ray in the morning and will consider deescalating antibiotics at that time Continue monitoring respiratory symptoms and status. Currently she is 91% on her home 3 L. (4) COPD exacerbation: Code(s): J44.1 - Chronic obstructive pulmonary disease with (acute) exacerbation Status: Acute Assessment and Plan: She was placed on IV Solu-Medrol from the emergency room 40 mg q.6 hours. Will wean oxygen as tolerated Since the patient wanted AFib RVR, pulmonology discontinue the patient's albuterol. Continued ipratropium q.6 hours. Switch the patient's steroids from IV Solu-Medrol 40 Q 6 to oral prednisone 40 mg. Pulmonology added moderate dose ICS with fluticasone propionate 110 mcg at 2 puffs q.12 hours in anticipation of discontinuing systemic steroids on 09/30. *Will obtain overnight pulse oximetry by Pulm- She will ultimately need an outpatient sleep study to assess for obstructive sleep apnea. Co
[2020-09-29 17:14] LABS: Glucose Point of Care 189 mg/dl (65-105)
[2020-09-29] MEDS: INSULIN GLARGINE (*BKC) 100 UNITS/ML 80 UNITS SUB-Q (20:23)
[2020-09-29] MEDS: MONTELUKAST SODIUM 10 MG TABLET PO (20:36)
[2020-09-29] MEDS: PRAVASTATIN SODIUM 20 MG TABLET 40 MG PO (20:36)
[2020-09-29] MEDS: risperiDONE 1 MG TABLET 6 MG PO (20:36)
[2020-09-29] MEDS: FAMOTIDINE 20 MG TABLET PO (20:36)
[2020-09-29] MEDS: OLANZapine 5 MG TABLET 15 MG PO (20:38)
[2020-09-29] MEDS: hydrOXYzine pamoate 25 MG CAPSULE PO (20:39)
[2020-09-29 21:27] LABS: Glucose Point of Care 192 mg/dl (65-105)
[2020-09-29] MEDS: FLUTICASONE PROP 110 MCG INHALER 12 GM (*SP) 2 PUFF INHALATION (22:00)
--- NOTE | 2020-09-29 23:32 | PCRCNOTE ---
hermila robledo started pt on 2 liters. Per pt its her home oxygen liters.
[2020-09-30] VITALS (12 sets, daily range): BP systolic 114–155; BP diastolic 57–63; PULSE 68–86; RESP 18; TEMP 36.4–36.9; O2SAT 92–96
[2020-09-30] MEDS: metroNIDAZOLE 500 MG/ISO 100ML 500 MG/100 ML BAG 100 MG IVPB ×2 (01:02→06:12)
[2020-09-30] MEDS: ACETAMINOPHEN 325 MG TABLET 650 MG PO (06:22)
[2020-09-30 07:19] LABS: Anion Gap 3 mmol/L (8-16); Blood Urea Nitrogen 41 mg/dL (7-17); Calcium 9.4 mg/dL (8.4-10.2); Carbon Dioxide 34 mmol/L (22-30); Chloride 98 mmol/L (98-107); Estimated CRCL calculation 65 ml/min; Estimated Glomerular Filt Rate > 60; Glucose 151 mg/dL (65-110); Potassium 3.9 mmol/L (3.4-5.0); Sodium 135 mmol/L (137-145)
[2020-09-30] MEDS: IPRATROPIUM BR 0.02% INH SOLN 0.5 MG/2.5 ML VIAL INHALATION (08:03)
[2020-09-30] MEDS: FLUTICASONE PROP 110 MCG INHALER 12 GM (*SP) 2 PUFF INHALATION ×2 (08:08→21:52)
[2020-09-30 08:45] LABS: Glucose Point of Care 127 mg/dl (65-105)
--- NOTE | 2020-09-30 08:46 | PM.PNPUL ---
Progress Note: A&P Assessment and Plan (1) Shortness of breath: Code(s): R06.02 - Shortness of breath Status: Acute Assessment and Plan: 09/28 Patient's complaint is shortness of breath and this is been going on for years and worse over the last 2 weeks. Patient carries a history of hypoxemic respiratory failure on 3 L nasal cannula at the long term. Patient also carries a history of COPD and asthma which are both written in the chart. Patient denies having COPD or asthma or never been told she has COPD or asthma. She has a minimal smoking history of 3 pack years (quit at age 20) with secondhand exposure from her father and from a live-in partner for 10 years up until 20 years ago and none in the last 20 years. She tells me she had no asthma like symptoms as a child and only started having shortness of breath over the last few years. etiology of patient's shortness of breath includes asthma exacerbation, pneumonia, Afib/RVR, fluid overload on todays CXR, COPD and morbid obesity. I am not convinced she has COPD as there are no emphysematous changes on her CT scan of the chest. I have no PFTs at this time. asthma has been written in the chart and she does have 5% eosinophils on presentation with a total eosinophil count of 455 per micro L. At this time I will change her Solu-Medrol (started 09/26) to prednisone 40 mg p.o. q.day and continue her ipratropium nebulizers at 0.5 mg nebs q.6 hours. Given that she has a tachyarrhythmia will discontinue all beta agonist. Will DC flovent as on systemic steroids. She has diffuse ground-glass infiltrates throughout her chest on CT scan from 09/26/2020 with no white blood cell count and no fevers, cough and minimal phlegm production. Possible pneumonia, COVDI negative and no cultures obtained. Patient is currently on Levaquin and Flagyl at this time (antibiotics started 09/26) and will add back ceftriaixone. ABG performed today demonstrates a pH of 7.39/51/71 on 3 L nasal cannula. There is mild chronic hypercarbic respiratory failure from COPD or obesity hypoventilation syndrome but at this time she would not qualify for or BiPAP or noninvasive ventilation. Patient carries a diagnosis of obstructive sleep apnea and was prescribed CPAP in the past. I have no records supporting this and patient does not know where she had her sleep study. She will need an outpatient sleep study. 09/29 patient states that she is breathing little bit better. She states that she still has dyspnea on exertion and mild shortness of breath at rest. Current saturations on 3 L were 100%. I placed her on room air and her saturations were 94%. No wheezes on exam. she is on day 4 antibiotics, will check a chest x-ray in the morning and if she is clinically stable will consider deescalation of antibiotics on 09/30. Today is day 4 of systemic steroids and patient has no wheezing today. Will add moderate dose ICS with fluticasone propionate 110 mcg at 2 puffs q.12 hours in anticipation of discontinuing systemic steroids on 09/30. Continue ipratropium 0.5 mg nebs q.6 hours and avoid beta agonists as has tachyarrhythmia this admission. Patient was apparently on 3 L nasal nasal cannula 31/08 at the long term and currently is on room air with sats 94%. required 2 L nasal cannula at later in the day. I will obtain an overnight oximetry on room air to assess her oxygen needs at night. She will ultimately need an outpatient sleep study to assess for obstructive sleep apnea. 09/30 Patient had an overnight oximetry on 2 L nasal cannula with an average saturation of 93%, lowest saturation 74%, time with saturation less than or equal to 88% was 14 minutes or 7% of the monitored time. will place on 3 L at night. Her AHI was 12. She will ultimately need an outpatient sleep study to assess for obstructive sleep apnea. Patient states her breathing i
[2020-09-30] MEDS: PANTOPRAZOLE 40 MG TABLET PO (08:48)
[2020-09-30] MEDS: CHOLECALCIFEROL 1,000 UNITS TABLET 5000 UNITS PO (08:48)
[2020-09-30] MEDS: SODIUM CHLORIDE 1 GM TABLET PO (08:48)
[2020-09-30] MEDS: POTASSIUM CHLORIDE 20 MEQ TABLET.ER PO (08:49)
[2020-09-30] MEDS: predniSONE 20 MG TABLET 40 MG PO (08:49)
[2020-09-30] MEDS: NIFEdipine 30 MG TAB.ER.24 PO (08:49)
[2020-09-30] MEDS: LOSARTAN POTASSIUM 100 MG TABLET PO (08:49)
[2020-09-30] MEDS: DOCUSATE SODIUM 100 MG CAPSULE PO (08:49)
[2020-09-30] MEDS: BENZTROPINE MESYLATE 1 MG TABLET PO ×2 (08:49→16:53)
[2020-09-30] MEDS: APIXABAN 5 MG TABLET PO ×2 (08:50→22:20)
[2020-09-30] MEDS: BENZONATATE 100 MG CAPSULE PO ×3 (08:50→16:53)
[2020-09-30] MEDS: FUROSEMIDE 40 MG TABLET PO ×2 (08:50→16:53)
[2020-09-30] MEDS: INSULIN GLARGINE (*BKC) 100 UNITS/ML 55 UNITS SUB-Q (08:52)
--- NOTE | 2020-09-30 09:27 | PM.PNCARD ---
Progress Note: A&P Assessment and Plan (1) Atrial fibrillation with RVR: Code(s): I48.91 - Unspecified atrial fibrillation Status: Acute Assessment and Plan: paroxysmal AF, patient may have similar episodes in past, it could have been triggered by current medical illness or therapy including nebulized therapy, morbid obesity, [id number] score 4, HTN, DM, plan start oral anticoagulation and observe in tele, may consider event monitor on D/C to assess AF burden, TTE, stop ASA since started on OAC, don't see reason for having ARB and ACEI at same time, cont oral lasix and CCB Continue Eliquis 5mg p.o. q12h Continue to monitor on telemetry Echo pending Subjective Date/time seen: 09/30/20 09:27 Cardiology follow up for atrial fibrillation Date of service 09/30/2020: Feeling ok today. Says she felt some palpitations when she got up to get to the chair but is feeling fine now. Still reporting SOB. Review of Systems Review of Systems: All systems reviewed & are unremarkable except as noted in HPI and below Exam Const: General: comfortable and no acute distress Nutritional Appearance: obese HENMT: Head: normal to inspection General nose exam: Normal nares present and no epistaxis Mouth: Yes moist mucous membranes Eyes: Sclera: sclerae normal Pupils: Equal, round and reactive pupils present Neck: Neck: supple Carotids: no bruits Resp: Effort & Inspection: normal respiratory effort and Actively coughing Auscultation: diminished lung sounds bilateral Cardio: Rate: regular rate Rhythm: regular rhythm Heart sounds: no gallops, no murmurs, no rubs and Other heart sounds present (distant heart sounds ) GI: Auscultation: normal bowel sounds Skin: General skin exam: normal color Other: Warm Neuro: General: patient oriented x3 Cranial nerves: Yes Equal, round and reactive pupils present Speech: normal speech Other: No obvious focal deficit or facial asymmetry Extrem: General: no edema Other: Normal capillary refills Intact distal pulses. Psych: Mental Status: mental status grossly normal Objective Data Vital Signs Vital Signs: Vital Signs - 24 hr 09/29/20 09:40 09/29/20 12:00 09/29/20 14:00 Temperature 36.7 C Pulse Rate 78 69 66 Respiratory Rate 18 Blood Pressure 121/84 Pulse Oximetry 96 09/29/20 14:52 09/29/20 15:00 09/29/20 16:00 Temperature Pulse Rate 72 80 92 Respiratory Rate 20 20 Blood Pressure Pulse Oximetry 09/29/20 20:00 09/29/20 20:52 09/29/20 20:59 Temperature Pulse Rate 73 77 75 Respiratory Rate 18 20 Blood Pressure Pulse Oximetry 93 09/29/20 21:53 09/29/20 23:30 09/30/20 00:00 Temperature 36.3 C L Pulse Rate 92 89 68 Respiratory Rate 18 14 Blood Pressure 107/66 Pulse Oximetry 95 92 09/30/20 04:00 09/30/20 05:56 09/30/20 08:08 Temperature 36.4 C Pulse Rate 86 73 69 Respiratory Rate 18 18 Blood Pressure 114/63 Pulse Oximetry 96 93 09/30/20 08:16 Temperature Pulse Rate 73 Respiratory Rate 18 Blood Pressure Pulse Oximetry Intake/Output Intake/Output: Intake & Output 09/27/20 09/28/20 09/29/20 09/30/20 23:59 23:59 23:59 23:59 Intake Total 1505 2080 2780 850 Output Total 975 1100 1700 800 Balance 416 790 7604 50 Meds/Results Medications: Active Medications Generic Name Dose Route Start Last Admin Trade Name Freq PRN Reason Stop Dose Admin Acetaminophen 650 mg 09/28/20 10:17 09/30/20 06:22 Acetaminophen 325 Mg Tablet PO 650 mg Q4-6H PRN Administration Fever Or Pain 1-3 Apixaban 5 mg 09/28/20 21:00 09/30/20 08:50 Apixaban 5 Mg Tablet PO 5 mg Q12HR EWA Administration Benzonatate 100 mg 09/27/20 09:00 09/30/20 08:50 Benzonatate 100 Mg Capsule PO 100 mg TID EWA Administration Benztropine Mesylate 1 mg 09/27/20 09:00 09/30/20 08:49 Benztropine Mesylate 1 Mg Tablet PO 1 mg BID EWA Administration Dextrose 12.5 gm 09/27/20 12
--- NOTE | 2020-09-30 12:20 | PM.IMPN ---
Progress Note: A&P Assessment and Plan (1) Gastric distention: Code(s): K31.89 - Other diseases of stomach and duodenum Status: Acute Assessment and Plan: Abdominal distension and tympanic to percussion to upper quadrants. Abdominal x-ray shows distended stomach which is new from 09/26/2020. Small amount of stool in the colon. She is still passing gas and stool. She is not having any pain. She is comfortable at this time. There are contradictions to starting reglan with her psychiatric medications. Will have the patient be more active with staff to help improve symptoms. If she has any issues with vomiting she may need an NG tube. Right now she is asymptomatic other than distended stomach. If symptoms do not improve consider gastric emptying study versus small-bowel follow-through testing Continue monitoring. (2) Atrial fibrillation with RVR: Code(s): I48.91 - Unspecified atrial fibrillation Status: Acute Assessment and Plan: Due to the patient's shortness of breath and chest pain I ordered a stat EKG, troponin, chest x-ray, ABG. EKG showed atrial fibrillation with RVR with heart rate 153 beats per minute. By the time the placed was placed on telemetry she had converted back into normal sinus rhythm with few PVCs and PACs with a normal heart rate. She did not receive any intervention before she had converted. Repeat EKG showed normal sinus rhythm with HR 90 bpm with few PAC. Cardiology evaluated the patient in reports paroxysmal atrial fibrillation. He states she has had a similar episode in the past and could been triggered by her nebulizer treatment. Patient's chads Vasc score is 4. He did recommend starting on anticoagulation so Eliquis was initiated. Cardiology wants patient's aspirin to be stopped since starting Eliquis. Continue to monitor on telemetry for any more episodes of AFib. Recommends continuing on her nifedipine for rate control without any adjustments at this time She will need outpatient follow-up with possible Holter monitor upon discharge to continue monitoring how many times she goes in and out of AFib. Continue Tele. Appreciate cardiology input. (3) Chest pain: Code(s): R07.9 - Chest pain, unspecified Status: Acute Assessment and Plan: Patient reported chest pain which is tender to palpation. Will give Tylenol as needed for chest pain Could be from atrial fibrillation with RVR CXR showed Cardiomegaly, pulmonary vascular redistribution, mild prominence of minor fissure; these findings may be consistent with mild congestive heart failure Mild atelectasis in the lower lung zones Troponin was normal. Continue monitoring. Appreciate cardiology's input. (4) Pneumonia: Code(s): J18.9 - Pneumonia, unspecified organism Status: Acute Assessment and Plan: Patient with any shortness of breath over the last 3 days and CTA of her chest showing patchy bilateral groundglass infiltrates which may be secondary to mild pneumonitis or small airways disease. She had a rapid COVID swab in the emergency room which was negative. The patient does states she was vaccinated for COVID since he lives in a living facility. Concerned could be caused from aspiration, but bedside swallow evaluation from speech therapy was normal Continue Levaquin that was started by the admitting provider and had metronidazole (#3) for aspiration coverage. Will order aspiration precautions Will obtain sputum culture not completed. Blood cultures were never completed. Breathing treatments will be switched from p.r.n. to every 6 hours. P.r.n. Tesgonzalez Perles for cough. * pulmonology would like to get a repeat chest x-ray today and will consider deescalating antibiotics at that time Continue monitoring respiratory symptoms and status
[2020-09-30 12:35] LABS: Glucose Point of Care 219 mg/dl (65-105)
[2020-09-30] MEDS: INSULIN ASPART (*BKC) 100 UNITS/ML SUB-Q ×2 (12:49→16:53)
[2020-09-30 16:32] LABS: Glucose Point of Care 328 mg/dl (65-105)
--- NOTE | 2020-09-30 18:20 | PC.NURSE ---
Patient encouraged to get out of chair and bed and go for walks. Stated, will go for a walk later. Patient encouraged to exercise limbs and move as much as possible while in chair. Patient in chair for all meals. Will continue to encourage.
[2020-09-30] MEDS: INSULIN GLARGINE (*BKC) 100 UNITS/ML 80 UNITS SUB-Q (22:17)
[2020-09-30] MEDS: PRAVASTATIN SODIUM 20 MG TABLET 40 MG PO (22:19)
[2020-09-30] MEDS: risperiDONE 1 MG TABLET 6 MG PO (22:19)
[2020-09-30] MEDS: MONTELUKAST SODIUM 10 MG TABLET PO (22:20)
[2020-09-30] MEDS: OLANZapine 5 MG TABLET 15 MG PO (22:20)
[2020-09-30] MEDS: hydrOXYzine pamoate 25 MG CAPSULE PO (22:20)
[2020-09-30] MEDS: FAMOTIDINE 20 MG TABLET PO (22:20)
[2020-10-01] VITALS (11 sets, daily range): BP systolic 119–149; BP diastolic 49–60; PULSE 70–96; RESP 16–20; TEMP 36.5–36.9; O2SAT 92–97
[2020-10-01 01:10] LABS: Glucose Point of Care 235 mg/dl (65-105)
[2020-10-01 06:45] LABS: Hemoglobin 12.6 g/dL (12.0-15.0); Mean Corpuscular Hemoglobin 24.6 pg (26-34); Mean Corpuscular Volume 81.9 fl (80-100); Mean Platelet Volume 10.3 fl (7.4-10.4); Platelet Count Result 237 k/mm3 (150-375); Red Blood Count 5.13 M/mm3 (4.2-5.4); Red Cell Distribution Width 13.2 % (11.5-14.5); White Blood Count 8.2 K/mm3 (4.5-10.0)
[2020-10-01 07:04] LABS: Anion Gap 5 mmol/L (8-16); Blood Urea Nitrogen 31 mg/dL (7-17); Calcium 9.1 mg/dL (8.4-10.2); Carbon Dioxide 36 mmol/L (22-30); Chloride 90 mmol/L (98-107); Estimated CRCL calculation 85 ml/min; Estimated Glomerular Filt Rate > 60; Glucose 160 mg/dL (65-110); Potassium 3.7 mmol/L (3.4-5.0); Sodium 131 mmol/L (137-145)
--- NOTE | 2020-10-01 08:23 | P.PNPL_ITS ---
Progress Note: A&P Assessment and Plan (1) Shortness of breath: Code(s): R06.02 - Shortness of breath Status: Acute Assessment and Plan: 09/28 Patient's complaint is shortness of breath and this is been going on for years and worse over the last 2 weeks. Patient carries a history of hypoxemic respiratory failure on 3 L nasal cannula at the long term. Patient also carries a history of COPD and asthma which are both written in the chart. Patient denies having COPD or asthma or never been told she has COPD or asthma. She has a minimal smoking history of 3 pack years (quit at age 20) with secondhand exposure from her father and from a live-in partner for 10 years up until 20 years ago and none in the last 20 years. She tells me she had no asthma like symptoms as a child and only started having shortness of breath over the last few years. etiology of patient's shortness of breath includes asthma exacerbation, pneumonia, Afib/RVR, fluid overload on todays CXR, COPD and morbid obesity. I am not convinced she has COPD as there are no emphysematous changes on her CT scan of the chest. I have no PFTs at this time. asthma has been written in the chart and she does have 5% eosinophils on presentation with a total eosinophil count of 455 per micro L. At this time I will change her Solu- Medrol (started 09/26) to prednisone 40 mg p.o. q.day and continue her ipratropium nebulizers at 0.5 mg nebs q.6 hours. Given that she has a tachyarrhythmia will discontinue all beta agonist. Will DC flovent as on systemic steroids. She has diffuse ground-glass infiltrates throughout her chest on CT scan from 09/26/2020 with no white blood cell count and no fevers, cough and minimal phlegm production. Possible pneumonia, COVDI negative and no cultures obtained. Patient is currently on Levaquin and Flagyl at this time (antibiotics started 09/26) and will add back ceftriaixone. ABG performed today demonstrates a pH of 7.39/51/71 on 3 L nasal cannula. There is mild chronic hypercarbic respiratory failure from COPD or obesity hypoventilation syndrome but at this time she would not qualify for or BiPAP or noninvasive ventilation. Patient carries a diagnosis of obstructive sleep apnea and was prescribed CPAP in the past. I have no records supporting this and patient does not know where she had her sleep study. She will need an outpatient sleep study. 09/29 patient states that she is breathing little bit better. She states that she still has dyspnea on exertion and mild shortness of breath at rest. Current saturations on 3 L were 100%. I placed her on room air and her saturations were 94%. No wheezes on exam. she is on day 4 antibiotics, will check a chest x- ray in the morning and if she is clinically stable will consider deescalation of antibiotics on 09/30. Today is day 4 of systemic steroids and patient has no wheezing today. Will add moderate dose ICS with fluticasone propionate 110 mcg at 2 puffs q.12 hours in anticipation of discontinuing systemic steroids on 09/30. Continue ipratropium 0.5 mg nebs q.6 hours and avoid beta agonists as has tachyarrhythmia this admission. Patient was apparently on 3 L nasal nasal cannula 31/08 at the long term and currently is on room air with sats 94%. required 2 L nasal cannula at later in the day. I will obtain an overnight oximetry on room air to assess her oxygen needs at night. She will ultimately need an outpatient sleep study to assess for obstructive sleep apnea. 09/30 Patient had an overnight oximetry on 2 L nasal cannula with an average saturation of 93%, lowest saturation 74%, time with saturation less than or
[2020-10-01] MEDS: FLUTICASONE PROP 110 MCG INHALER 12 GM (*SP) 2 PUFF INHALATION ×2 (08:48→20:17)
[2020-10-01 08:57] LABS: Glucose Point of Care 107 mg/dl (65-105)
[2020-10-01] MEDS: CHOLECALCIFEROL 1,000 UNITS TABLET 5000 UNITS PO (09:10)
[2020-10-01] MEDS: SODIUM CHLORIDE 1 GM TABLET PO (09:11)
[2020-10-01] MEDS: PANTOPRAZOLE 40 MG TABLET PO (09:11)
[2020-10-01] MEDS: POTASSIUM CHLORIDE 20 MEQ TABLET.ER PO (09:11)
[2020-10-01] MEDS: NIFEdipine 30 MG TAB.ER.24 PO (09:11)
[2020-10-01] MEDS: BENZONATATE 100 MG CAPSULE PO ×3 (09:11→17:41)
[2020-10-01] MEDS: BENZTROPINE MESYLATE 1 MG TABLET PO ×2 (09:11→17:44)
[2020-10-01] MEDS: FUROSEMIDE 40 MG TABLET PO ×2 (09:12→17:44)
[2020-10-01] MEDS: TOLNAFTATE 1% POWDER 45 GM BTL 1 APPLIC TOPICAL (09:12)
[2020-10-01] MEDS: LOSARTAN POTASSIUM 100 MG TABLET PO (09:12)
[2020-10-01] MEDS: INSULIN GLARGINE (*BKC) 100 UNITS/ML 55 UNITS SUB-Q (09:13)
[2020-10-01] MEDS: APIXABAN 5 MG TABLET PO ×2 (09:13→22:29)
--- NOTE | 2020-10-01 10:15 | PM.PNCARD ---
Progress Note: A&P Assessment and Plan (1) Atrial fibrillation with RVR: Code(s): I48.91 - Unspecified atrial fibrillation Status: Acute Assessment and Plan: paroxysmal AF, patient may have similar episodes in past, it could have been triggered by current medical illness or therapy including nebulized therapy, morbid obesity, [id number] score 4, HTN, DM, plan start oral anticoagulation and observe in tele, may consider event monitor on D/C to assess AF burden, TTE, stop ASA since started on OAC, don't see reason for having ARB and ACEI at same time, cont oral lasix and CCB Continue Eliquis 5mg p.o. q12h Continue to monitor on telemetry (2) Hypertension: Code(s): I10 - Essential (primary) hypertension Status: Acute Assessment and Plan: Above goal. Will increase her nifedipine to 60 mg daily (3) Chest pain: Code(s): R07.9 - Chest pain, unspecified Status: Acute Assessment and Plan: Currently resolved. Recommend outpatient stress test (4) COPD (chronic obstructive pulmonary disease): Code(s): J44.9 - Chronic obstructive pulmonary disease, unspecified Status: Acute Assessment and Plan: Per pulmonology Subjective Date/time seen: 10/01/20 10:15 Interval history: 69-year-old woman with a history of schizophrenia, bipolar, hypertension, diabetes, asthma, COPD on 3L NC, obstructive sleep apnea prescribed CPAP in the past but not using it now presented to the hospital for shortness of breath. patient is unable to verify her past medical history and she tells me no one has ever told her she has had asthma or COPD. Patient did tell me she did a sleep study in the past and that she was prescribed a CPAP mask. She does not know where this study was performed but stated that she only wear the mask for few weeks and then she was told that she should just wear oxygen. Patient does not know who told her this. Patient states that she smoked tobacco from age [age] at 1 pack per day for total of 3 pack years. Patient was exposed to secondhand smoke through her father and through a partner who lived with her from 30-20 years ago. Patient has no exposure to secondhand smoke since then. 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 Patient was admitted to the hospital for shortness of breath from 05/12 to 05/14/2020 and was treated for fluid overload and with IV Lasix and improved. She denies any previous COPD exacerbations or asthma exacerbations. 09/26/20 Presented to the ER with shortness of breath. Patient has had shortness of breath for many years but states that it has been worse over the last 2 weeks. Patient denies any fever, chills, rigors, phlegm production or hemoptysis. Patient does states she has a dry cough that occurs maybe once an hour in the morning. Patient presented to the emergency department on 09/26 with shortness of breath, and was found to have wheezing on exam. Her white blood cell count was 9.1K, blood gas on 3 L nasal cannula was 7.42/55 / 144. she was COVID negative by rapid test. Her CT angiogram showed no PE but diffuse ground-glass infiltrates and she was given ceftriaxone and azithromycin in the emergency department and admitted to the floor. Patient was changed to Levaquin and Flagyl on the floor for possible aspiration. Patient was treated for COPD exacerbation with Solu-Medrol and bronchodilators. 09/28 Early this morning patient had worsening shortness of breath and an EKG demonstrated AFib with RVR. Patient self converted and currently is in sinus and states that she is breathing a little bit better now. Patient is on 3 L nasal cannula saturations 95%. A blood gas was obtained which demonstrated a pH of 7.39/51/71. A chest x-ray was obtained which demonstrated worsening pulmonary congestion. Currently the patient tells me that she feels the [facility]
[2020-10-01 12:21] LABS: Glucose Point of Care 157 mg/dl (65-105)
--- NOTE | 2020-10-01 16:41 | P.PNIM_ITS ---
Progress Note: A&P Assessment and Plan (1) Gastric distention: Code(s): K31.89 - Other diseases of stomach and duodenum Status: Acute Assessment and Plan: * Abdominal distension noted to the transverse colon, softer on palpation in the afternoon * Abdominal x-ray shows distended stomach which is new from 09/26/2020. Small amount of stool in the colon. * passing gas and stool. No pain, and comfortable * tolerating diet * Repeat KUB pending (2) Atrial fibrillation with RVR: Code(s): I48.91 - Unspecified atrial fibrillation Status: Acute Assessment and Plan: * EKG showed atrial fibrillation with RVR with heart rate 153 beats per minute. * Tele monitor shows SR * Repeat EKG showed normal sinus rhythm with HR 90 bpm with few PAC. * Cardiology consulted thank you * chads Vasc score is 4. Eliquis was initiated. * Stop aspirin starting Eliquis. * continuing nifedipine for rate control * possible Holter monitor upon discharge (3) Chest pain: Code(s): R07.9 - Chest pain, unspecified Status: Acute Assessment and Plan: * Could be from atrial fibrillation with RVR * CXR showed Cardiomegaly, pulmonary vascular redistribution, mild prominence of minor fissure; these findings may be consistent with mild congestive heart failure * Mild atelectasis in the lower lung zones * Cards consult * Trops negative . (4) Pneumonia: Code(s): J18.9 - Pneumonia, unspecified organism Status: Acute Assessment and Plan: * shortness of breath over the last 3 days * CTA of her chest showing patchy bilateral ground glass infiltrates which may be secondary to mild pneumonitis or small airways disease. * She had a rapid COVID swab in the emergency room which was negative. The patient does states she was * vaccinated for COVID * Could be caused from aspiration, but bedside swallow evaluation from speech therapy was normal * Continue Levaquin and metronidazole (#3) for aspiration coverage. * aspiration precautions * sputum culture not completed. * Blood cultures were never completed. * Pulm: continue levaquin (5) GERD (gastroesophageal reflux disease): Code(s): K21.9 - Gastro-esophageal reflux disease without esophagitis Status: Acute Assessment and Plan: Continue pantoprazole (6) Diabetes: Code(s): E11.9 - Type 2 diabetes mellitus without complications Status: Acute Assessment and Plan: Will continue patient's Lantus twice daily and sliding scale insulin with meals. * Will decrease them slightly due to hospitalization and controlling her diet. * Elevated glucose from IV Solu-medrol. She is on Home Insulin a this time. Solu-medrol was stopped 09/27/20 and now started on oral prednisone. Continue Accu-Cheks AC and HS. Sliding scale insulin ordered. Hypoglycemic protocol in place. (7) Hypertension: Code(s): I10 - Essential (primary) hypertension Status: Acute Assessment and Plan: Blood pressure this morning 139/60 Stable Continue home meds. Time Spent With Patient Time with patient: 25 - 35 minutes Subjective Date/time seen: Date of service:10/01/20 11:50 Interv
--- NOTE | 2020-10-01 16:41 | PM.IMPN ---
Progress Note: A&P Assessment and Plan (1) Gastric distention: Code(s): K31.89 - Other diseases of stomach and duodenum Status: Acute Assessment and Plan: Abdominal distension noted to the transverse colon, softer on palpation in the afternoon Abdominal x-ray shows distended stomach which is new from 09/26/2020. Small amount of stool in the colon. passing gas and stool. No pain, and comfortable tolerating diet Repeat KUB pending (2) Atrial fibrillation with RVR: Code(s): I48.91 - Unspecified atrial fibrillation Status: Acute Assessment and Plan: EKG showed atrial fibrillation with RVR with heart rate 153 beats per minute. Tele monitor shows SR Repeat EKG showed normal sinus rhythm with HR 90 bpm with few PAC. Cardiology consulted thank you chads Vasc score is 4. Eliquis was initiated. Stop aspirin starting Eliquis. continuing nifedipine for rate control possible Holter monitor upon discharge (3) Chest pain: Code(s): R07.9 - Chest pain, unspecified Status: Acute Assessment and Plan: Could be from atrial fibrillation with RVR CXR showed Cardiomegaly, pulmonary vascular redistribution, mild prominence of minor fissure; these findings may be consistent with mild congestive heart failure Mild atelectasis in the lower lung zones Cards consult Trops negative . (4) Pneumonia: Code(s): J18.9 - Pneumonia, unspecified organism Status: Acute Assessment and Plan: shortness of breath over the last 3 days CTA of her chest showing patchy bilateral ground glass infiltrates which may be secondary to mild pneumonitis or small airways disease. She had a rapid COVID swab in the emergency room which was negative. The patient does states she was vaccinated for COVID Could be caused from aspiration, but bedside swallow evaluation from speech therapy was normal Continue Levaquin and metronidazole (#3) for aspiration coverage. aspiration precautions sputum culture not completed. Blood cultures were never completed. Pulm: continue levaquin (5) GERD (gastroesophageal reflux disease): Code(s): K21.9 - Gastro-esophageal reflux disease without esophagitis Status: Acute Assessment and Plan: Continue pantoprazole (6) Diabetes: Code(s): E11.9 - Type 2 diabetes mellitus without complications Status: Acute Assessment and Plan: Will continue patient's Lantus twice daily and sliding scale insulin with meals. Will decrease them slightly due to hospitalization and controlling her diet. Elevated glucose from IV Solu-medrol. She is on Home Insulin a this time. Solu-medrol was stopped 09/27/20 and now started on oral prednisone. Continue Accu-Cheks AC and HS. Sliding scale insulin ordered. Hypoglycemic protocol in place. (7) Hypertension: Code(s): I10 - Essential (primary) hypertension Status: Acute Assessment and Plan: Blood pressure this morning 139/60 Stable Continue home meds. Time Spent With Patient Time with patient: 25 - 35 minutes Subjective Date/time seen: Date of service:10/01/20 11:50 Interval history: Patient is a 69-year-old female who is here for worsening shortness of breath. Today patient states that she feels okay and that she is starving. She also stated that her abdomen has decreased a little and is not as distended as has been. She also stated that she is having the runs and having lots of BMs according to nursing patient has been having a BM about every 30 minutes to an hour. She denies nausea vomiting, sweats and chills, f
[2020-10-01 17:14] LABS: Glucose Point of Care 222 mg/dl (65-105)
[2020-10-01] MEDS: INSULIN ASPART (*BKC) 100 UNITS/ML SUB-Q (17:42)
[2020-10-01] MEDS: risperiDONE 1 MG TABLET 6 MG PO (22:28)
[2020-10-01] MEDS: MONTELUKAST SODIUM 10 MG TABLET PO (22:28)
[2020-10-01] MEDS: FAMOTIDINE 20 MG TABLET PO (22:29)
[2020-10-01] MEDS: OLANZapine 5 MG TABLET 15 MG PO (22:29)
[2020-10-01] MEDS: hydrOXYzine pamoate 25 MG CAPSULE PO (22:29)
[2020-10-01] MEDS: PRAVASTATIN SODIUM 20 MG TABLET 40 MG PO (22:30)
[2020-10-01 23:04] LABS: Glucose Point of Care 69 mg/dl (65-105)
[2020-10-01 23:04] LABS: Glucose Point of Care 131 mg/dl (65-105)
[2020-10-02] VITALS: PULSE 72
[2020-10-02] MEDS: ACETAMINOPHEN 325 MG TABLET 650 MG PO ×2 (03:25→20:16)
[2020-10-02 04:00] VITALS: PULSE 69
[2020-10-02 06:00] VITALS: BP 139/72; PULSE 88; RESP 18; TEMP 36.4; O2SAT 95
[2020-10-02 06:09] LABS: Hemoglobin 12.9 g/dL (12.0-15.0); Mean Corpuscular Hemoglobin 24.7 pg (26-34); Mean Corpuscular Volume 82.2 fl (80-100); Mean Platelet Volume 10.1 fl (7.4-10.4); Platelet Count Result 236 k/mm3 (150-375); Red Blood Count 5.23 M/mm3 (4.2-5.4); Red Cell Distribution Width 13.2 % (11.5-14.5); White Blood Count 10.4 K/mm3 (4.5-10.0)
[2020-10-02 06:34] LABS: Alanine Aminotransferase 24 U/L (4-35); Albumin Level 3.3 g/dL (3.5-5.1); Alkaline Phosphatase 64 U/L (38-126); Anion Gap 3 mmol/L (8-16); Aspartate Amino Transferase 22 U/L (14-36); Bilirubin,Total 0.2 mg/dL (0.2-1.3); Blood Urea Nitrogen 27 mg/dL (7-17); Calcium 9.4 mg/dL (8.4-10.2); Carbon Dioxide 39 mmol/L (22-30); Chloride 88 mmol/L (98-107); Estimated CRCL calculation 74 ml/min; Estimated Glomerular Filt Rate > 60; Glucose 132 mg/dL (65-110); Magnesium 1.6 mg/dL (1.6-2.3); Potassium 3.9 mmol/L (3.4-5.0); Sodium 130 mmol/L (137-145)
[2020-10-02 08:00] VITALS: PULSE 79; O2SAT 95
[2020-10-02] MEDS: FLUTICASONE PROP 110 MCG INHALER 12 GM (*SP) 2 PUFF INHALATION (08:34)
[2020-10-02] MEDS: APIXABAN 5 MG TABLET PO (08:41)
[2020-10-02] MEDS: CHOLECALCIFEROL 1,000 UNITS TABLET 5000 UNITS PO (08:41)
[2020-10-02] MEDS: BENZONATATE 100 MG CAPSULE PO ×3 (08:41→16:47)
[2020-10-02] MEDS: NIFEdipine 30 MG TAB.ER.24 60 MG PO (08:42)
[2020-10-02] MEDS: POTASSIUM CHLORIDE 20 MEQ TABLET.ER PO (08:42)
[2020-10-02] MEDS: LOSARTAN POTASSIUM 100 MG TABLET PO (08:42)
[2020-10-02] MEDS: SODIUM CHLORIDE 1 GM TABLET PO (08:42)
[2020-10-02] MEDS: BENZTROPINE MESYLATE 1 MG TABLET PO ×2 (08:42→16:47)
[2020-10-02] MEDS: PANTOPRAZOLE 40 MG TABLET PO (08:42)
[2020-10-02] MEDS: FUROSEMIDE 40 MG TABLET PO ×2 (08:42→16:47)
[2020-10-02 09:11] LABS: Glucose Point of Care 154 mg/dl (65-105)
[2020-10-02] MEDS: INSULIN GLARGINE (*BKC) 100 UNITS/ML 55 UNITS SUB-Q (09:32)
[2020-10-02] MEDS: MAGNESIUM SULF 4 GM/WATER100ML 4 GM/100 ML BAG IVPB (09:33)
[2020-10-02 12:00] VITALS: PULSE 86
[2020-10-02] MEDS: INSULIN ASPART (*BKC) 100 UNITS/ML SUB-Q ×2 (12:26→13:14)
--- NOTE | 2020-10-02 12:28 | P.DS_ITS ---
DS: Admitting Diagnosis Admitting Diagnosis Shortness of breath DS: Discharge Diagnosis Discharge Diagnosis (1) Gastric distention: Code(s): K31.89 - Other diseases of stomach and duodenum Status: Acute Assessment and Plan: * Abdominal distension noted to the transverse colon, softer on palpation in the afternoon * Abdominal x-ray shows distended stomach which is new from 09/26/2020. Small amount of stool in the colon. * passing gas and stool. No pain, and comfortable * tolerating diet * Repeat KUB pending (2) Atrial fibrillation with RVR: Code(s): I48.91 - Unspecified atrial fibrillation Status: Acute Assessment and Plan: * EKG showed atrial fibrillation with RVR with heart rate 153 beats per minute. * Tele monitor shows SR * Repeat EKG showed normal sinus rhythm with HR 90 bpm with few PAC. * Cardiology consulted thank you * chads Vasc score is 4. Eliquis was initiated. * Stop aspirin starting Eliquis. * continuing nifedipine for rate control * possible Holter monitor upon discharge (3) Chest pain: Code(s): R07.9 - Chest pain, unspecified Status: Acute Assessment and Plan: * Could be from atrial fibrillation with RVR * CXR showed Cardiomegaly, pulmonary vascular redistribution, mild prominence of minor fissure; these findings may be consistent with mild congestive heart failure * Mild atelectasis in the lower lung zones * Cards consult * Trops negative . (4) Pneumonia: Code(s): J18.9 - Pneumonia, unspecified organism Status: Acute Assessment and Plan: * shortness of breath over the last 3 days * CTA of her chest showing patchy bilateral ground glass infiltrates which may be secondary to mild pneumonitis or small airways disease. * She had a rapid COVID swab in the emergency room which was negative. The pat ient does states she was * vaccinated for COVID * Could be caused from aspiration, but bedside swallow evaluation from speech therapy was normal * Continue Levaquin and metronidazole (#3) for aspiration coverage. * aspiration precautions * sputum culture not completed. * Blood cultures were never completed. * Pulm: continue levaquin (5) GERD (gastroesophageal reflux disease): Code(s): K21.9 - Gastro-esophageal reflux disease without esophagitis Status: Acute Assessment and Plan: Continue pantoprazole (6) Diabetes: Code(s): E11.9 - Type 2 diabetes mellitus without complications Status: Acute Assessment and Plan: Will continue patient's Lantus twice daily and sliding scale insulin with meals. * Will decrease them slightly due to hospitalization and controlling her diet. * Elevated glucose from IV Solu-medrol. She is on Home Insulin a this time. Solu-medrol was stopped 09/27/20 and now started on oral prednisone. Continue Accu-Cheks AC and HS. Sliding scale insulin ordered. Hypoglycemic pro tocol in place. (7) Hypertension: Code(s): I10 - Essential (primary) hypertension Status: Acute Assessment and Plan: Blood pressure this morning 139/60 Stable Continue home meds. DS: Summary Hospital Course Reason for hospitalizat
--- NOTE | 2020-10-02 12:28 | PM.DS ---
DS: Admitting Diagnosis Admitting Diagnosis Shortness of breath DS: Discharge Diagnosis Discharge Diagnosis (1) Gastric distention: Code(s): K31.89 - Other diseases of stomach and duodenum Status: Acute Assessment and Plan: Abdominal distension noted to the transverse colon, softer on palpation in the afternoon Abdominal x-ray shows distended stomach which is new from 09/26/2020. Small amount of stool in the colon. passing gas and stool. No pain, and comfortable tolerating diet Repeat KUB pending (2) Atrial fibrillation with RVR: Code(s): I48.91 - Unspecified atrial fibrillation Status: Acute Assessment and Plan: EKG showed atrial fibrillation with RVR with heart rate 153 beats per minute. Tele monitor shows SR Repeat EKG showed normal sinus rhythm with HR 90 bpm with few PAC. Cardiology consulted thank you chads Vasc score is 4. Eliquis was initiated. Stop aspirin starting Eliquis. continuing nifedipine for rate control possible Holter monitor upon discharge (3) Chest pain: Code(s): R07.9 - Chest pain, unspecified Status: Acute Assessment and Plan: Could be from atrial fibrillation with RVR CXR showed Cardiomegaly, pulmonary vascular redistribution, mild prominence of minor fissure; these findings may be consistent with mild congestive heart failure Mild atelectasis in the lower lung zones Cards consult Trops negative . (4) Pneumonia: Code(s): J18.9 - Pneumonia, unspecified organism Status: Acute Assessment and Plan: shortness of breath over the last 3 days CTA of her chest showing patchy bilateral ground glass infiltrates which may be secondary to mild pneumonitis or small airways disease. She had a rapid COVID swab in the emergency room which was negative. The patient does states she was vaccinated for COVID Could be caused from aspiration, but bedside swallow evaluation from speech therapy was normal Continue Levaquin and metronidazole (#3) for aspiration coverage. aspiration precautions sputum culture not completed. Blood cultures were never completed. Pulm: continue levaquin (5) GERD (gastroesophageal reflux disease): Code(s): K21.9 - Gastro-esophageal reflux disease without esophagitis Status: Acute Assessment and Plan: Continue pantoprazole (6) Diabetes: Code(s): E11.9 - Type 2 diabetes mellitus without complications Status: Acute Assessment and Plan: Will continue patient's Lantus twice daily and sliding scale insulin with meals. Will decrease them slightly due to hospitalization and controlling her diet. Elevated glucose from IV Solu-medrol. She is on Home Insulin a this time. Solu-medrol was stopped 09/27/20 and now started on oral prednisone. Continue Accu-Cheks AC and HS. Sliding scale insulin ordered. Hypoglycemic protocol in place. (7) Hypertension: Code(s): I10 - Essential (primary) hypertension Status: Acute Assessment and Plan: Blood pressure this morning 139/60 Stable Continue home meds. DS: Summary Hospital Course Reason for hospitalization: date of service 10/02/2020 at 11:50 a.m. Hospital Course: patient is a 69-year-old female with a past medical history of GERD, hypertension, CHF who presented the ED with increased shortness of breath for a week or 2. Since admission patient was treated with IV antibiotics and steroids. It was also noted the patient had a burst of atrial fibrillation since admission. She did reach as high as 153 beats per minute which cardiology was consulted and
--- NOTE | 2020-10-02 13:02 | PM.PNCARD ---
Progress Note: A&P Assessment and Plan (1) Atrial fibrillation with RVR: Code(s): I48.91 - Unspecified atrial fibrillation Status: Acute Assessment and Plan: paroxysmal AF, patient may have similar episodes in past, it could have been triggered by current medical illness or therapy including nebulized therapy, morbid obesity, [id number] score 4, HTN, DM, plan start oral anticoagulation and observe in tele, may consider event monitor on D/C to assess AF burden, TTE, stop ASA since started on OAC, don't see reason for having ARB and ACEI at same time, cont oral lasix and CCB Continue Eliquis 5mg p.o. q12h Continue to monitor on telemetry (2) Hypertension: Code(s): I10 - Essential (primary) hypertension Status: Acute Assessment and Plan: Better controlled (3) Chest pain: Code(s): R07.9 - Chest pain, unspecified Status: Acute Assessment and Plan: Currently resolved. Recommend outpatient stress test (4) COPD (chronic obstructive pulmonary disease): Code(s): J44.9 - Chronic obstructive pulmonary disease, unspecified Status: Acute Assessment and Plan: Per pulmonology Subjective Date/time seen: 10/02/20 13:03 Interval history: 69-year-old woman with a history of schizophrenia, bipolar, hypertension, diabetes, asthma, COPD on 3L NC, obstructive sleep apnea prescribed CPAP in the past but not using it now presented to the hospital for shortness of breath. patient is unable to verify her past medical history and she tells me no one has ever told her she has had asthma or COPD. Patient did tell me she did a sleep study in the past and that she was prescribed a CPAP mask. She does not know where this study was performed but stated that she only wear the mask for few weeks and then she was told that she should just wear oxygen. Patient does not know who told her this. Patient states that she smoked tobacco from age [age] at 1 pack per day for total of 3 pack years. Patient was exposed to secondhand smoke through her father and through a partner who lived with her from 30-20 years ago. Patient has no exposure to secondhand smoke since then. 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 Patient was admitted to the hospital for shortness of breath from 05/12 to 05/14/2020 and was treated for fluid overload and with IV Lasix and improved. She denies any previous COPD exacerbations or asthma exacerbations. 09/26/20 Presented to the ER with shortness of breath. Patient has had shortness of breath for many years but states that it has been worse over the last 2 weeks. Patient denies any fever, chills, rigors, phlegm production or hemoptysis. Patient does states she has a dry cough that occurs maybe once an hour in the morning. Patient presented to the emergency department on 09/26 with shortness of breath, and was found to have wheezing on exam. Her white blood cell count was 9.1K, blood gas on 3 L nasal cannula was 7.42/55 / 144. she was COVID negative by rapid test. Her CT angiogram showed no PE but diffuse ground-glass infiltrates and she was given ceftriaxone and azithromycin in the emergency department and admitted to the floor. Patient was changed to Levaquin and Flagyl on the floor for possible aspiration. Patient was treated for COPD exacerbation with Solu-Medrol and bronchodilators. 09/28 Early this morning patient had worsening shortness of breath and an EKG demonstrated AFib with RVR. Patient self converted and currently is in sinus and states that she is breathing a little bit better now. Patient is on 3 L nasal cannula saturations 95%. A blood gas was obtained which demonstrated a pH of 7.39/51/71. A chest x-ray was obtained which demonstrated worsening pulmonary congestion. Currently the patient tells me that she feels the same as yesterday although little better t
[2020-10-02 13:11] LABS: Glucose Point of Care 238 mg/dl (65-105)
[2020-10-02 13:32] LABS: EDCOVIDSCREEN Negative (Negative)
[2020-10-02 14:00] VITALS: BP 152/67; PULSE 97; RESP 21; TEMP 37; O2SAT 97
[2020-10-02 17:43] LABS: Glucose Point of Care 111 mg/dl (65-105)
== END 2020-10-02 20:10 | DRG 139 ==
LOC: ANHED 18:33 → ANH3MEDSUR 09-27 00:33
PROVIDERS: Emergency Medicine; Nurse Practitioner; Physician Assistant; Physician Assistant Medical; Admitting Provider Internal Medicine; Emergency Provider Emergency Medicine; Visit Provider Internal Medicine
DX: J18.9 Pneumonia, unspecified organism (principal); J45.909 Unspecified asthma, uncomplicated; Z20.822 Contact with and (suspected) exposure to COVID-19; K31.89 Other diseases of stomach and duodenum; K21.9 Gastro-esophageal reflux disease without esophagitis; E11.9 Type 2 diabetes mellitus without complications; I48.0 Paroxysmal atrial fibrillation; E66.01 Morbid (severe) obesity due to excess calories; J96.91 Respiratory failure, unspecified with hypoxia; J96.12 Chronic respiratory failure with hypercapnia; R07.9 Chest pain, unspecified; I10 Essential (primary) hypertension; E78.5 Hyperlipidemia, unspecified; F20.9 Schizophrenia, unspecified; F31.9 Bipolar disorder, unspecified; Z99.81 Dependence on supplemental oxygen; Z79.4 Long term (current) use of insulin; Z79.82 Long term (current) use of aspirin; Z79.899 Other long term (current) drug therapy; Z87.891 Personal history of nicotine dependence
CPT/HCPCS: 36415; 36600; 71045; 71046; 71275; 74018; 80048; 80053; 81001; 82375; 82805; 82948; 83050; 83735; 83880; 84484; 85025; 85027; 87070; 87205; 87426; 92610; 93005; 94640; 94762; 96365; 96366; 96367; 96372; 96375; 96376; 97110; 97116; 97161; 97166; 97530; 99285; A9270; C8929; C9803; G0378; J0456; J0696; J1650; J1815; J1956; J2920; J3475; J7512; Q9957; Q9967

== ENCOUNTER 2020-11-12 02:11 | Emergency (ER) | payer OTHER, SELFPAY ==
--- NOTE | ~2020-11-12 | XR_ITS ---
XR chest 2V DATE: 11/12/2020 03:01 INDICATION: Shortness of breath TECHNIQUE: AP and lateral views COMPARISON: 09/30/2020 AP and lateral views FINDINGS: Cardiomegaly. There is aortic calcification. No pulmonary infiltrate or consolidation, pu lmonary vascular congestion or pleural effusion or pneumothorax. Azygos lobe, normal anatomic varian t. IMPRESSION: Cardiomegaly Reviewed, dictated and finalized at location A. IMPRESSION: Cardiomegaly
--- NOTE | 2020-11-12 02:16 | ED.SOB ---
HPI - SOB/Dyspnea General Chief Complaint: Shortness of Breath/Dyspnea Stated Complaint: SOB Source: patient and EMS Mode of arrival: EMS Limitations: other (poor historian) History of Present Illness HPI Narrative: The patient is a 70-year-old female with a past medical history of GERD, hypertension, CHF, atrial fibrillation, asthma, chronic respiratory failure on 3-5L Oxygen via NC, who presents for evaluation of dyspnea. Patient reports dyspnea with exertion. No current productive cough. Patient reports room spinning sensation at time, but none currently. No headache or vision changes. She denies fever, but does report chills. No abdominal pain or constipation. She has had lower extremity swelling which is chronic for her. She denies calf swelling or edema. She denies chest pain or pleuritic pain. Patient does walk with a walker. Patient does not fully explain why she is here for evaluation in the ER. Per EMS report, staff at the facility was concerned that patient had worsening dyspnea. However, she was not hypoxic from baseline for nursing staff or EMS. Per chart review, last ECHO 09/29, EF 60%. Related Data Home Medications Medication Instructions Recorded Confirmed Flovent HFA 1 puff INHALATION Q12H 03/14/20 11/04/20 Lantus Solostar U-100 Insulin 55 unit SUBCUT QAM 03/14/20 11/04/20 Lantus Solostar U-100 Insulin 80 unit SUBCUT HS 03/14/20 11/04/20 acetaminophen 325 mg PO Q4-6H PRN 03/14/20 11/04/20 benzonatate 100 mg PO TID 03/14/20 11/04/20 benztropine 1 mg PO BID 03/14/20 11/04/20 cholecalciferol (vitamin D3) 125 mcg PO DAILY 03/14/20 11/04/20 [Vitamin D3] diphenhydramine HCl [Benadryl] 50 mg PO HS PRN 03/14/20 11/04/20 docusate sodium 100 mg PO BID 03/14/20 11/04/20 famotidine [Pepcid] 20 mg PO HS 03/14/20 11/04/20 hydroxyzine pamoate 25 mg PO HS 03/14/20 11/04/20 insulin lispro See Rx Instructions .ROUTE .COMPLEX 03/14/20 11/04/20 ipratropium-albuterol 3 ml INHALATION Q6H PRN 03/14/20 11/04/20 loperamide 2 mg PO Q6H PRN 03/14/20 11/04/20 meclizine 25 mg PO TID PRN 03/14/20 11/04/20 montelukast 10 mg PO HS 03/14/20 11/04/20 nifedipine 30 mg PO DAILY 03/14/20 11/04/20 olanzapine 15 mg PO HS 03/14/20 11/04/20 omeprazole 20 mg PO DAILY 03/14/20 11/04/20 potassium chloride 20 meq PO DAILY 03/14/20 11/04/20 pravastatin 40 mg PO HS 03/14/20 11/04/20 risperidone 6 mg PO HS 03/14/20 11/04/20 sodium chloride 1,000 mg PO DAILY 03/14/20 11/04/20 tetrahydrozoline 1 drp EACH EYE BID PRN 03/14/20 11/04/20 furosemide 40 mg PO BID 09/26/20 11/04/20 hydrocortisone 2.5 applic TOPICAL BID PRN 09/26/20 11/04/20 lisinopril 5 mg PO DAILY 09/26/20 11/04/20 losartan 100 mg PO DAILY 09/26/20 11/04/20 nystatin [Nystop] 1 applic TOPICAL TID PRN 09/26/20 11/04/20 triamcinolone acetonide 0.1 applic TOPICAL DAILY PRN 09/26/20 11/04/20 Allergies Allergy/AdvReac Type Severity Reaction Status Date / Time No Known Allergies Allergy Verified 11/05/20 09:08 Review of Systems Review of Systems: CONSTITUTIONAL: Denies fever, reports chills EYES: Denies visual changes, redness, or discharge. ENT: Denies rhinorrhea, congestion, sore throat, or otalgia. CARDIOVASCULAR: Denies chest pain, palpitations, chronic lower extremity edema RESPIRATORY: Denies cough, reports dyspnea, denies current dyspnea GASTROINTESTINAL: Denies abdominal pain, nausea, vomiting, or diarrhea. GENITOURINARY: Denies dysuria or hematuria. SKIN: Denies rash or itching. MUSCULOSKELETAL: Denies back pain, joint pain, or myalgia. NEUROLOGIC: Denies headache, numbness, or weakness. Reports dizziness PMFSH Past Medical History Medical History Asthma Back pain COPD (chronic obstructive pulmonary disease) Diabetes GERD (gastroesophageal reflux disease) Hyperlipemia Hypertension Rash of both hands Burning macular rash of both hands and forearms. Not responding to usual treatment. Distribution suggests contact by normal liliam
--- NOTE | 2020-11-12 02:17 | ECG_ITS ---
Measurements Intervals [place] Rate: 87 P: TN: 0 QRS: -55 QRSD: 98 T: -16 QT: 386 QTc: 465 Interpretive Statements SINUS OR ECTOPIC ATRIAL RHYTHM ATRIAL PREMATURE COMPLEXES LEFT AXIS DEVIATION POOR R WAVE PROGRESSION, ANTERIOR LEADS INFERIOR INFARCT, AGE INDETERMINATE BASELINE ARTIFACT- I, II, III, AVR, AVL, AVF, V1-V3 ABNORMAL ECG Electronically Signed On 11-12-2020 6:15:52 CDT by Ignacio Claire D.O.
[2020-11-12 02:21] VITALS: PULSE 88; RESP 22; TEMP 36.6
[2020-11-12 03:00] VITALS: O2SAT 95
[2020-11-12 03:01] LABS: INR 0.9
[2020-11-12 03:02] LABS: Partial Thromboplastin Time 45.7 SECONDS (22.3-36.8)
[2020-11-12 03:03] LABS: Basophils Percent Auto 0.4 % (0.2-1.2); Eosinophils Absolute Auto 0.2 K/mm3 (0-0.3); Eosinophils Percent Auto 2.1 % (0-4.4); Hemoglobin 12.7 g/dL (12.0-15.0); Immature Granulocyte Absolute 0.02 K/mm3 (0.00-0.031); Immature Granulocyte Percent A 0.3 % (0-0.5); Lymphocytes Absolute Auto 1.36 K/mm3 (0.9-3.2); Mean Corpuscular Hemoglobin 26.2 pg (26-34); Mean Corpuscular Volume 84.5 fl (80-100); Mean Platelet Volume 10.3 fl (7.4-10.4); Monocytes Absolute Auto 0.7 K/mm3 (0.1-0.6); Monocytes Percent Auto 8.6 % (2.6-8.5); Neutrophils Absolute Auto 5.7 K/mm3 (1.3-6.7); Neutrophils Percent Auto 71.6 % (45.5-73.1); Platelet Count Result 218 k/mm3 (150-375); Red Blood Count 4.85 M/mm3 (4.2-5.4); Red Cell Distribution Width 14.6 % (11.5-14.5)
[2020-11-12 03:05] LABS: Alanine Aminotransferase 17 U/L (4-35); Albumin Level 4.3 g/dL (3.5-5.1); Alkaline Phosphatase 98 U/L (38-126); Anion Gap 8 mmol/L (8-16); Aspartate Amino Transferase 16 U/L (14-36); Bilirubin,Total 0.5 mg/dL (0.2-1.3); Blood Urea Nitrogen 14 mg/dL (7-17); Calcium 9.5 mg/dL (8.4-10.2); Carbon Dioxide 35 mmol/L (22-30); Chloride 93 mmol/L (98-107); Estimated CRCL calculation 81 ml/min; Estimated Glomerular Filt Rate > 60; Glucose 150 mg/dL (65-110); Lactic Acid Reflex 1.6 mmol/L (0.7-2.1); Potassium 3.5 mmol/L (3.4-5.0); Sodium 136 mmol/L (137-145)
[2020-11-12 03:12] VITALS: BP 129/84; PULSE 81; RESP 20; O2SAT 100
[2020-11-12 03:16] LABS: NT Pro B Type Natriuretic Pept 21 pg/mL (5-100); Troponin I < 0.012 ng/mL (0.000-0.034)
[2020-11-12 04:38] VITALS: BP 111/78; PULSE 82; RESP 20; O2SAT 98
[2020-11-12 05:25] LABS: Add Urine Microscopic? NO; Appearance Urine Clear (Clear); Bilirubin Urine Negative (Negative); Blood Urine Negative (Negative); Color Urine Yellow (Yellow); Glucose Urine UA Negative (Negative); Ketones Urine Negative (Negative); Leukocyte Esterase Ur Negative LEU/UL (Negative); Nitrate Urine Negative (Negative); Protein Urine Negative (Negative); Urobilinogen Urine Negative mg/dL (<2.0)
--- NOTE | 2020-11-12 05:57 | PC.NURSE ---
called [facility] to request transport. ETA [phone]
--- NOTE | 2020-11-12 05:59 | PC.NURSE ---
[facility] called. Evelyne just got a 911 call and will delay the ETA here.
--- NOTE | 2020-11-12 07:20 | PC.NURSE ---
pt assisted in dressing. waiting ems arrival for transport back to [facility]
[2020-11-12 08:28] VITALS: RESP 16
== END 2020-11-12 08:28 | disposition home or self-care (01) ==
PROVIDERS: Emergency Provider Emergency Medicine
DX: R06.02 Shortness of breath (principal); I13.0 Hypertensive heart and chronic kidney disease with heart failure and stage 1 through stage 4 chronic kidney disease, or unspecified chronic kidney disease; I50.9 Heart failure, unspecified; N18.9 Chronic kidney disease, unspecified; E11.22 Type 2 diabetes mellitus with diabetic chronic kidney disease; Z79.4 Long term (current) use of insulin; I48.91 Unspecified atrial fibrillation; Z99.81 Dependence on supplemental oxygen; Z87.891 Personal history of nicotine dependence
CPT/HCPCS: 36415; 71046; 80053; 81003; 83605; 83880; 84484; 85025; 85610; 85730; 87040; 93005; 99284

== ENCOUNTER 2020-11-29 08:22 | Outpatient (CLI) | payer OTHER, SELFPAY ==
--- NOTE | 2020-11-29 13:58 | WPDPFTINT ---
PFT Procedure Performed PFT Procedure Performed Spirometry with Pre/Post Bronchodilator Plethysmography (Lung Vol) Diffusing Cap (DLCO) Flow Vol Loop PFT Interpretation This is a pulmonary function test with pre and post-bronchodilator spirometry, plethysmography and diffusing capacity. The test was performed and results interpreted in accordance with the 2019 and 2005 ATS/ERS Task Force guidelines respectively using the Global Lung Function Initiative-2012 reference equations. Patient demonstrated good effort and cooperation. Reproducibility criteria were met. The quality of the pre bronchodilator spirometry maneuver was Grade A and post bronchodilator spirometry maneuver was Grade A. Of note the patient had difficulty with all the testing due to cognitive ability. Findings: Spirometry: The contour the inspiratory and expiratory flow tracing are normal. The pre bronchodilator FVC is 0.96 L, 37% predicted. The pre bronchodilator FEV1 is 0.82 L, 40% predicted. The FEV1: FVC ratio was 85%. The post bronchodilator FVC is 0.93 L, representing a 3% decrease. The post bronchodilator FEV1 is 0.76 L, representing a 7% decrease. Puff plethysmography: The total lung capacity is 2.74 L, 59% predicted. Functional residual capacity is 1.93 L, 74% predicted. The residual volume is 1.41 L, 70% predicted. Diffusing capacity. The absolute diffusion capacity is 9.8, 50% predicted. The diffusing capacity corrected for alveolar volume is 6.57, 148% predicted. Impression: There is a severe restrictive ventilatory abnormality. The spirometry is normal without evidence of an obstructive abnormality. There is no significant improvement after inhaling a single dose of albuterol. The absolute diffusing capacity is moderately decreased and increased when corrected for alveolar volume. There are no prior studies for comparison
== END 2020-11-29 08:23 | disposition home or self-care (01) ==
LOC: ANHPFT 08:23
PROVIDERS: Visit Provider Internal Medicine Pulmonary Disease
DX: R06.00 Dyspnea, unspecified (principal); R94.2 Abnormal results of pulmonary function studies
CPT/HCPCS: 94060; 94726; 94729

== ENCOUNTER 2020-12-12 20:00 | Outpatient (CLI) | payer OTHER, SELFPAY ==
--- NOTE | 2021-01-06 16:15 | WPDSLEEPSTUD ---
Sleep Study Date of Study: 12/12/20 <Katelyn Patel DO - Last Filed: 01/06/21 17:32> Ordering Provider: Aldo Beck MD <Katelyn Patel DO - Last Filed: 01/06/21 17:32> Interpreting Physician: Katelyn Patel DO <Katelyn Patel DO - Last Filed: 01/06/21 17:32> Sleep Study Type: Split Polysomnogram <Katelyn Patel DO - Last Filed: 01/06/21 17:32> Height: 1.55 m <Katelyn Patel DO - Last Filed: 01/06/21 17:32> Weight: 97.522 kg <Katelyn Patel DO - Last Filed: 01/06/21 17:32> Body Mass Index: 40.6 <Katelyn Patel DO - Last Filed: 01/06/21 17:32> Neck Circumference (inches): 18 <Katelyn Patel DO - Last Filed: 01/06/21 17:32> [place]: 9 <Katelyn Patel DO - Last Filed: 01/06/21 17:32> Reason for Sleep Study Previously diagnosed TAMARA but not on PAP currently. Admitted to the hospital for shortness of breath. <Katelyn Patel DO - Last Filed: 01/06/21 17:32> Sleep History The patient is a 70-year-old female with hypertension, diabetes, asthma, COPD on 3 L via nasal cannula, schizophrenia, bipolar disorder and previously diagnosed TAMARA that had a split study ordered by her psychological aide. The patient was admitted to [facility] from September 26, 2020 test October 02, 2020 for shortness of breath, atrial fibrillation with rapid ventricular response and diffuse infiltrates on chest x-ray. The patient was previously using CPAP but states that she was told to just use oxygen instead. The patient denies awakening from sleep short of breath. She denies awakening at night with heartburn, belching or cough. She denies snoring loudly enough that others complain. She denies having trouble sleeping when she has a cold. She denies waking up gasping for air throughout the night. She denies sweating excessively at night. She denies noticing heart palpitations or irregular heartbeats during the night. She denies falling asleep during the day and while driving. She denies sleep paralysis, cataplexy and hypnagogic / hypnopompic hallucinations. She denies having trouble at school or work due to sleepiness. She denies having nightmares. She denies feeling sad, depressed or anxious. She denies noticing parts of her body jerking kicking throughout the night. She denies crawling and aching feelings in her legs as well as leg pain during the night. She denies grinding her teeth during sleep and awakening with jaw pain in the morning. She denies being bothered by pain during the day and be awakened by pain during the night. She denies waking up feeling stiff in the morning with sore and achy muscles. *The patient denies having any sleep issues because Misbah healed her and gave her 2 new lungs. The patient states that she goes to bed at midnight on both weekdays and weekends. It does not take her long to fall asleep. She will wake up once throughout the night to use the restroom. She will wake up at 6:00 a.m. on both weekdays and weekends. She typically gets 9 hours of sleep per night. She does not consume any caffeinated beverages within 2 hours of bedtime. She does not engage in physical exercise before bedtime. She will watch television before falling asleep. She does not take naps in the afternoon or the evening. She use to smoke. She does consume caffeine daily. She denies alcohol and recreational drug use. <Katelyn Patel DO - Last Filed: 01/06/21 17:32> [facility] Past Medical History Medical History: Medical History Asthma Back pain COPD (chronic obstructive pulmonary disease) Diabetes GERD (gastroesophageal reflux disease) Hyperlipemia Hypertension Rash of both hands Burning macular rash of both hands and forearms. Not responding to usual treatment. Distribution suggests contact by normal daily activities such as hand washing. Schizophreni
[2021-01-06 16:32] VITALS: BMI 40.6
== END 2020-12-13 08:01 | disposition home or self-care (01) ==
LOC: ANHCSM 12-13 07:51
PROVIDERS: PCP Pediatrics Neonatal-Perinatal Medicine; Visit Provider Internal Medicine Pulmonary Disease
DX: G47.10 Hypersomnia, unspecified (principal); G47.33 Obstructive sleep apnea (adult) (pediatric); I48.91 Unspecified atrial fibrillation
CPT/HCPCS: 95811

== ENCOUNTER 2021-06-24 08:38 | Outpatient (CLI) | payer OTHER, SELFPAY ==
--- NOTE | ~2021-06-24 | MM_ITS ---
EXAMINATION: MM screening [facility] BI w diamond HISTORY: Screening mammogram TECHNIQUE: Craniocaudal and mediolateral oblique 3-D tomosynthesis images were obtained and synthetic 2-D images were generated. CAD analysis was submitted and interpreted. COMPARISON: 06/07/2020, 10/25/2015 BREAST PARENCHYMAL COMPOSITION: There are scattered areas of fibroglandular density. FINDINGS: Scattered benign-appearing calcifications are present. There is no suspicious mass, calcifi cation, or architectural distortion to suggest malignancy in either breast. There has been no suspici ous interval change. IMPRESSION: 1. No mammographic evidence of malignancy. 2. Recommend routine screening mammography in one year. BI-RADS Category 2: Benign finding(s). Reviewed, dictated and finalized at location A.
== END 2021-06-24 08:39 | disposition home or self-care (01) ==
DX: Z12.31 Encounter for screening mammogram for malignant neoplasm of breast (principal)
CPT/HCPCS: 77063; 77067

== ENCOUNTER 2021-07-23 09:26 | Outpatient (CLI) | payer OTHER, SELFPAY ==
--- NOTE | 2021-07-23 | ECHO_ITS ---
Patient Info Name: Nona Florez Age: 70 years : 1950 Gender: Female Ht: 61 in Wt: 202 lbs BSA: 2.03 m2 HR: 89 bpm BP: 96 / 52 mmHg Heart Rhythm: Sinus Rhythm Exam Date: 07/23/2021 10:18 AM Exam Location: [facility] Pulmonary Patient Status: Outpatient Admit Date: 07/23/2021 Staff Ordering Physician: Sarai Nicole Vertica Architect: Jacob العراقي, MARK, RT Attending Provider: Sarai Nicole Exam Type: CA echo doppler color flow Study Info Indications R06.02 - Shortness of breath Complete two-dimensional, color flow and Doppler transthoracic echocardiogram is performed. Strain analysis performed. Summary 1. Complete two-dimensional, color flow and Doppler transthoracic echocardiogram is performed. 2. Global longitudinal strain is borderline at -17 %. 3. Left ventricular chamber dimension is normal. 4. Left ventricular systolic function is normal, estimated at 60-65%. 5. There is mildly increased left ventricular wall thickness. 6. The left ventricular diastolic function is grade I diastolic dysfunction. 7. Left atrial chamber dimension is mildly enlarged. 8. There is mild mitral valve regurgitation. 9. The mitral valve annulus is mildly calcified. Left Ventricle Global longitudinal strain is borderline at -17 %. Left ventricular chamber dimension is normal. Left ventricular systolic function is normal, estimated at 60-65%. There is mildly increased left ventricular wall thickness. The left ventricular diastolic function is grade I diastolic dysfunction. Right Ventricle Right ventricular chamber dimension is normal. Right ventricular systolic function is normal. Left Atria Left atrial chamber dimension is mildly enlarged. Right Atria Right atrial chamber dimension is normal. Atrial Septum Intact interatrial septum visualized by color flow imaging. Aortic Valve The aortic valve is trileaflet. There is mild aortic valve sclerosis. There is no aortic valve stenosis. There is trace aortic valve regurgitation. Pulmonic Valve The pulmonic valve is normal. There is no pulmonic valve stenosis. There is trace pulmonic regurgitation. Mitral Valve There is no mitral valve stenosis. There is mild mitral valve regurgitation. The mitral valve annulus is mildly calcified. Tricuspid Valve The tricuspid valve leaflets are normal. There is no significant tricuspid valve stenosis. There is trace tricuspid valve regurgitation. Pericardium/Pleural The pericardium appears normal. There is trivial pericardial effusion. Inferior Vena Cava Normal inferior vena cava with >50% collapse upon inspiration consistent with normal right atrial pressure, 5 mmHg. Aorta The aortic root size at the sinus of Valsalva is normal. Left Ventricular Outflow Tract Name Value Normal LVOT 2D LVOT Diameter 2.0 cm LVOT Doppler LVOT Peak Gradient 7 mmHg LVOT Mean Gradient 4 mmHg LVOT VTI 28 cm LVOT VTI/AV VTI Ratio 0.9 LVOT Stroke Volume 91 ml
== END 2021-07-23 09:27 | disposition home or self-care (01) ==
DX: R06.02 Shortness of breath (principal); R07.9 Chest pain, unspecified
CPT/HCPCS: 93306

== ENCOUNTER 2022-06-04 14:51 | Day surgery (SDC) | payer OTHER, SELFPAY ==
[2022-06-02 09:17] VITALS: BMI 36.3
--- NOTE | 2022-06-02 09:30 | SUR.PREOP ---
Spoke with Nurse Luisa @ [facility] regarding pre-op information. Pt will not be given Elaquis starting today until after procedure. Pt will be NPO and not given any diuretics or diabetic meds day of procedure. Facility to fax current med list and medical history today.
[2022-06-04] VITALS (11 sets, daily range): BP systolic 90–130; BP diastolic 47–70; PULSE 72–95; RESP 12–20; TEMP 36.7; O2SAT 98–100; BMI 35.2
[2022-06-04 08:20] LABS: Basophils Absolute Auto 0.1 K/mm3 (0.0-0.1); Basophils Percent Auto 0.6 % (0.2-1.2); Eosinophils Absolute Auto 0.3 K/mm3 (0-0.3); Eosinophils Percent Auto 3.9 % (0-4.4); Hematocrit 35.5 % (37.0-47.0); Hemoglobin 11.3 g/dL (12.0-15.0); Immature Granulocyte Absolute 0.02 K/mm3 (0.00-0.031); Immature Granulocyte Percent A 0.2 % (0-0.5); Lymphocytes Percent Auto 26.7 % (18.3-44.2); Mean Corpuscular HGB Conc 31.8 g/dl (32-36); Mean Corpuscular Hemoglobin 27.2 pg (26-34); Mean Corpuscular Volume 85.5 fl (80-100); Mean Platelet Volume 9.9 fl (7.4-10.4); Monocytes Absolute Auto 0.5 K/mm3 (0.1-0.6); Neutrophils Absolute Auto 5.2 K/mm3 (1.3-6.7); Neutrophils Percent Auto 62.6 % (45.5-73.1); Platelet Count Result 248 k/mm3 (150-375); Red Blood Count 4.15 M/mm3 (4.2-5.4); Red Cell Distribution Width 12.5 % (11.5-14.5); White Blood Count 8.2 K/mm3 (4.5-10.0)
[2022-06-04 08:30] LABS: Anion Gap 4 mmol/L (8-16); Blood Urea Nitrogen 23 mg/dL (7-17); Calcium 9.3 mg/dL (8.4-10.2); Carbon Dioxide 35 mmol/L (22-30); Chloride 94 mmol/L (98-107); Estimated CRCL calculation 38 ml/min; Estimated Glomerular Filt Rate 44; Glucose 223 mg/dL (65-110); Potassium 4.5 mmol/L (3.4-5.0); Sodium 133 mmol/L (137-145)
--- NOTE | 2022-06-04 09:10 | WPDHPUPDATE1 ---
History and Physical Update Update Date/Time: 06/04/22 09:10 History and Physical has been reviewed, including an updated exam of the patient. There are NO changes in the patient's condition. Risks, benefits, and alternatives have been discussed and questions answered. Patient agrees to proceed with procedure.
--- NOTE | 2022-06-04 09:10 | WPDMODSED ---
Moderate Sedation Note-Pt Data Patient Data Diagnosis: Abnormal stress test Present Complaint: Abnormal stress test Procedure to be performed/Plan: Coronary angiography, LHC, +/- PCI Allergies Allergy/AdvReac Type Severity Reaction Status Date / Time dexbrompheniramine Allergy Rash Verified 06/04/22 08:01 Home Medications Medication Instructions Recorded Confirmed Type acetaminophen 325 mg tablet 325 mg PO Q4-6H PRN Fever Or Pain 03/14/20 06/04/22 History benztropine 1 mg tablet 1 mg PO BID 03/14/20 06/04/22 History cholecalciferol (vitamin D3) 125 125 mcg PO DAILY 03/14/20 06/04/22 History mcg (5,000 unit) tablet (Vitamin D3) docusate sodium 100 mg capsule 100 mg PO BID PRN Constipation 03/14/20 06/04/22 History hydroxyzine pamoate 25 mg capsule 25 mg PO BID 03/14/20 06/04/22 History insulin glargine 100 unit/mL (3 20 unit subcut BID 03/14/20 06/04/22 History mL) subcutaneous pen (Lantus Solostar U-100 Insulin) insulin lispro 100 unit/mL See Rx Instructions .Route .COMPLEX 03/14/20 06/04/22 History subcutaneous solution ipratropium 0.5 mg-albuterol 3 mg 3 ml inhalation Q6H PRN Wheezing 03/14/20 06/04/22 History (2.5 mg base)/3 mL nebulization soln loperamide 2 mg capsule 2 mg PO Q6H PRN Loose Stool 03/14/20 06/04/22 History meclizine 25 mg tablet 25 mg PO TID PRN Vertigo 03/14/20 06/04/22 History montelukast 10 mg tablet 10 mg PO HS 03/14/20 06/04/22 History nifedipine 30 mg tablet,extended 30 mg PO DAILY 03/14/20 06/04/22 History release 24 hr olanzapine 15 mg tablet 15 mg PO HS 03/14/20 06/04/22 History omeprazole 20 mg capsule,delayed 20 mg PO DAILY 03/14/20 06/04/22 History release potassium chloride 20 mEq 20 meq PO DAILY 03/14/20 06/04/22 History tablet,extended release risperidone 2 mg tablet 3 mg PO HS 03/14/20 06/04/22 History sodium chloride 1 gram tablet 1,000 mg PO DAILY 03/14/20 06/04/22 History tetrahydrozoline 0.05 % eye drops 1 drp EACH EYE BID PRN Dry Eyes 03/14/20 06/04/22 History furosemide 20 mg tablet 40 mg PO BID 09/26/20 06/04/22 History losartan 100 mg tablet 100 mg PO DAILY 09/26/20 06/04/22 History apixaban 5 mg tablet (Eliquis) 5 mg PO Q12HR 30 days #60 tabs 10/02/20 06/04/22 Rx aspirin 81 mg chewable tablet 81 mg PO DAILY 05/26/22 06/04/22 History budesonide-formoterol HFA 160 2 puff inhalation BID PRN Allergy 05/26/22 06/04/22 History mcg-4.5 mcg/actuation aerosol Symptoms inhaler (Symbicort) deutetrabenazine 6 mg tablet 6 mg PO BID 05/26/22 06/04/22 History (Austedo) fluticasone propionate 50 2 spray intranasal DAILY PRN 05/26/22 06/04/22 History mcg/actuation nasal Allergy Symptoms spray,suspension loratadine 10 mg tablet 10 mg PO DAILY 05/26/22 06/04/22 History nitroglycerin 0.4 mg sublingual 0.4 mg sublingual Q5-15M PRN Chest 05/26/22 06/04/22 History tablet (Nitrostat) Pain ropinirole 0.25 mg tablet 0.25 mg PO DAILY 05/26/22 06/04/22 History rosuvastatin 20 mg tablet 20 mg PO HS 05/26/22 06/04/22 History silver sulfadiazine 1 % topical See Rx Instructions .Route 05/26/22 06/04/22 History cream (SSD) .COMPLEX PRN Skin Irritation spironolactone 25 mg tablet 12.5 mg PO DAILY 05/26/22 06/04/22 History BenGay 3 oz topical DAILY PRN Pain 06/02/22 06/04/22 History Mucinex 600 mg PO BID 06/02/22 06/04/22 History Preparation H 1 syringe RECTAL QID PRN 06/02/22 06/04/22 History Hemorrhoids albuterol sulfate 90 mcg/actuation 2 puff inhalation Q4-6H PRN 06/02/22 06/04/22 History aerosol inhaler Shortness Of Breath Or Wheezing albuterol sulfate 90 mcg/actuation inhalation 06/02/22 History aerosol inhaler ezetimibe 10 mg tablet 10 mg DAILY 06/02/22 06/04/22 History glucagon 1 mg solution for See Rx Instructions .Route 06/02/22 06/04/22 History injection .COMPLEX PRN Hypoglycemia ipratropium-albuterol See Rx Instructions .Route 06/02/22 06/04/22 History .COMPLEX PRN Shortness Of Breath Or Wheezing metformin 1,000 mg tablet 1,000 m
--- NOTE | 2022-06-04 09:11 | WPDCARDPROC ---
Cardiac Cath Procedure Note Date of procedure:: 06/04/22 Performing physician:: CATHETERIZATION LABORATORY REPORT Procedure Date: 06/04/2022 Shell Mold Bonder: Digna Gibson M.D., [facility]? Referring Physician: Dr. Abiel Fernandes ? Anesthesia: Versed and Fentanyl were ordered and given in my presence at 09:31, procedure ended at 10:13. Supervision of nurse monitored moderate sedation with Versed and Fentanyl was provided for 42 minutes. Total of Versed 1mg and Fentanyl 25mcg were administered by the Garage Supervisor RN Edelmira Kauffman. Pre-op Diagnosis: Coronary artery disease Post-op Diagnosis: 1. Nonobstructive coronary artery disease 2. Left ventricular end-diastolic pressure of 19mmHg Procedure(s): 1. Moderate sedation 2. Ultrasound-guided access of the right radial artery and right common femoral artery 3. Coronary angiography 4. Left heart cath 5. Angioseal closure of the right common femoral artery Access Site: Right radial artery Right common femoral artery Brief History and Clinical Indications: Patient is a 71-year-old female with atrial fibrillation who is referred for [facility] for anginal symptoms in the setting of abnormal stress test. All risks, benefits and alternatives to left heart catheterization with or without percutaneous coronary intervention was discussed at length with the patient and her guardian (written consent obtained from the guardian). Risk of complications including but not limited to bleeding, infection, arrhythmia, stroke, worsening kidney function, blood loss, groin hematoma, limb loss, emergency coronary artery bypass grafting, and even were discussed with the patient and guardian and all questions were answered. The patient and guardian understood and wished to proceed. Time out called, patient name, date of , medical record number, allergies, procedure performed, identify Shell Mold Bonder, patient and staff member concurred with accurate data, procedure carried on. Findings: LEFT HEART CATHETERIZATION FINDINGS: 1. Left main: The left main coronary artery is widely patent without any significant obstructive disease. 2. Left anterior descending: The LAD has mild luminal irregularities without any significant obstructive angiographic disease. The LAD wraps the apex. The first diagonal branch has mild 10-20% stenosis. 3. Left circumflex: The left circumflex artery and the main marginal branches have mild luminal irregularities without any significant obstructive angiographic disease. The left circumflex is a co-dominant vessel. 4. Right coronary artery: The RCA is a co-dominant vessel. The ostium of the RCA has mild 30-40% stenosis. Remainder of the RCA has mild luminal irregularities without any significant obstructive angiographic disease. 5. Left ventricle: A. End-diastolic pressure 19mmHg. B. LV gram deferred. C. No significant gradient across aortic valve on catheter pullback. Description of Procedure: Informed consent signed and placed in the chart. Patient transferred to chemical laboratory technician room. Prepped and draped in usual sterile fashion. 2% lidocaine injected subcutaneously in right wrist area. 22-gauge venipuncture catheter used to access the right radial artery with the Seldinger technique. 6-FR slender sheath placed in right radial artery. Nitroglycerine and Verapamil were given intraarterial through the sheath. Versacore wire advanced under fluoroscopy 5F Tig 4 diagnostic catheter engaged in the Right Coronary Artery. Multiple orthogonal angiogram obtained and reviewed. Due to aorta tortuosity, unable to engage the left main from right radial access, therefore, femoral access pursued. 2% lidocaine in right groin area. Micropuncture needle used to access right common femoral artery with Seldinger technique under fluoroscopic and ultrasound guidance. J wire advanced, micropuncture cannula placed. Right iliofemoral angiogram performed, access confirmed and micropuncture cannula exchanged for
--- NOTE | 2022-06-04 12:30 | SUR.PHASEII ---
Assisted to recliner. Tolerated well. Dolly rt wrist d/i. Dolly rt groin d/i. Meal served. Visitor present.
--- NOTE | 2022-06-04 13:18 | SUR.PHASEII ---
D/C instructions reviewed with pt and her almond blancher hand. Copy to almond blancher hand. Angioseal brochure and care reviewed with pt and almond blancher hand. Card to Counseling Director.
--- NOTE | 2022-06-04 14:53 | SUR.PHASEII ---
Pt was d/c today at 1339 not current time due to charting/registration issues.
== END 2022-06-04 14:52 | disposition home or self-care (01) ==
PROVIDERS: Visit Provider Internal Medicine
PROC: 4A023N7 Measurement of Cardiac Sampling and Pressure, Left Heart, Percutaneous Approach (ICD-10-PCS; CPT 93452; principal; 2022-06-04 10:00)
PROC: (CPT 36140; 2022-06-04 10:00)
DX: I25.10 Atherosclerotic heart disease of native coronary artery without angina pectoris (principal); R94.39 Abnormal result of other cardiovascular function study; I10 Essential (primary) hypertension; E10.9 Type 1 diabetes mellitus without complications; J44.9 Chronic obstructive pulmonary disease, unspecified; E78.5 Hyperlipidemia, unspecified; K21.9 Gastro-esophageal reflux disease without esophagitis; Z79.4 Long term (current) use of insulin; Z79.51 Long term (current) use of inhaled steroids; Z79.01 Long term (current) use of anticoagulants; Z79.82 Long term (current) use of aspirin; Z79.84 Long term (current) use of oral hypoglycemic drugs
CPT/HCPCS: 36140; 36415; 80048; 85025; 93458; A9270; C1760; C1769; C1887; C1894; G0269; J1644; J7040

== ENCOUNTER 2022-08-20 09:43 | Outpatient (CLI) | payer OTHER, SELFPAY ==
--- NOTE | ~2022-08-20 | MM_ITS ---
EXAMINATION: MM screening [facility] BI w diamond HISTORY: Screening mammogram TECHNIQUE: Craniocaudal and mediolateral oblique 3-D tomosynthesis images were obtained and synthetic 2-D images were generated. CAD analysis was submitted and interpreted. COMPARISON: 06/24/2021, 06/07/2020, 10/25/2015 bilateral screening mammogram examinations BREAST PARENCHYMAL COMPOSITION: There are scattered areas of fibroglandular density. FINDINGS: Again noted are scattered bilateral benign calcifications. There is no evidence of suspicio us mass, calcification, or architectural distortion to suggest malignancy in either breast. There has been no suspicious interval change. IMPRESSION: 1. No mammographic evidence of malignancy. 2. Recommend routine screening mammography in one year. BI-RADS Category 2: Benign finding(s). Reviewed, dictated and finalized at location A.
== END 2022-08-20 09:44 | disposition home or self-care (01) ==
PROVIDERS: Visit Provider Internal Medicine
DX: Z12.31 Encounter for screening mammogram for malignant neoplasm of breast (principal)
CPT/HCPCS: 77063; 77067

== ENCOUNTER 2023-01-22 10:55 | Outpatient (CLI) | payer OTHER, SELFPAY ==
--- NOTE | ~2023-01-22 | US_ITS ---
EXAMINATION: US renal BI DATE: 01/22/2023 14:02 INDICATION: Hypertension with stage I chronic kidney disease TECHNIQUE: Multiple ultrasound grayscale images of the kidneys were obtained. COMPARISON: None. FINDINGS: The right kidney measures 10.6 x 5.6 x 5.9 cm. The left kidney measures 1.3 x 5.7 x 4.8 cm. The kidne ys demonstrate normal echogenicity. There is no hydronephrosis in either kidney. No stones identifie d. The bladder is normal. IMPRESSION: 1. Normal kidneys without hydronephrosis. Reviewed, dictated and finalized at location A. 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
== END 2023-01-22 10:56 | disposition home or self-care (01) ==
PROVIDERS: Visit Provider Internal Medicine Nephrology
DX: I12.9 Hypertensive chronic kidney disease with stage 1 through stage 4 chronic kidney disease, or unspecified chronic kidney disease (principal); E11.22 Type 2 diabetes mellitus with diabetic chronic kidney disease; N18.32 Chronic kidney disease, stage 3b
CPT/HCPCS: 76775

== ENCOUNTER 2023-10-19 10:14 | Outpatient (CLI) | payer OTHER, SELFPAY ==
--- NOTE | ~2023-10-19 | MM_ITS ---
EXAMINATION: MM screening [facility] BI w diamond HISTORY: Screening mammogram TECHNIQUE: Craniocaudal and mediolateral oblique 3-D tomosynthesis images were obtained and synthetic 2-D images were generated. CAD analysis was submitted and interpreted. COMPARISON: 08/20/2022, 06/24/2021, 06/07/2020 BREAST PARENCHYMAL COMPOSITION:Not Dense. There are scattered areas of fibroglandular density. FINDINGS: Stable lower left breast densities. No suspicious mass, calcification, or architectural dis tortion are identified in either breast to suggest malignancy. There has been no suspicious interval change. IMPRESSION: No mammographic evidence of malignancy. Recommend routine screening mammography in one year. BI-RADS Category 2: Benign finding(s). Reviewed, dictated and finalized at location .
== END 2023-10-19 10:15 | disposition home or self-care (01) ==
LOC: ANHIMG 10:15
PROVIDERS: Visit Provider Internal Medicine
DX: Z12.31 Encounter for screening mammogram for malignant neoplasm of breast (principal)
CPT/HCPCS: 77063; 77067

== ENCOUNTER 2024-11-10 09:03 | Outpatient (CLI) | payer OTHER, SELFPAY ==
--- NOTE | ~2024-11-10 | MM_ITS ---
EXAMINATION: MM screening anne BI w diamond HISTORY: Screening TECHNIQUE: Craniocaudal and mediolateral oblique 3-D tomosynthesis images were obtained and synthetic 2-D images were generated. CAD analysis was submitted and interpreted. COMPARISON: Comparison to multiple prior studies sequentially, with oldest reviewed study dated 10/25/2015. BREAST PARENCHYMAL COMPOSITION: Not Dense. The breasts are almost entirely fatty. FINDINGS: There is no evidence of suspicious mass, calcification, or architectural distortion to suggest malignancy in either breast. There has been no suspicious interval change. IMPRESSION: 1. No mammographic evidence of malignancy. 2. Recommend routine screening mammography in one year. BI-RADS Category 1: Negative Reviewed, dictated and finalized at location B.
--- OUTSIDE RECORDS SUMMARY | 2024-11-10 09:13 | XMS_ITS | Clinical Summary ---
Author Organization [facility] Address [address] [place] [address] Care Team Providers Care Head Sulfide Operator Name Role Phone Bill Jacques MD Primary Care Provider [phone] Source Comments [facility],non-owned Affiliates and Associated Physician Practices is amultiple site organization consisting of ambulatory clinics and hospital sitesin [place], [place], [place] and [place]. This disclosure is being madepursuant to the Care Everywhere program and may not contain all information available regarding this patient. Last updated 17.[facility] Allergies Active Allergy Reactions Criticality Noted Date Comments Dexbrompheniramine-Pseudoeph Rash Low 013 Medications * This document contains information received from the source organization and may not represent a complete record from that organization. * Be aware that medications may not be up to date on this document. Alwaysverify current medications with the patient. olanzapine (ZYPREXA) 15 MG tablet Take 30 mg by mouth at bedtime. Active vitamin E (TOCOPHERYL) 400 UNIT tablet Take 400 Units by mouth 2 times daily. Active vitamin C (ASCORBIC ACID) 500 MG tablet Take 1,000 mg by mouth once daily. Active Probiotic Product ([employer] capsule Take 2 Caps by mouth once daily. Active losartan - hydrochlorothiazide (HYZAAR) 50-12.5 MG tabletIndications:Hype rtension Take 1 Tab by mouth once daily. Indications: High Blood Pressure Active triamcinolone acetonide (KENALOG) 0.1 % cream Apply to affected area 3 times daily. Except axilla for 3 weeks Active insulin lispro (HUMALOG) injectionIndications:T ype 1 Diabetes Mellitus Inject subcutaneously. Before meals and at bedtime per ssi LOW DOSE SS INSULIN 0 to 150 = 0 units 151 to 200 = 2 units 201 to 250 = 4 units 251 to 300 = 6 units 301 to 350 = 8 units 351 to 400 = 10 units Call MD if greater than 400 or less than 60 Indications: Insulin-Dependent Diabetes Active insulin glargine (LANTUS) injectionIndications:T ype 1 Diabetes Mellitus Inject 84 Units subcutaneously at bedtime. Indications: Insulin-Dependent Diabetes Active metFORMIN (GLUCOPHAGE) 500 MG tabletIndications:Type 2 Diabetes Mellitus Take 500 mg by mouth 2 times daily with morning and evening meal. Indications: Type 2 Diabetes Active pravastatin (PRAVACHOL) 40 MG tablet Take 40 mg by mouth at bedtime. Active multivitamin daily (THERAGRAN) tablet Take 1 Tab by mouth daily with food. Active B Complex Vitamins (VITAMIN B COMPLEX) TABS tablet Take 1 Tab by mouth once daily. Active olanzapine (ZYPREXA) 10 MG tabletIndications:Schi zophrenia Take 1 Tab by mouth once daily. Indications: Schizophrenia 30 Tab 0 013 Active meloxicam (MOBIC) 15 MG tablet 021 Active furosemide (LASIX) 40 MG tablet 021 Active benzonatate (TESSALON) 100 MG capsule 021 Active benztropine (COGENTIN) 1 MG tablet 021 Active FLOVENT HFA 220 MCG/ACT inhaler 021 Active meclizine (ANTIVERT) 25 MG tablet 021 Active losartan (COZAAR) 100 MG tablet 021 Active montelukast (SINGULAIR) 10 MG tablet Active hydrOXYzine pamoate (VISTARIL) 25 MG capsule 021 Active albuterol-ipratropium (DUO-NEB) 0.5-2.5 (3) MG/3ML nebulizer solution Active omeprazole (PRILOSEC) 20 MG capsule Active risperiDONE (RISPERDAL) 3 MG tablet Active FLUoxetine (PROZAC) 10 MG capsule Active NIFEdipine CR 24hr (ADALAT CC) 30 MG tablet Active famotidine (PEPCID) 20 MG tablet Active albuterol (PROVENTIL;VENTOLIN) (2.5 MG/3ML) 0.083% nebulizer solution Active predniSONE (DELTASONE) 20 MG tablet Active triamcinolone acetonide (KENALOG) 0.1 % creamIndications:Rash and other nonspecific skin eruption Apply to pink itchy scaly rash on hands and legs BID PRN. 30 day supply. 80 g Active Active Problems Problem Noted Date Diagnosed Date Venous hypertension of both lower extremities Overview (05/03/2020): Counseled pt on Dx, etiology, disease course, and Tx options. After thorough discussion of risks/benefit and expectations, pt wish to proceed with the plan of: Compression hoses qd, script provided. Assessment & Plan (05/03/2020 12:31 PM CDT): Counseled pt on Dx, etiology, disease course, and Tx options. After thorough discussion of risks/benefit and expectations, pt wish to proceed with the plan of: Compression hoses qd, script provided. Stasis dermatitis of both legs 05/03/2020 Overview (05/03/2020): Counseled pt on Dx, etiology, disease course, and Tx options. After thorough discussion of risks/benefit and expectations, pt wish to proceed with the plan of: Start TAC 0.1% cr PRN Assessment & Plan (05/03/2020 12:31 PM CDT): Counseled pt on Dx, etiology, disease course, and Tx options. 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 Cont TAC 0.1% cr PRN Non-compliance with treatment Female bladder prolapse Immunizations Immunization Administration Dates Next Due INFLUENZA VACCINE 11/09/2019 Family History Medical History Relation Name Comments Alcohol abuse Father Relation Name Status Comments Brother Alive Father Alcohol complic ations Mother Alive Sister Alive Son 1 Alive Son 2 Alive Son 3 Alive Social History Tobacco Use Types Packs/Day Years Used Date Smoking Tobacco: Never Smokeless Tobacco: Never Alcohol Use Standard Drinks/Week Comments No 0 (1 standard drink = 0.6 oz pur e alcohol) Denies use of alcohol Comments Unknown Sex and Gender Information Value Date Recorded Sex Assigned at Not on file 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 Gender Identity Not on file Sexual Orientation Not on file Occupation Industry Job Start Date Job End Date Disability Not on file Not on file Not on file Last Filed Vital Signs Vital Sign Reading Time Taken Comments Blood Pressure 142/64 10/19/2012 8:15 AM CDT Pulse 87 10/19/2012 8:15 AM CDT Temperature 36.5 C (97.7 F) 10/19/2012 8:15 AM CDT Respiratory Rate 16 10/19/2012 8:15 AM CDT Oxygen Saturation 97% 10/19/2012 8:15 AM CDT Inhaled Oxygen Concentration - - Weight 89 kg (196 lb 3.4 oz) 10/18/2012 4:20 PM CDT Height 154.9 cm (5' 0.98) 10/18/2012 4:20 PM CD T Body Mass Index 37.09 10/18/2012 4:20 PM CDT Plan of Treatment Health Maintenance Due Date Last Done Comments BONE DENSITY TESTING 1950 COLOGUARD (AGES 45-75) - COLON CA SCREENING 1950 COLON MONITORING 1950 COLONOSCOPY - COLON CA SCREENING 1950 CT COLONOGRAPHY - COLON CA SCREENING 1950 Colorectal Cancer Screening 1950 FIT - COLON CA SCREENING 1950 FLEX SIG - COLON CA SCREENING 1950 MAMMOGRAM 1950 HEPATITIS C SCREENING 10/31/1969 DTAP/TDAP/TD VACCINES (1 - Tdap) 11/04/1970 PNEUMOCOCCAL VACCINE 50+ (1 of 2 - PCV) 11/04/1970 ZOSTER VACCINE (1 of 2) 11/04/2001 Respiratory Syncytial Virus (RSV) Vaccine Pt: or over 60 yrs (1 - Risk 60-74 years 1-dose series) 2011 DIABETES-SERUM CREATININE 10/18/2013 10/18/2012 DIABETES-FOOT EXAM WITH MONOFILAMENT 09/20/2018 DIABETES-HGB A1C 09/20/2018 DIABETES RETINOPATHY SCREENING 03/27/2021 03/27/2019, 03/27/2019, 09/20/2018, Additional history exists DEPRESSION SCREENING 02/09/2024 DIABETES - URINE PROTEIN SCREENING 02/09/2024 COVID-19 VACCINE ( season) 2024 INFLUENZA VACCINE (#1) 2024 11/09/2019 HEPATITIS B VACCINE Aged Out No longe r eligible based on patient's age to complete this topic HIB VACCINE Aged Out No longer eligi ble based on patient's age to complete this topic HPV VACCINE Aged Out No longer eligi ble based on patient's age to complete this topic MENINGOCOCCAL (Group B) VACCINE SHARED DECISION-MAKING Aged Out No longer eligible based on patient's age to complete this topic MENINGOCOCCAL GROUPS A/C/Y/W VACCINE Aged Out No longer eligible based on patient's age to complete this topic Procedures Procedure Name Priority Date/Time Associated Diagnosis Comments EYE EXAM 08/10/2018 12:36 PM CDT COMPREHENSIVE METABOLIC PANEL STAT 10/18/2012 12:47 PM CDT from Last 3 Months or Most Recently Relevant to Health Maintenance Results * EYE EXAM (08/10/2018 12:36 PM CDT) Anatomical Region Laterality Modality Other Narrative 08/10/2018 12:36 PM CDT Ordered by an unspecified provider. us Scanned Document SCANNING ONLY Final Result * (ABNORMAL) COMPREHENSIVE METABOLIC PANEL (10/18/2012 12:47 PM CDT) Glucose 116 70 - 125 mg/dL 10/18/2012 1:44 PM [facility] Sodium 130(L) 136 - 145 mmol/L 10/18/2012 1:44 PM [facility] Potassium 3.9 3.4 - 4.5 mmol/L 10/18/2012 1:44 PM [facility] Chloride 93(L) 98 - 107 mmol/L 10/18/2012 1:44 PM [facility] CO2 24 22 - 29 mmol/L 10/18/2012 1:44 PM [facility] Calcium 9.8 8.4 - 10.2 mg/dL 10/18/2012 1:44 PM [facility] Anion Gap 17 10 - 20 mmol/L 10/18/2012 1:44 PM [facility] BUN 9(L) 9.8 - 20.1 mg/dL 10/18/2012 1:44 PM [facility] Creatinine 0.61 0.57 - 1.11 mg/dL 10/18/2012 1:44 PM [facility] eGFR by MDRD >60 >60 ml/min/1.7 3m2 10/18/2012 1:44 PM [facility] eGFR by MDRD >60 >60 ml/min/1.7 3m2 10/18/2012 1:44 PM [facility] Alkaline Phosphatase 80 40 - 150 U/L 10/18/2012 1:44 PM [facility] ALT 44 5 - 55 U/L 10/18/2012 1:44 PM [facility] AST 26 5 - 34 U/L 10/18/2012 1:44 PM [facility] Protein Total 7.0 6.4 - 8.3 gm/dL 10/18/2012 1:44 PM [facility] Albumin 3.9 3.5 - 5.0 gm/dL 10/18/2012 1:44 PM [facility] Globulin Total 3.1 2.6 - 4.0 gm/dL 10/18/2012 1:44 PM [facility] Albumin/Globulin Ratio 1.3 0.9 - 1.6 10/18/2012 1:44 PM [facility] Bilirubin Total 0.7 0.2 - 1.2 mg/dL 10/18/2012 1:44 PM [facility] Blood BLOOD SPECIMEN / Unknown Lab Venipuncture / Unknown 10/18/2012 12:47 PM CDT 10/18/2012 1:28 PM CDT Brenden Mohan MD LAB - CHEMISTRY ORDERABLES Fin al Result [facility] [address] [place] [address], [facility] from Last 3 Months or Most Recently Relevant to Health Maintenance Insurance MEDICAID - [place] Advance Directives Documents on File Type Date Recorded Patient Educational Technician Expl anation Adv Directive/Living Will/POA 10/20/2012 1:45 PM * FULL RESUSCITATION (Latest Code Status on File) Date Activated Date Inactivated Comments 10/19/2012 9:26 AM 10/19/2012 1:13 PM Care Teams Head Sulfide Operator Relationship Specialty Start Date End Date Bill Jacques MD PCP - General 08/10/18
--- OUTSIDE RECORDS SUMMARY | 2024-11-10 09:13 | XMS_ITS | Clinical Summary ---
Author Organization [facility] Address [address] [place] [address] Phone Care Team Providers Care Helpdesk Specialist Name Role Phone Unavailable Primary Care Provider Unavailabl e Immunizations Immunization Administration Dates Next Due Covid-19, Mrna, Lnp-s, Pf, 30 Mcg/0.3 Ml Dose (Bushra villanueva) 12/13/2020 Social History Tobacco Use Types Packs/Day Years Used Date Smoking Tobacco: Never Assessed Comments Unknown Sex and Gender Information Value Date Recorded Sex Assigned at Not on file Legal Sex Female 3:00 PM CDT Gender Identity Not on file Sexual Orientation Not on file Plan of Treatment Health Maintenance Due Date Last Done Comments Hepatitis C Virus (HCV) Screening 1950 TdaP Immunization 1950 Cologuard 11/04/1996 Colonoscopy 11/04/1996 Colorectal Cancer Screening 11/04/1996 Immunochemical Fecal Occult Blood 11/04/1996 Pneumococcal Immunization (5 0+ years) (1 of 1 - PCV) 11/04/2001 Zoster Immunization (1 of 2) 11/04/2001 Influenza Immunization (#1) 2024 11/09/2019 SARS-COV-2 Immunization ( season) 2024 12/13/2020, 03/06/2020, 02/14/2020 Respiratory Syncytial Virus (RSV) Immunization (Adult) (1 - 1-dose 75+ series) 11/04/2026 Hepatitis B Immunization Aged Out No longer eligible based on patient's age to complete this topic Human Papillomavirus (HPV) Immunization Aged Out No longer eligible b ased on patient's age to complete this topic Meningococcal Immunization (ACWY) Aged Out No longer eligible b ased on patient's age to complete this topic Rotavirus Immunization Aged Out No lo nger eligible based on patient's age to complete this topic
--- OUTSIDE RECORDS SUMMARY | 2024-11-10 09:13 | XMS_ITS | Clinical Summary ---
Author [place] [facility] [place] [address] Address [address] [place] [address] Care Team Providers Care Safety Professional Name Role Phone Vega Naylor MD Primary Care Provider [phone] Allergies Active Allergy Reactions Criticality Noted Date Comments Dexbrompheniramine-Pseudoe phed Rash Medium 10/18/2012 Patient denies allergy to med Medications LANTUS 100 unit/mL vial for injection 1 Active insulin lispro (HumaLOG, ADMELOG) 100 unit/mL pen for injection 1 Active losartan (COZAAR) 100 mg tablet Take 1 tablet (100 mg total) by mouth daily 1 Active NIFEdipine CC 30 mg 24 hr tablet Take 1 tablet (30 mg total) by mouth daily 1 Active potassium chloride ER 20 mEq CR tablet Take 1 tablet (20 mEq total) by mouth daily 1 Active sodium chloride 1 gram tablet Take 1 tablet (1 g total) by mouth daily Active cholecalciferol (VITAMIN D-3) 5,000 unit tablet Take 1 tablet (5,000 Units total) by mouth daily Active docusate sodium (COLACE) 100 mg capsule 1 Active furosemide (LASIX) 40 mg tablet Take 1 tablet (40 mg total) by mouth 2 (two) times a day 1 Active benzonatate (TESSALON) 100 mg capsule 1 Active famotidine (PEPCID) 20 mg tablet 1 Active hydrOXYzine (VISTARIL) 25 mg capsule Take 1 capsule (25 mg total) by mouth 2 (two) times a day 0 1 Active risperiDONE (RisperDAL) 3 mg tablet 1 Active acetaminophen (TYLENOL) 325 mg tablet Take 1 tablet (325 mg total) by mouth every 4 (four) hours as needed Active meclizine (ANTIVERT) 25 mg tablet 1 Active ipratropium-albut Alexander (DUO-NEB) 0.5-2.5 mg/3 mL nebulizer solution 1 Active hydrocortisone 2.5 % cream 1 Active albuterol 2.5 mg /3 mL (0.083 %) nebulizer solution 1 Active OLANZapine (ZyPREXA) 15 mg tablet 2 Active SSD 1 % cream 1 Active Aerochamber Plus Flow-Vu spacer 1 Active guaiFENesin (ROBITUSSIN) syrup 100 mg/5 mL 2 Active albuterol HFA (PROVENTIL HFA,VENTOLIN HFA,PROAIR HFA) 90 mcg/actuation inhalerIndication s:Mild persistent asthma without complication Inhale 2 puffs every 6 (six) hours as needed for wheezing or shortness of breath (coughing) 1 each 3 2 Active loratadine (CLARITIN) 10 mg tabletIndications :Non-seasonal allergic rhinitis due to other allergic trigger Take 1 tablet (10 mg total) by mouth daily 30 tablet 11 2 Active fluticasone propionate (FLONASE) 50 mcg/actuation nasal sprayIndications: Non-seasonal allergic rhinitis due to other allergic trigger Administer 2 sprays into each nostril daily 16 g 6 2 Active dextromethorphan- guaiFENesin (ROBITUSSIN-DM) 2-20 mg/mL liquid Take by mouth every 12 (twelve) hours Active spironolactone (ALDACTONE) 25 mg tablet Take 1 tablet (25 mg total) by mouth daily Active aspirin 81 mg chewable tablet Take 1 tablet (81 mg total) by mouth daily Active nitroglycerin (NITROSTAT) 0.4 mg SL tablet 2 Active metFORMIN (GLUCOPHAGE) 1,000 mg tablet 2 Active Austedo 6 mg tablet 3 Active rosuvastatin (CRESTOR) 20 mg tablet 3 Active rOPINIRole (REQUIP) 0.25 mg tablet Take 1 tablet (0.25 mg total) by mouth daily 30 tablet 2 3 Active ezetimibe (ZETIA) 10 mg tablet 3 Active fluticasone furoate-vilantero L (BREO ELLIPTA) 100-25 mcg/dose diskus inhaler Inhale 1 puff daily Rinse mouth with water after use. Do not swallow. 30 each 4 Active montelukast (SINGULAIR) 10 mg tabletIndications :Non-seasonal allergic rhinitis due to other allergic trigger TAKE 1 TABLET BY MOUTH AT BEDTIME 90 tablet 2 4 Active Active Problems Problem Noted Date Diagnosed Date Class 2 severe obesity due t o excess calories with serious comorbidity and body mass index (BMI) of 37.0 to 37.9 in adult 01/15/2023 Atypical chest pain 05/04/2022 DM type 2 with diabetic mixed hyperlipidemia 11/2021 Overview (02/11/2022): Last Assessment & Plan: Condition: stable Discussed glucose control targets. Educated on: Lifestyle changes, Nutrition, Foot care and Medication compliance Discussed with Nona behavior modifications to include choosing healthier options for foods and avoiding foods fast foods or foods that are fried, high in trans fats or preservatives. Nona encouraged to maintain medication compliance and to increase their current level of exercise activity to 3- 4 times weekly. Nona verbalized understanding and advised to keep all scheduled appointments. Follow up in: three months with PCP, Pressure Steamer Tender, Policy Cancellation Clerk, Gynecology Teacher and Established eye day care provider Gastroesophageal reflux disease without esophagi tis 12/18/2021 Overview (02/11/2022): Last Assessment & Plan: Condition: stable Reviewed use of antacid medication and/or diet modifications of decreasing caffeine, spicy foods, chocolate, and avoiding alcohol, tobacco, NSAIDs, and reducing citrus acids. Follow up in: three months with PCP Morbid (severe) obesity due to excess calories 1 02/17/2021 Overview (02/11/2022): Last Assessment & Plan: Condition: stable Co-morbidities: Type 2 Diabetes, Hypertension, Hyperlipidemia and GERD Follow up in: three months with PCP Periodic limb movement 09/24/2021 Overview (02/11/2022): Last Assessment & Plan: Condition: stable Follow up in: three months with PCP TAMARA (obstructive sleep apnea) 07/16/2021 Overview (02/11/2022): Last Assessment & Plan: Condition: stable Nona is encouraged to wash the mask daily with warm water and a mild non- fragant soap, rinse and allow it to air dry on a clean cloth or paper towel. Before using the mask make sure your face is clean, don't use facial moisturizers. Clean the tubing wekly. Never uses bleach to clean the accessories. Follow up in: three months with PCP Moderate persistent asthma without complication 07/16/2021 Overview (02/11/2022): Last Assessment & Plan: Condition: stable Reviewed trigger avoidance and reviewed proper use of inhalers and rescue medications. Reviewed concerning signs/symptoms and ER precautions. 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 Educated on: Lifestyle changes, Nutrition, Foot care and Medication compliance Nona educated on behavior modifications to include DASH diet, increasing their intake of vegetables, water and whole foods as well as increasing their level of exercise weekly to 3- 4 times after medical clearance from your PCP. Discussed with her the need to reduce their intake of foods high in salt, sugar, fat and preservatives. Nona encouraged to stay compliant with medication regimen and behavior modification recommendations in order to achieve a healthier lifestyle and reduce their risks. Nona verbalized understanding. Member advised to keep all scheduled appointments. Advised to continue taking all medications as prescribed and to keep all medical appointments. Continue to follow up for an annual wellness exam.Patient verbalized understanding. Discussed target blood pressure. Continue medication as prescribed from PCP/specialist. Take medications at the same time every day. Lifestyle modification advised: DASH diet, reduce stress/anxiety, discussed health weight management, activity as tolerated or advised from PCP, try to avoid alcohol and nicotine.Patient encouraged to keep all appointments and report any new or worsening symptoms to PCP.Member verbalized understanding. Follow up in: three months with PCP, Pressure Steamer Tender, Policy Cancellation Clerk, Gynecology Teacher and Established eye day care provider Diabetes mellitus 10/21/2020 Female bladder prolapse 10/21/2020 GI bleed 10/21/2020 Non-compliance with treatment 10/21/2020 Paranoid schizophrenia 10/21/2020 Overview (02/11/2022): Last Assessment & Plan: Condition: stable No recent mental health visit. Advised to follow up Medications: Taking medications as prescribed If taking medications, do not stop treatment without consulting healthcare provider. If symptoms worsen or do not improve/stabilize, notify health care provider right away. If thoughts of harming self or others notify health care provider immediately &/or seek urgent/emergent care including calling Suicide Hotline (210 or ) or 911. 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 After thorough discussion of risks/benefit and expectations, pt wish to proceed with the plan of: Start TAC 0.1% cr PRN Last Assessment & Plan: Counseled pt on Dx, etiology, disease course, and Tx options. After thorough discussion of risks/benefit and expectations, pt wish to proceed with the plan of: Start TAC 0.1% cr PRN Counseled pt on Dx, etiology, disease course, and Tx options. After thorough discussion of risks/benefit and expectations, pt wish to proceed with the plan of: Start TAC 0.1% cr PRN Last Assessment & Plan: Counseled pt on Dx, etiology, disease course, and Tx options. After thorough discussion of risks/benefit and expectations, pt wish to proceed with the plan of: Start TAC 0.1% cr PRN Venous hypertension of both lower extremities Overview (02/11/2022): Counseled pt on Dx, etiology, disease course, and Tx options. After thorough discussion of risks/benefit and expectations, pt wish to proceed with the plan of: Compression hoses qd, script provided. Last Assessment & Plan: Counseled pt on Dx, etiology, disease course, and Tx options. After thorough discussion of risks/benefit and expectations, pt wish to proceed with the plan of: Compression hoses qd, script provided. Counseled pt on Dx, etiology, disease course, and Tx options. After thorough discussion of risks/benefit and expectations, pt wish to proceed with the plan of: Compression hoses qd, script provided. Last Assessment & Plan: Counseled pt on Dx, etiology, disease course, and Tx options. After thorough discussion of risks/benefit and expectations, pt wish to proceed with the plan of: Compression hoses qd, script provided. Family History Medical History Relation Name Comments No Known Problems Father No Known Problems Mother Relation Name Status Comments Father Mother Social History Tobacco Use Types Packs/Day Years Used Date Smoking Tobacco: Never Smokeless Tobacco: Never Tobacco Cessation:Counseling Given: Not Answered AUDIT-C Answer Date Recorded Q1: How often do you have a drink containing alc ohol? 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 Gender Identity Not on file Sexual Orientation Not on file Obstetrics History Last Filed Vital Signs Vital Sign Reading Time Taken Comments Blood Pressure 100/60 03/15/2024 10:53 AM CHIEF ENGINEER [employer]OV[employer] Pulse 91 03/15/2024 10:53 AM CHIEF ENGINEER [employer] RECOVERY Temperature 36.3 C (97.3 F) 03/15/2024 10:53 AM CHIEF ENGINEER [employer]RILLING AND RECOVERY Respiratory Rate 18 03/15/2024 10:53 AM CHIEF ENGINEER [employer]ING [employer] RECOVERY Oxygen Saturation 96% 03/15/2024 10:53 AM CHIEF ENGINEER [employer]RI[employer]ING [employer] RECOVERY Inhaled Oxygen Concentration - - Weight 93.3 kg (205 lb 9.6 oz) 03/15/2024 10:53 AM CHIEF ENGINEER [employer]OVERY Height 154.9 cm (5' 1) 03/15/2024 10:53 AM CHIEF ENGINEER [employer]ING [employer] RECOVERY Body Mass Index 38.85 03/15/2024 10:53 AM CHIEF ENGINEER [employer]LLING [employer] RECOVERY Plan of Treatment Health Maintenance Due Date Last Done Comments Albumin Creatinine Ratio, Urine 1950 Breast Cancer Screening-Mammogram 1950 Colon Cancer Screening-Colonoscopy 1950 Depression Screening 1951 Fall Risk Assessment 1950 Hemoglobin A1C 1951 Hepatitis C Screening 1950 Osteoporosis Screening-Bone Density Scan 1950 eGFR 1950 Dilated Eye Exam 1950 Foot Exam 1950 DTaP/Tdap/Td Vaccine (1 - Tdap) 11/04/1962 Hepatitis B Screening 11/04/1969 Pneumococcal vaccine 65+ (1 of 2 - PCV) 11/04/1970 Zoster Vaccine (1 of 2) 11/04/2001 Well Visit 65+ 11/04/2016 Lipid Panel 05/05/2023 05/04/2022, 04/21/2021 Covid-19 Vaccine ( season) 2024 12/13/2020, 03/06/2020, 02/14/2020 Influenza Vaccine (#1) 2024 11/09/2019 Procedures Procedure Name Priority Date/Time Associated Diagnosis Comments POCT LIPID PANEL Routine 05/04/2022 12:2 4 PM CDT Hyperlipidemia associated with type 2 diabetes mellitus (HCC) from Last 3 Months or Most Recently Relevant to Health Maintenance Results * POCT lipid panel (05/04/2022 12:24 PM CDT) Cholesterol, POC 153 mg/dL HDL, POC 51 mg/dL Triglycerides, POC 173 mg/dL LDL Cholesterol POC 68 mg/dL Chol/HDL Ratio, POC 1.3 Non-HDL Cholesterol, POC 102 mg/dL Cholesterol Total, POC 153 mg/dL Capillary blood 05/04/2022 1 2:24 PM CDT Phil Fernandes MD POINT OF CARE TEST ORDERA BLES Final Result from Last 3 Months or Most Recently Relevant to Health Maintenance Insurance [facility] Care Teams Safety Professional Relationship Specialty Start Date End Date Vega Naylor MD PCP - General Internal Medicine 10/30/20
--- OUTSIDE RECORDS SUMMARY | 2024-11-10 09:13 | XMS_ITS | Encounter Summary ---
Author Organization [facility] Healthcare Address [address] [place] [address] Care Team Providers Care Test Specialist Name Role Phone Vega Naylor MD Primary Care Provider [phone] Encounter Details Date Type Department Care Team (Late st Contact Info) Description 11/30/2022 Orders Only [facility] [place] [facility] [address] [place] [id number] Scanning, Provider Social History Tobacco Use Types Packs/Day Years Used Date Smoking Tobacco: Never Smokeless Tobacco: Never AUDIT-C Answer Date Recorded Q1: How often do you have a drink containing alc ohol? 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 Gender Identity Not on file Sexual Orientation Not on file documented as of this encounter Functional Status documented as of this encounter Plan of Treatment Not on file documented as of this encounter Procedures Procedure Name Priority Date/Time Associated Diagnosis Comments SCAN - LABS 11/30/2022 documented in this encounter Results * SCAN - LABS (11/30/2022) us Provider Scanning Final Result documented in this encounter Visit Diagnoses Not on filedocumented in this encounter Care Teams Test Specialist Relationship Specialty Start Date End Date Vega Naylor MD PCP - General Internal Medicine 10/30/20 documented as of this encounter
== END 2024-11-10 09:04 | disposition home or self-care (01) ==
PROVIDERS: Visit Provider Nurse Practitioner Family
DX: Z12.31 Encounter for screening mammogram for malignant neoplasm of breast (principal)
CPT/HCPCS: 77063; 77067